=== PATIENT | male | born 1940 | race Caucasian/White ===

== ENCOUNTER 2018-05-22 10:39 | Inpatient (IN) | payer BC ==
[2018-05-22 12:12] LABS: Urine Blood NEGATIVE (NEG); Urine Glucose NEGATIVE (NEG); Urine Protein NEGATIVE (NEG); Urine pH 5.5 (5.0-7.0)
[2018-05-22] MEDS ORDERED: NA CHLORIDE 0.9% 1,000 ML ONE ×2 (12:12→13:50)
[2018-05-22] MEDS ORDERED: PANTOPRAZOLE 40 MG INJ ONE (12:12)
[2018-05-22] MEDS ORDERED: ONDANSETRON 4 MG/2 ML VIAL ONE (12:12)
[2018-05-22 13:00] LABS: Absolute Monocytes 0.7 K/uL (0.1-1.3); Absolute Neutrophil 11.2 K/uL (1.8-8.0); Basophils % 0.6 % (0-1.3); Lymphocytes % 14.4 % (15.3-44.8); MPV 8.9 fL (7.6-11.3); Monocytes % 5.2 % (3.3-12.3)
[2018-05-22 13:16] LABS: Albumin 3.3 g/dL (3.4-5.0); Bilirubin Direct 0.3 mg/dL (0-0.2); Bilirubin Total 0.9 mg/dL (0.2-1.0); Potassium 4.7 mmol/L (3.5-5.1); Protein, Total 6.8 g/dL (6.4-8.2)
--- NOTE | 2018-05-22 14:26 | ER ---
Nurse's Notes [facility] Name: Asim Ochoa Age: 77 yrs Sex: Male : 1940 Arrival Date: 05/22/2018 Time: 10:42 Bed 17 Private MD: Alexandra Freeman H Diagnosis: Gastrointestinal hemorrhage, unspecified-upper GI bleed;Orthostatic hypotension;Dehydration Presentation: 05/22 11:08 Presenting complaint: Patient states: Nausea and vomiting on , resolved aj currently, with frequent urination today. Denies burning. Patient reports generalized weakness and intermittent dizziness with urination. Transition of care: patient was not received from another setting of care. Onset of symptoms was May 20, 2018. Risk Assessment: Do you want to hurt yourself or someone else? Patient reports no desire to harm self or others. Initial Sepsis Screen: Does the patient meet any 2 criteria? No. Patient's initial sepsis screen is negative. Does the patient have a suspected source of infection? No. Patient's initial sepsis screen is negative. Care prior to arrival: None. 11:08 Method Of Arrival: Ambulatory 11:08 Acuity: JEFF 3 aj Triage Assessment: 11:10 General: Appears in no apparent distress. comfortable, Behavior is calm, cooperative, aj appropriate for age. Pain: Denies pain. Neuro: Level of Consciousness is awake, alert, obeys commands, Oriented to person, place, time, situation, Appropriate for age. Respiratory: Airway is patent Respiratory effort is even, unlabored, Respiratory pattern is regular, symmetrical. GI: Reports nausea, vomiting. : Reports urinary frequency. Derm: Skin is intact, is healthy with good turgor, Skin is pink, warm \\T\\ dry. normal. Historical: - Allergies: 11:10 No Known Allergies; aj - PMHx: 11:10 Hypertension; Ulcers; aj - PSHx: 11:10 Ulcer; aj - Immunization history:: Adult Immunizations up to date. - Social history:: Smoking status: Patient/guardian denies using tobacco, Patient uses alcohol, admits to "couple of beers" a day. - Ebola Screening: : Patient negative for fever greater than or equal to 101.5 degrees Fahrenheit, and additional compatible Ebola Virus Disease symptoms Patient denies exposure to infectious person Patient denies travel to an Ebola-affected area in the 21 days before illness onset No symptoms or risks identified at this time. Screenin:19 Abuse screen: Denies threats or abuse. Nutritional screening: No deficits noted. em Tuberculosis screening: No symptoms or risk factors identified. Fall Risk None identified. Assessment: 12:00 General: Appears in no apparent distress. comfortable, Behavior is calm, cooperative. em Pain: Denies pain. Neuro: Reports dizziness, weakness. Cardiovascular: Denies chest pain, Patient's skin is warm and dry. Respiratory: Airway is patent Respiratory effort is even, unlabored, Respiratory pattern is regular, symmetrical, Breath sounds are clear bilaterally. GI: Abdomen is flat, Bowel sounds present X 4 quads. Reports bloody stool, nausea, vomiting. : Urine is clear. EENT: No signs and/or symptoms were reported regarding the EENT system. Derm: Skin is intact, is healthy with good turgor, Skin is pink, warm \\T\\ dry. Musculoskeletal: Range of motion: intact in all extremities. 12:30 Reassessment: I agree with the above assessment by Vitaliy Brooke LVN. iw 13:17 Reassessment: Patient appears in no apparent distress at this time. Patient and/or em family updated on plan of care and expected duration. Pain level reassessed. Patient is alert, oriented x 3, equal unlabored respirations, skin warm/dry/pink. Patient denies pain at this time. Patient states feeling better. 14:00 Reassessment: Patient appears in no apparent distress at this time. Patient and/or em family updated on plan of care and expected duration. Pain level reassessed. Patient is alert, oriented x 3, equal unlabored respirations, skin warm/dry/pink. Patient states symptoms have improved. 15:00 Reassessment: Patient appears in no apparent distress at this time. Patient and/or em family updated on plan of care and expected duration. Pain level reassessed. Patient is alert, oriented x 3, equal unlabored respirations, skin warm/dry/pink. 15:15 Reassessment: Patient appears in no apparent distress at this time. Dr. Chirinos at em bedside discussing POC. 16:10 Reassessment: Patient appears in no apparent distress at this time. Patient and/or em family updated on plan of care and expected duration. Pain level reassessed. Patient is alert, oriented x 3, equal unlabored respirations, skin warm/dry/pink. Patient denies pain at this time. Patient states feeling better. 17:16 Reassessment: Patient appears in no apparent distress at this time. Patient and/or em family updated on plan of care and expected duration. Pain level reassessed. Patient is alert, oriented x 3, equal unlabored respirations, skin warm/dry/pink. Patient denies pain at this time. Patient states feeling better. Patient states symptoms have improved. Vital Signs: 11:10 BP 128 / 76; Pulse 96; Resp 16; Temp 97.7; Pulse Ox 100% on R/A; Weight 85.73 kg; aj Height 5 ft. 10 in. (177.80 cm); 12:15 BP 125 / 63; Pulse 83; Resp 18; Pulse Ox 99% on R/A; Pain 0/10; em 13:00 BP 142 / 79 Supine; Pulse 85; em 13:00 BP 110 / 70 Standing; Pulse 111; em 13:58 BP 120 / 69; Pulse 90; Resp 18; Pulse Ox 100% on R/A; Pain 0/10; em 15:00 BP 114 / 64; Pulse 85; Resp 16; Pulse Ox 99% on R/A; Pain 0/10; em 16:00 BP 141 / 78; Pulse 73; Resp 17; Pulse Ox 100% on R/A; em 17:25 BP 122 / 74; Pulse 96; Resp 16; Temp 98.6(O); Pulse Ox 100% on R/A; Pain 0/10; em 11:10 Body Mass Index 27.12 (85.73 kg, 177.80 cm) ED Course: 10:42 Patient arrived in ED. rg4 10:44 Alexandra Freeman DO is Private Physician. rg4 11:09 Triage completed. aj 11:10 Arm band placed on left wrist. Patient placed in an exam room. aj 11:14 Ankush Schroeder PA is PHCP. jr8 11:14 Michael Bautista MD is Attending Physician. jr8 11:16 Vitaliy Brooke LVN is Primary Nurse. em 11:19 Patient has correct armband on for positive identification. Bed in low position. Call em light in reach. 13:00 No provider procedures requiring assistance completed. Initial lab(s) drawn, by me, em sent to lab. X-ray(s) taken. Inserted saline lock: 20 gauge in right antecubital area, using aseptic technique. Blood collected. 14:12 CT completed. Patient moved to CT via stretcher. Patient moved back from CT. kw1 14:15 CT Abd/Pelvis - W/Contrast In Process Unspecified. EDMS 14:25 Leah Terrell MD is Hospitalizing Provider. jr8 16:00 Repeat lab(s) drawn. Inserted saline lock: 20 gauge in left forearm, using aseptic em technique. Blood collected. 17:51 Patient admitted, IV remains in place. em Administered Medications: 12:30 Drug: NS 0.9% 1000 ml Route: IV; Rate: 1000 ml; Site: right antecubital; em 13:57 Follow up: IV Status: Completed infusion; IV Intake: 1000ml em 12:32 Drug: Zofran 4 mg Route: IVP; Site: right antecubital; iw 13:58 Follow up: Response: No adverse reaction; Nausea is decreased em 12:32 Drug: ProTONIX 40 mg Route: IVP; Site: right antecubital; iw 13:30 Follow up: Response: No adverse reaction em 13:57 Drug: NS 0.9% 1000 ml Route: IV; Rate: 1 bolus; Site: right antecubital; em 15:08 Follow up: IV Status: Completed infusion; IV Intake: 1000ml em 15:55 Drug: ProTONIX 8 mg/hr Route: IV; Rate: 25 ml/hr; Site: right antecubital; em 17:59 Follow up: Response: No adverse reaction; IV Status: Infusion continued upon admission em 16:00 Drug: Octreotide Infusion (50 mcg/hr) - (Octreotide 500 mcg, NS 0.9% 500 ml) Route: IV; em Rate: 50 ml/hr; Site: left forearm; 17:59 Follow up: IV Status: Infusion continued upon admission em 18:00 Follow up: Response: No adverse reaction em Intake: 13:57 IV: 1000ml; Total: 1000ml. em 15:08 IV: 1000ml; Total: 2000ml. em Outcome: 14:25 Decision to Hospitalize by Provider. jr8 17:51 Admitted to Med/surg accompanied by tech, via wheelchair, room 404, with chart, Report em called to ALISON Damon 17:51 Condition: good 17:51 Instructed on the need for admit, Demonstrated understanding of instructions. 18:01 Patient left the ED. em Signatures: Dispatcher [employer] Kassi Nathan, Vitaliy Hussein RN, LUMBER HANDLER LUMBER HANDLER Raegan Sanchez RN RN iw Roszak, Josh, PA PA 8 Ludmila Andre 4 Anna Guy kw
--- NOTE | 2018-05-22 14:27 | EDPHYS ---
Physician Documentation [facility] Name: Asim Ochoa Age: 77 yrs Sex: Male : 1940 Arrival Date: 05/22/2018 Time: 10:42 Bed 17 Private MD: Alexandra Freeman H ED Physician Michael Bautista HPI: 05/22 12:08 This 77 yrs old Male presents to ER via Ambulatory with complaints of Nausea, jr8 Weakness. 12:08 The patient presents to the emergency department with nausea, vomiting. Onset: The jr8 symptoms/episode began/occurred acutely, 2 day(s) ago. Possible causes: unknown. The symptoms are aggravated by nothing. The symptoms are alleviated by nothing. Associated signs and symptoms: Pertinent positives: GI bleeding. Severity of symptoms: At their worst the symptoms were moderate in the emergency department the symptoms are unchanged. The patient has experienced a previous episode. The patient has not recently seen a physician. Patient stated that he had multiple episodes of vomiting on which some of it appeared coffee ground like. Since then has been having frequent urination and feels as if he may pass out. Has had this once before and ended up having gastric ulcer . Historical: - Allergies: 11:10 No Known Allergies; aj - PMHx: 11:10 Hypertension; Ulcers; aj - PSHx: 11:10 Ulcer; aj - Immunization history:: Adult Immunizations up to date. - Social history:: Smoking status: Patient/guardian denies using tobacco, Patient uses alcohol, admits to "couple of beers" a day. - Ebola Screening: : Patient negative for fever greater than or equal to 101.5 degrees Fahrenheit, and additional compatible Ebola Virus Disease symptoms Patient denies exposure to infectious person Patient denies travel to an Ebola-affected area in the 21 days before illness onset No symptoms or risks identified at this time. ROS: 12:34 Eyes: Negative for injury, pain, redness, and discharge, ENT: Negative for injury, jr8 pain, and discharge, Neck: Negative for injury, pain, and swelling, Cardiovascular: Negative for chest pain, palpitations, and edema, Respiratory: Negative for shortness of breath, cough, wheezing, and pleuritic chest pain, Back: Negative for injury and pain, MS/Extremity: Negative for injury and deformity, Skin: Negative for injury, rash, and discoloration, Neuro: Negative for headache, weakness, numbness, tingling, and seizure. 12:34 Abdomen/GI: Positive for nausea, vomiting, hematemesis. Exam: 12:34 Eyes: Pupils equal round and reactive to light, extra-ocular motions intact. Lids and jr8 lashes normal. Conjunctiva and sclera are non-icteric and not injected. Cornea within normal limits. Periorbital areas with no swelling, redness, or edema. ENT: Nares patent. No nasal discharge, no septal abnormalities noted. Tympanic membranes are normal and external auditory canals are clear. Oropharynx with no redness, swelling, or masses, exudates, or evidence of obstruction, uvula midline. Mucous membranes moist. Neck: Trachea midline, no thyromegaly or masses palpated, and no cervical lymphadenopathy. Supple, full range of motion without nuchal rigidity, or vertebral point tenderness. No Meningismus. Cardiovascular: Regular rate and rhythm with a normal S1 and S2. No gallops, murmurs, or rubs. Normal PMI, no JVD. No pulse deficits. Respiratory: Lungs have equal breath sounds bilaterally, clear to auscultation and percussion. No rales, rhonchi or wheezes noted. No increased work of breathing, no retractions or nasal flaring. Abdomen/GI: Soft, non-tender, with normal bowel sounds. No distension or tympany. No guarding or rebound. No evidence of tenderness throughout. Back: No spinal tenderness. No costovertebral tenderness. Full range of motion. Skin: Warm, dry with normal turgor. Normal color with no rashes, no lesions, and no evidence of cellulitis. MS/ Extremity: Pulses equal, no cyanosis. Neurovascular intact. Full, normal range of motion. Neuro: Awake and alert, GCS 15, oriented to person, place, time, and situation. Cranial nerves II-XII grossly intact. Motor strength 5/5 in all extremities. Sensory grossly intact. Cerebellar exam normal. Normal gait. 14:05 Abdomen/GI: Rectal exam: Prostate: normal, rectal tone normal, Stool: guaiac positive, jr8 black, hemorrhoid(s), external, without bleeding, without inflammation, without thrombosis, without pain. Vital Signs: 11:10 BP 128 / 76; Pulse 96; Resp 16; Temp 97.7; Pulse Ox 100% on R/A; Weight 85.73 kg; aj Height 5 ft. 10 in. (177.80 cm); 12:15 BP 125 / 63; Pulse 83; Resp 18; Pulse Ox 99% on R/A; Pain 0/10; em 13:00 BP 142 / 79 Supine; Pulse 85; em 13:00 BP 110 / 70 Standing; Pulse 111; em 13:58 BP 120 / 69; Pulse 90; Resp 18; Pulse Ox 100% on R/A; Pain 0/10; em 15:00 BP 114 / 64; Pulse 85; Resp 16; Pulse Ox 99% on R/A; Pain 0/10; em 16:00 BP 141 / 78; Pulse 73; Resp 17; Pulse Ox 100% on R/A; em 17:25 BP 122 / 74; Pulse 96; Resp 16; Temp 98.6(O); Pulse Ox 100% on R/A; Pain 0/10; em 11:10 Body Mass Index 27.12 (85.73 kg, 177.80 cm) aj MDM: 11:14 Patient medically screened. jr8 14:16 Data reviewed: vital signs, nurses notes, lab test result(s), radiologic studies, CT jr8 scan, and as a result, I will admit patient. Data interpreted: Pulse oximetry: on room air is 100 %. Interpretation: normal. Counseling: I had a detailed discussion with the patient and/or guardian regarding: the historical points, exam findings, and any diagnostic results supporting the discharge/admit diagnosis, lab results, radiology results, the need for further work-up and treatment in the hospital. ED course: Dr. Chirinos will consult and see patient for upper GI bleeding . 05/22 11:14 Order name: Basic Metabolic Panel; Complete Time: 13:05/22 11:14 Order name: CBC with Diff; Complete Time: 13:05/22 11:14 Order name: Creatinine for Radiology; Complete Time: 13:05/22 11:14 Order name: Hepatic Function; Complete Time: 13:19 05/22 11:14 Order name: Lipase; Complete Time: 13:05/22 11:40 Order name: TS; Complete Time: 14:10 05/22 11:59 Order name: Urine Dipstick--Ancillary (enter results) ag 05/22 13:41 Order name: CT Abd/Pelvis - W/Contrast; Complete Time: 14:58 05/22 14:09 Order name: Lactate; Complete Time: 15:41 05/22 14:09 Order name: Protime (+inr); Complete Time: 15:41 05/22 14:09 Order name: Ptt, Activated; Complete Time: 15:41 05/22 15:46 Order name: US Rp Exam Complete lorelei 05/22 16:10 Order name: Hemoglobin em 05/22 16:39 Order name: Hemoglobin; Complete Time: 16:40 EDMS 05/22 11:14 Order name: IV Saline Lock; Complete Time: 12:54 05/22 11:14 Order name: Labs collected and sent; Complete Time: 12:54 05/22 11:14 Order name: Urine Dipstick-Ancillary (obtain specimen); Complete Time: 12:54 05/22 11:40 Order name: Orthostatics; Complete Time: 13:14 Administered Medications: 12:30 Drug: NS 0.9% 1000 ml Route: IV; Rate: 1000 ml; Site: right antecubital; em 13:57 Follow up: IV Status: Completed infusion; IV Intake: 1000ml em 12:32 Drug: Zofran 4 mg Route: IVP; Site: right antecubital; iw 13:58 Follow up: Response: No adverse reaction; Nausea is decreased em 12:32 Drug: ProTONIX 40 mg Route: IVP; Site: right antecubital; iw 13:30 Follow up: Response: No adverse reaction em 13:57 Drug: NS 0.9% 1000 ml Route: IV; Rate: 1 bolus; Site: right antecubital; em 15:08 Follow up: IV Status: Completed infusion; IV Intake: 1000ml em 15:55 Drug: ProTONIX 8 mg/hr Route: IV; Rate: 25 ml/hr; Site: right antecubital; em 17:59 Follow up: Response: No adverse reaction; IV Status: Infusion continued upon admission em 16:00 Drug: Octreotide Infusion (50 mcg/hr) - (Octreotide 500 mcg, NS 0.9% 500 ml) Route: IV; em Rate: 50 ml/hr; Site: left forearm; 17:59 Follow up: IV Status: Infusion continued upon admission em 18:00 Follow up: Response: No adverse reaction em Disposition: 05/22/18 14:25 Hospitalization ordered by Leah Terrell for Inpatient Admission. Preliminary diagnosis are Gastrointestinal hemorrhage, unspecified - upper GI bleed, Orthostatic hypotension, Dehydration. - Bed requested for Telemetry/MedSurg (Inpatient). - Status is Inpatient Admission. em - Condition is Stable. - Problem is new. - Symptoms have improved. UTI on Admission? No Addendum: 05/26/2018 08:02 Co-signature as Attending Physician, Michael Bautista MD I agree with the assessment and c brantley plan of care. Signatures: Dispatcher [employer] Kassi Nathan RN RN aj Anderson, Corey, MD MD cha Munoz, Edgar, WELD TECHNICIAN WELD TECHNICIAN em Raegan Egan RN RN iw Ankush Schroeder, PA PA jr8 Karla Arechiga ag Corrections: (The following items were deleted from the chart) 05/22 14:05 12:34 Eyes: Pupils equal round and reactive to light, extra-ocular motions intact. Lids jr8 and lashes normal. Conjunctiva and sclera are non-icteric and not injected. Cornea within normal limits. Periorbital areas with no swelling, redness, or edema. ENT: Nares patent. No nasal discharge, no septal abnormalities noted. Tympanic membranes are normal and external auditory canals are clear. Oropharynx with no redness, swelling, or masses, exudates, or evidence of obstruction, uvula midline. Mucous membranes moist. Neck: Trachea midline, no thyromegaly or masses palpated, and no cervical lymphadenopathy. Supple, full range of motion without nuchal rigidity, or vertebral point tenderness. No Meningismus. Cardiovascular: Regular rate and rhythm with a normal S1 and S2. No gallops, murmurs, or rubs. Normal PMI, no JVD. No pulse deficits. Respiratory: Lungs have equal breath sounds bilaterally, clear to auscultation and percussion. No rales, rhonchi or wheezes noted. No increased work of breathing, no retractions or nasal flaring. Abdomen/GI: Soft, non-tender, with normal bowel sounds. No distension or tympany. No guarding or rebound. No evidence of tenderness throughout. Back: No spinal tenderness. No costovertebral tenderness. Full range of motion. Skin: Warm, dry with normal turgor. Normal color with no rashes, no lesions, and no evidence of cellulitis. MS/ Extremity: Pulses equal, no cyanosis. Neurovascular intact. Full, normal range of motion. Neuro: Awake and alert, GCS 15, oriented to person, place, time, and situation. Cranial nerves II-XII grossly intact. Motor strength 5/5 in all extremities. Sensory grossly intact. Cerebellar exam normal. Normal gait. jr8 14:25 14:25 Hospitalization Ordered by Leah Terrell MD for Inpatient Admission. Preliminary jr8 diagnosis is Gastrointestinal hemorrhage, unspecified; Orthostatic hypotension; Dehydration. Bed requested for Telemetry/MedSurg (Inpatient). Status is Inpatient Admission. Condition is Stable. Problem is new. Symptoms have improved. UTI on Admission? No. jr8 16:57 14:25 05/22/2018 14:25 Hospitalization Ordered by Leah Terrell MD for Inpatient ag Admission. Preliminary diagnosis is Gastrointestinal hemorrhage, unspecified - upper GI bleed; Orthostatic hypotension; Dehydration. Bed requested for Telemetry/MedSurg (Inpatient). Status is Inpatient Admission. Condition is Stable. Problem is new. Symptoms have improved. UTI on Admission? No. jr8 18:01 16:57 05/22/2018 14:25 Hospitalization Ordered by Leah Terrell MD for Inpatient em Admission. Preliminary diagnosis is Gastrointestinal hemorrhage, unspecified - upper GI bleed; Orthostatic hypotension; Dehydration. Bed requested for Telemetry/MedSurg (Inpatient). Status is Inpatient Admission. Condition is Stable. Problem is new. Symptoms have improved. UTI on Admission? No. ag
--- NOTE | 2018-05-22 14:49 | RAD REPORT ---
EXAM DESCRIPTION: CT - Abdomen Pelvis W Contrast - 05/22/2018 2:15 pm CLINICAL HISTORY: Abdominal pain with vomiting/dysuria COMPARISON: none. TECHNIQUE: Computed axial tomography of the abdomen pelvis was obtained. 100 cc Isovue-300 was admin istered intravenously. Oral contrast was not requested which limits evaluation of bowel. All CT scans are performed using dose optimization technique as appropriate and may include automated exposure control or mA/KV adjustment according to patient size. FINDINGS: Several small gallstones are present. Gallbladder wall is not thickened. The liver, pancreas, adrenal and right kidney appear unremarkable. Splenic granulomata. A 10 millimet er intermediate density mass is present within the left kidney. There is no evidence of diverticulitis. Spondylolysis involves L5. Mild anterior subluxation of L5 on S1 The appendix is normal Wall of the distal stomach appears thickened IMPRESSION: Cholelithiasis without evidence of cholecystitis 10 millimeter left renal mass does not represent a simple cyst. It may represent a benign complex cys t or neoplasm. It is recommended that the patient have Add nonemergent renal ultrasound for further e valuation Wall of the distal stomach appears thickened. This can be secondary to incomplete distention or patho logy such as inflammation or mass
[2018-05-22] MEDS ORDERED: PANTOPRAZOLE INJ 80 MG in NA CHLORIDE 0.9% 250 ML IV SCH (15:00)
[2018-05-22 15:05] LABS: Protime INR 1.13
[2018-05-22] MEDS ORDERED: OCTREOTIDE 500 MCG in NA CHLORIDE 0.9% 500 ML IV SCH (16:00)
--- NOTE | 2018-05-22 18:24 | P.HP ---
Certification for Inpatient Patient admitted to: Inpatient With expected LOS: >2 Midnights Patient will require the following post-hospital care: None Practitioner: I am a practitioner with admitting privileges, knowledge of patient current condition, hospital course, and medical plan of care. Services: Services provided to patient in accordance with Admission requirements found in Title 42 Section 412.3 of the Code of Federal Regulations Patient History Date of Service: 05/22/18 Primary Care Provider: Dr ADAME Reason for admission: GI bleed History of Present Illness: This is a 77-year-old male with significant past medical history of high blood pressure and gastric ulcer who has had gastric ulcer for over 26 years presented to the ED complaining of having some coffee-ground emesis since past 2 days. Patient stated that he had 1 episode of her meds this about 3 days ago and has got progressively worse. Patient has also noticed that he has had black tarry stools for past couple of days as well. Patient initially was doing well however recently started having some weakness and dizziness associated with the emesis and black tarry stool and thus decided to come to the ER to get further checked out. Patient states that about 26 years ago he has had gastric ulcers were he had an EGD done with the bleeding. Denies having any nausea constipation diarrhea shortness of breath or chest pain at this time. No other complaints to offer at this time Allergies No Known Allergies Allergy (Verified 05/22/18 18:35) Home medications list reviewed: Yes - Past Medical/Surgical History Has patient received pneumonia vaccine in the past: No Diabetic: No -: Hypertension -: Gastric ulcer Past Surgical History: Reviewed- Non-Contributory - Family History Family History: Reviewed- Non-Contributory - Social History Smoking Status: Never smoker Counseled patient to stop smoking for: less than 10 minutes Smoking therapy provided: No Patient receptive to therapy: No Alcohol use: No CD- Drugs: No Caffeine use: No Place of Residence: Home Review of Systems 10-point ROS is otherwise unremarkable Physical Examination - Vital Signs Temperature: 98.6 F Blood Pressure: 122/74 Pulse: 96 Respirations: 16 - Physical Exam General: Alert, In no apparent distress HEENT: Atraumatic, PERRLA, Mucous membr. moist/pink, EOMI, Sclerae nonicteric Neck: Supple, 2+ carotid pulse no bruit, No LAD, Without JVD or thyroid abnormality Respiratory: Clear to auscultation bilaterally, Normal air movement Cardiovascular: Regular rate/rhythm, Normal S1 S2 Gastrointestinal: Normal bowel sounds, No tenderness Musculoskeletal: No tenderness Integumentary: No rashes Neurological: Normal gait, Normal speech, Normal strength at 5/5 x4 extr, Normal tone, Normal affect Lymphatics: No axilla or inguinal lymphadenopathy - Studies Laboratory Data (last 24 hrs) 05/22/18 14:35: PT 13.3 H, INR 1.13, APTT 24.0 L 05/22/18 12:30: Creatinine 1.10 05/22/18 12:30: WBC 14.2 H, Hgb 12.8 L, Hct 38.0 L, Plt Count 250 05/22/18 12:30: Sodium 146 H, Potassium 4.7, BUN 41 H, Creatinine 1.07, Glucose 148 H, Total Bilirubin 0.9, AST 15, ALT 16, Alkaline Phosphatase 78, Lipase 150 Assessment and Plan - Problems (Diagnosis) (1) Upper GI bleed Current Visit: Yes Status: Acute Plan: Patient with acute upper GI bleed with coffee-ground emesis and black tarry stool -H&H is stable at this time. Will repeat q.4 hr -placed on IV Protonix and octreotide at this time -general surgery consulted. Recommendations appreciated at this time -GI unavailable at this time -general surgery planned to do EGD in about 24-48 hr (2) Hypertension Current Visit: Yes Status: Chronic Plan: Stable at this time Qualifiers: Hypertension type: essential hypertension Qualified Code(s): I10 - Essential (primary) hypertension (3) History of gastric ulcer Current Visit: Yes Status: Chronic Plan: For over 26 years has been taking Protonix. Currently on Protonix - Plan Patient will be admitted to medical-surgical floor for further treatment of his upper GI bleed. Discharge Plan: Home Plan to discharge in: 48 Hours - Advance Directives Does patient have a Living Will: No Does patient have a Durable POA for Healthcare: No - Code Status/Comfort Care Code Status Assessed: Yes Critical Care: No
[2018-05-22 18:34] VITALS: BMI 24.0
[2018-05-22] MEDS ORDERED: ONDANSETRON 4 MG/2 ML VIAL IV PRN (18:36)
[2018-05-22 20:11] LABS: Hematocrit 31.2 % (39.6-49.0)
--- NOTE | 2018-05-22 20:37 | CON ---
Date of Consultation: 05/22/2018 Brief History Of Present Illness: Patient is a 77-year-old male, who presents to the [facility] after an episode of vomiting bloody material on . He states that he was in his normal st ate of health prior to this and was doing well, but had not had increased appetite as of the last few days. He had been having normal bowel movements, which were nonbloody. He normally checks his stoo l for blood as he has had a history of bleeding gastric ulcer approximately 26 years ago, treated wit h endoscopy and ablation at that time by his report. He states that since then he has had no recurre nt episodes. He has not never had a colonoscopy and has not had any repeat endoscopy, but has no lesia dence of GI bleeding until this most recent episode. He had 1 episode of black coffee-grounds emesis . There was no bright red component and then several days later, he developed black tarry stool and some dizziness and fatigue, as such he came to the emergency room with the above-stated complaints. Past Medical History: Significant for hypertension and gastric ulcers. Past Surgical History: He has had an EGD and ablation/cautery of bleeding gastric ulcer. Allergies: NO KNOWN DRUG ALLERGIES. Medications: He only takes an antihypertensive, which he cannot recall the name of right now, but de nies taking any blood thinners including aspirin. Social History: Denies smoking. He drinks a 12-pack of beer per week minimum. He denies any recrea tional drug use. 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 Review of Systems: A 10-point review of systems other than HPI denies. Physical Examination: Vital Signs: At the time of my examination, his vital signs were stable. His vital signs showed a b lood pressure 128/76, pulse of 96, respiratory rate 16, temperature 97.7. He is saturating 100% on r oom air. He is approximately 5 foot 10 inch, 85 kg. General: He is awake, alert, oriented. Psychiatric: He is appropriate and conversive. HEENT: Normocephalic. Sclerae are anicteric. His mucous membranes are moist. His oropharynx is cl ear. Neck: Supple. No JVD Chest: Normal expansion and excursion. Cardiovascular: Regular rate and rhythm. Pulmonary: Clear to auscultation bilaterally. Abdomen: Soft, nontender, nondistended. No rebound. No guarding. No focal peritonitis. Extremities: No clubbing, cyanosis, or edema. Skin: Warm and dry. Laboratory Data: Reveals a white blood count 14.2, hemoglobin is 12.8, hematocrit of 38.0, platelet count is 250, neutrophils 78%. His PT 13.3, INR 1.13, PTT is 24.0. His sodium was 136, potassium 4. 7, chloride 112, carbon dioxide 27, BUN 41, creatinine 1.1, glucose is 148, lactic acid is 2.3, total bilirubin 0.9, direct component 0.3, AST 15, ALT 16, alkaline phosphatase is 78, lipase is 150. UA was essentially negative. He had imaging performed, which included an abdomen and pelvis CT, which w as officially read as cholelithiasis without evidence of cholecystitis. A 10 mm left renal mass does not represent a simple cyst. It may represent a benign complex cyst or neoplasm. It is recommended the patient have a nonemergent renal ultrasound for further evaluation. The distal stomach appears thickened. It could be secondary to incomplete distention or pathology such as inflammation or mass. Assessment And Plan: This is a 77-year-old male, who comes in with gastrointestinal bleeding, likely acute upper gastrointestinal bleeding. 1.IV fluid hydration. 2.Recheck labs and check hemoglobin counts to see if patient requires transfusion or any increased r esuscitation. 3.I have explained the risks, benefits, and alternatives of endoscopy, EGD, and control of bleeding pathology including, but not limited to bleeding, infection, damage to surrounding tissues, perforati on, need for further operations and procedures. I have also explained that should we not be able to obtain control and there is a bleeding ulcer, which is symptomatic, we will likely need to proceed wi th emergency surgery and the risks, benefits, and alternatives of that particular plan. Patient agre es to proceed as indicated. Continue medical management. I will follow along with you. DEVIKA/RODNEY Voice ID: [id number] Report ID: [id number]
[2018-05-22] MEDS: NA CHLORIDE 0.9% 1,000 ML IV SCH (20:38)
--- NOTE | 2018-05-22 21:00 | RAD REPORT ---
EXAM DESCRIPTION: US - Renal Ultrasound-Complete - 05/22/2018 5:22 pm CLINICAL HISTORY: . Renal mass COMPARISON: May 22, 2018 cat scan FINDINGS: The right kidney measures 10 cm with a normal echotexture. The left kidney measures 10 cm with a normal echotexture. Hydronephrosis is not seen. No gross abnormality of the bladder noted IMPRESSION: The 10 millimeter mass within the left kidney seen on the CT scan on the same date is no t visualized on this examination. It is recommended that the patient have an unenhanced CT scan of th e kidneys. This can be compared with the CT scan performed today to determine if there is abnormal en hancement
[2018-05-23 01:02] LABS: Hematocrit 32.5 % (39.6-49.0)
[2018-05-23] MEDS: PANTOPRAZOLE INJ 80 MG in NA CHLORIDE 0.9% 250 ML IV SCH ×4 (02:00→22:00)
[2018-05-23] MEDS: OCTREOTIDE 500 MCG in NA CHLORIDE 0.9% 500 ML IV SCH ×2 (04:11→16:02)
[2018-05-23] MEDS: NA CHLORIDE 0.9% 1,000 ML IV SCH ×2 (04:17→14:36)
[2018-05-23 05:31] LABS: Absolute Lymphocytes (CBC) 2.7 K/uL (0.7-4.9); Absolute Monocytes 0.7 K/uL (0.1-1.3); Absolute Neutrophil 3.9 K/uL (1.8-8.0); Eosinophils % 4.6 % (0-4.4); Hematocrit 30.5 % (39.6-49.0); Lymphocytes % 34.4 % (15.3-44.8); MPV 8.5 fL (7.6-11.3); Monocytes % 9.4 % (3.3-12.3); RBC Red Blood Cell Count 3.22 M/uL (4.33-5.43)
[2018-05-23 05:45] LABS: Albumin 2.9 g/dL (3.4-5.0); Bilirubin Total 0.8 mg/dL (0.2-1.0); Magnesium 2.3 mg/dL (1.8-2.4); Phosphorus 2.9 mg/dL (2.5-4.9); Potassium 4.3 mmol/L (3.5-5.1); Protein, Total 5.6 g/dL (6.4-8.2)
[2018-05-23] MEDS ORDERED: INFLUENZA VACCINE (for 3y+) 0.5 ML DOSE IMVAC ONE (08:00)
[2018-05-23 08:32] LABS: Hematocrit 31.4 % (39.6-49.0)
--- NOTE | 2018-05-23 09:53 | P.PN ---
Subjective Date of Service: 05/23/18 Primary Care Provider: Dr ADAME Chief Complaint: GI bleed Subjective: Improving (Patient has no pain, has increased appetite, not dizzy, or light headed any longer) Physical Examination - Vital Signs Temperature: 97.9 F Blood Pressure: 133/65 Pulse: 82 Respirations: 16 Pulse Ox (%): 100 - Physical Exam General: Alert, In no apparent distress, Cooperative Gastrointestinal: Soft and benign, Non-distended, No ascites, No tenderness, No masses, No rebound, No guarding - Studies Laboratory Data (last 24 hrs) 05/22/18 14:35: PT 13.3 H, INR 1.13, APTT 24.0 L 05/22/18 12:30: Creatinine 1.10 05/22/18 12:30: WBC 14.2 H, Hgb 12.8 L, Hct 38.0 L, Plt Count 250 05/22/18 12:30: Sodium 146 H, Potassium 4.7, BUN 41 H, Creatinine 1.07, Glucose 148 H, Total Bilirubin 0.9, AST 15, ALT 16, Alkaline Phosphatase 78, Lipase 150 Assessment And Plan - Current Problems (Diagnosis) (1) Upper GI bleed Current Visit: Yes Status: Acute Plan: - continue medical management - clear liquid diet today - NPO after midnight - EGD (upper endoscopy) in AM - I have explained the risks, benefits, and alternatives to EGD including but not limited to bleeding, infection, perforation, damage to surrounding organs, need for more surgery, he agrees to proceed
--- NOTE | 2018-05-23 12:25 | P.PN ---
Subjective Date of Service: 05/23/18 Primary Care Provider: Dr ADAME Chief Complaint: GI bleed Subjective: Tolerating diet, Ambulating, Improving, Doing well Review of Systems 10-point ROS is otherwise unremarkable Physical Examination - Vital Signs Temperature: 97.9 F Blood Pressure: 133/65 Pulse: 82 Respirations: 16 Pulse Ox (%): 100 - Physical Exam General: Alert, In no apparent distress HEENT: Atraumatic, PERRLA, EOMI Neck: Supple, JVD not distended Respiratory: Clear to auscultation bilaterally, Normal air movement Cardiovascular: Regular rate/rhythm, Normal S1 S2 Gastrointestinal: Normal bowel sounds, No tenderness Musculoskeletal: No tenderness Integumentary: No rashes Neurological: Normal speech, Normal tone, Normal affect Lymphatics: No axilla or inguinal lymphadenopathy - Studies Laboratory Data (last 24 hrs) 05/22/18 14:35: PT 13.3 H, INR 1.13, APTT 24.0 L 05/22/18 12:30: Creatinine 1.10 05/22/18 12:30: WBC 14.2 H, Hgb 12.8 L, Hct 38.0 L, Plt Count 250 05/22/18 12:30: Sodium 146 H, Potassium 4.7, BUN 41 H, Creatinine 1.07, Glucose 148 H, Total Bilirubin 0.9, AST 15, ALT 16, Alkaline Phosphatase 78, Lipase 150 Medications List Reviewed: Yes Assessment And Plan - Current Problems (Diagnosis) (1) Upper GI bleed Current Visit: Yes Status: Acute Plan: Patient with acute upper GI bleed with coffee-ground emesis and black tarry stool -H&H is stable at this time. Will repeat q.4 hr -placed on IV Protonix and octreotide at this time -general surgery consulted. Recommendations appreciated at this time -GI unavailable at this time -general surgery planned to do EGD aniya AM (2) Hypertension Current Visit: Yes Status: Chronic Plan: Stable at this time Qualifiers: Hypertension type: essential hypertension Qualified Code(s): I10 - Essential (primary) hypertension (3) History of gastric ulcer Current Visit: Yes Status: Chronic Plan: For over 26 years has been taking Protonix. Currently on Protonix - Plan Pending Clinical Improvement. Planned for EGD tomorrow Discharge Plan: Home Plan to discharge in: 48 Hours - Code Status/Comfort Care Code Status Assessed: Yes Critical Care: No
[2018-05-23 12:35] LABS: Hematocrit 31.1 % (39.6-49.0)
--- NOTE | 2018-05-23 13:32 | EKG ---
Test Date: 2018-05-23 Test Time: 01:43:57 Telecommunication Systems Designer: HAIR ASSISTANT MEASUREMENT RESULTS: Intervals: Rate: 65 PA: QRSD: 148 QT: 438 QTc: 455 [place]: P: PA: QRS: -59 T: 42 INTERPRETIVE STATEMENTS: Atrial fibrillation Left axis deviation Right bundle branch block Abnormal ECG No previous ECG available for comparison Electronically Signed On 05-23-18 13:21:40 GRADUATE FELLOW by Sarabjit Saucedo
--- NOTE | 2018-05-23 22:58 | CON ---
Date of Consultation: 05/23/[address] Terrell's service on 05/22/2018. I saw the patient on 05/23/2018. Reason For Consultation: Atrial fibrillation. History Of Present Illness: Mr. Ochoa is a 77-year-old white man, very healthy for his age, had a history of peptic ulcer disease approximately 20 years ago. Has a history of hypertension. Dr. Freeman takes care of him and gives him Lotrel for that and has been fairly well controlled. He came in with an upper GI bleed, was found to have hemoglobin of approximately 10.2. Rest of his blood work was u nremarkable. He was found to be in atrial fibrillation at a rate of 82, unknown duration. The patie nt has not had atrial fibrillation in the past as far as he knows, but has no symptoms with it, so th e onset of that is certainly unknown. He denied any cardiac symptoms with that. Past Medical History: Otherwise as stated earlier. Allergies: NONE. Review of Systems: Negative. Social History: Negative for tobacco, alcohol, or drug use. Family History: Unremarkable. Medications: At home include Lotrel. Physical Examination: Vital Signs: Stable. He was in atrial fibrillation at a rate of 80. Afebrile. HEENT: Negative. Neck: Supple with no bruit. Chest: Clear. Cardiac: Revealed atrial fibrillation. No murmurs, gallops, or rubs. Abdomen: Benign. Extremities: Revealed no clubbing, cyanosis, or edema. Diagnostic Data: As stated earlier. Impression And Plan: Atrial fibrillation of unknown duration, asymptomatic. The patient has an echo cardiogram pending. I think he needs to be cared for from a gastrointestinal bleed standpoint first and needs to have an upper endoscopy, and he is cleared for that. After the endoscopy, we will make a decision regarding anticoagulation. Certainly, the echocardiogram will help us in that direction. Despite his age and his hypertension, he still had a low CHADS score. If his echocardiogram is norm al, we may suffice with aspirin. I will make sure he gets an outpatient Lexiscan, and an appointment with me in the near future. AMANDA/RODNEY Voice ID: [id number] Report ID: [id number]
[2018-05-24] MEDS: NA CHLORIDE 0.9% 1,000 ML IV SCH ×5 (00:36→20:36)
[2018-05-24] MEDS: OCTREOTIDE 500 MCG in NA CHLORIDE 0.9% 500 ML IV SCH (01:40)
[2018-05-24] MEDS ORDERED: PANTOPRAZOLE 40 MG INJ ONE (04:32)
[2018-05-24] MEDS ORDERED: NA CHLORIDE 0.9% 250 ML ONE (04:32)
[2018-05-24] MEDS: PANTOPRAZOLE INJ 80 MG in NA CHLORIDE 0.9% 250 ML IV SCH ×2 (05:15→08:00)
[2018-05-24 06:39] LABS: Absolute Monocytes 0.6 K/uL (0.1-1.3); Absolute Neutrophil 3.4 K/uL (1.8-8.0); Eosinophils % 5.1 % (0-4.4); Hematocrit 29.3 % (39.6-49.0); Lymphocytes % 31.2 % (15.3-44.8); MPV 8.8 fL (7.6-11.3); Monocytes % 9.2 % (3.3-12.3); RBC Red Blood Cell Count 3.07 M/uL (4.33-5.43)
[2018-05-24 07:15] LABS: ALT/SGPT 14 U/L (12-78); AST/SGOT 15 U/L (15-37); Albumin 2.9 g/dL (3.4-5.0); Alkaline Phosphatase 62 U/L (45-117); BUN Blood Urea Nitrogen 14 mg/dL (7-18); Bicarbonate 23 mmol/L (21-32); Bilirubin Total 0.7 mg/dL (0.2-1.0); Folic Acid, (Folate) 14.2 ng/mL (3.1-17.5); Glucose Level 87 mg/dL (74-106); Magnesium 2.2 mg/dL (1.8-2.4); Phosphorus 2.6 mg/dL (2.5-4.9); Protein, Total 5.6 g/dL (6.4-8.2); Sodium Level 144 mmol/L (136-145); Thyroid Stimulating Hormone 0.212 uIU/mL (0.360-3.740)
[2018-05-24] MEDS ORDERED: BENAZEPRIL PO SCH (09:00)
[2018-05-24] MEDS: AMLODIPINE 10 MG TAB PO SCH (09:00)
[2018-05-24] MEDS ORDERED: [UNRECOGNIZED DRUG - OTHER] PO SCH (09:00)
[2018-05-24] MEDS: BENAZEPRIL 20 MG TAB PO SCH (09:00)
[2018-05-24] MEDS ORDERED: AMLODIPINE BESYLATE PO SCH (09:00)
[2018-05-24] MEDS ORDERED: LIDOCAINE 1% MPF 2 ML AMPULE ONE (09:28)
[2018-05-24] MEDS ORDERED: PROPOFOL 200 MG/20 ML VIAL IV ONE (09:28)
[2018-05-24] MEDS ORDERED: Ringers Lactate 1,000 ML IV ONE (09:34)
--- NOTE | 2018-05-24 09:49 | ENDO RPT ---
[address], [address] EGD PROCEDURE REPORT EXAM DATE: 05/24/2018 PATIENT NAME: Asim Ochoa MR#: [id number] BIRTHDATE: 1940 ATTENDING: Michael Chirinos DR STATUS: inpatient - 7 DIRECTOR OF HOTEL: Yen Elizabeth RN and Polo Peterson [facility] INDICATIONS: The patient is a 77 yr old Male here for an EGD due to upper G.I. bleeding PROCEDURE PERFORMED: EGD with biopsy for H. pylori MEDICATIONS: Per Anesthesia. TOPICAL ANESTHETIC: none CONSENT: The patient understands the risks and benefits of the procedure and understands that these risks include, but are not limited to: sedation, allergic reaction, infection, perforation and/or bleeding. Alternative means of evaluation and treatment include, among others: physical exam, x-rays, and/or surgical intervention. The patient elects to proceed with this endoscopic procedure. DESCRIPTION OF PROCEDURE: During intra-op preparation period all mechanical medical equipment was checked for proper function. Hand hygiene and appropriate measures for infection prevention was taken. Procedure, possible complications, and alternatives including but not limited to the possibility of bleeding, perforation, tear, infection, sepsis, need for surgery, need for blood transfusion, and anesthesia related complications were explained to the patient. After the risks, benefits and alternatives of the procedure were thoroughly explained, Informed consent was verified, confirmed and timeout was successfully executed by the treatment team. The patient was placed in the left lateral position. The patient was anesthetized with topical anesthesia. Through the anesthetized oropharyngeal area, the scope was passed without any difficulty. The Pentax EG-[id number] ([id number]) endoscope was introduced through the mouth and advanced to the first portion of the duodenum. Retroflexed views revealed no abnormalities. The gastroscope was then slowly withdrawn and removed. LA Class A esophagitis was found in the gastroesophageal junction, there was a small erosion at this region, which had evidence of recent bleeding, and I suspect may have been the source of the upper GI bleeding. A Biopsy Performed A biopsy for H. pylori was taken. Duodenitis was found in the bulb of the duodenum. A biopsy for H. pylori was taken. Mild gastritis was found in the total stomach. A biopsy for H. pylori was taken. ADVERSE EVENTS: There were no complications. IMPRESSIONS: 1. LA Class A esophagitis was found in the gastroesophageal junction 2. Duodenitis was found in the bulb of the duodenum 3. Mild gastritis was found in the total stomach RECOMMENDATIONS: 1. anti-reflux regimen 2. acid suppression therapy 3. await biopsy results 4. avoid NSAIDS 5. Protonix 40mg 6. follow-up of helicobacter pylori status, treat if indicated 7. hemmoccult stools 8. begin feeding tomorrow REPEAT EXAM: Return in 2 week(s) for Colonoscopy. Never had Colonoscopy Michael Chirinos DR eSigned: Michael Chirinos DR 05/24/2018 9:48 AM cc: CPT CODES: ICD9 CODES: PATIENT NAME: Asim Ochoa MR#: [id number]
--- NOTE | 2018-05-24 09:58 | P.PN ---
Subjective Date of Service: 05/24/18 Patient had a rhythm change. Patient had AFib but was now AFib with slow ventricular response. Heart rate was dropping to the 30s. Patient was on octreotide-this is day 2. This will be discontinued. Will get an echocardiogram. Will notify Cardiology. Check thyroid studies as well. Will see how patient's heart rate response off of octreotide. Review of Systems 10-point ROS is otherwise unremarkable Physical Examination - Vital Signs Temperature: 97 F Blood Pressure: 150/86 Pulse: 50 Respirations: 18 Pulse Ox (%): 98 - Physical Exam General: Alert, In no apparent distress HEENT: Atraumatic, PERRLA, EOMI Neck: Supple, JVD not distended Respiratory: Clear to auscultation bilaterally, Normal air movement Cardiovascular: Irregular heart rate/rhythm (Slow ventricular response) Gastrointestinal: Normal bowel sounds, Soft and benign, No tenderness Musculoskeletal: No tenderness Integumentary: No rashes Neurological: Normal speech, Normal tone, Normal affect Lymphatics: No axilla or inguinal lymphadenopathy - Studies Medications List Reviewed: Yes Assessment & Plan - Problems (Diagnosis) (1) Encounter for monitoring octreotide therapy Current Visit: Yes Status: Acute (2) Atrial fibrillation with slow ventricular response Current Visit: Yes Status: Acute (3) Upper GI bleed Onset Date: 05/24/18 Current Visit: Yes Status: Acute (4) History of gastric ulcer Current Visit: Yes Status: Chronic (5) Hypertension Onset Date: 05/24/18 Current Visit: Yes Status: Chronic Qualifiers: Hypertension type: essential hypertension Qualified Code(s): I10 - Essential (primary) hypertension - Plan Plan: 1. Thyroid studies 2. Stop octreotide-this is dose dependent and patient is been on octreotide for around 48 hr. 3. Notify Cardiology 4. Echocardiogram 5. Notify surgery 6. Monitor telemetry 7. GI and DVT prophylaxis Discharge Plan: Home Plan to discharge in: Greater than 2 days - Advance Directives Does patient have a Living Will: Yes Does patient have a Durable POA for Healthcare: Yes - Code Status/Comfort Care Code Status Assessed: No Code Status: Full Code Critical Care: No Time Spent Managing PTS Care (In Minutes): 45
[2018-05-24] MEDS ORDERED: SODIUM CHLORIDE 0.9% 10ML INJ IV PRN (10:56)
--- NOTE | 2018-05-24 11:15 | PN ---
Subjective: Mr. Ochoa is in sinus bradycardia today, 58 on the monitor while sitting, resting. He is asymptomatic. Overnight, he received octreotide and this caused bradycardia, some pauses while h e was in atrial fibrillation. Now, he is in sinus rhythm. Octreotide has been stopped. Bleeding brantley s apparently resolved, so I think we can safely attribute the profound bradycardia to the octreotide. I consider him a low-risk patient for undergoing endoscopy today under the care of Dr. Chirinos. MARGARITA/RODNEY Voice ID: [id number] Report ID: [id number]
[2018-05-24] MEDS: TRAMADOL HCL 50 MG TAB PO PRN ×2 (11:26→18:17)
--- NOTE | 2018-05-24 12:53 | EKG ---
Test Date: 2018-05-24 Test Time: 07:36:40 [employer] Agent [employer] Insurance: [employer] MEASUREMENT RESULTS: Intervals: Rate: 65 [place]: QRSD: 150 QT: 464 QTc: 482 [place]: P: LA: QRS: -55 T: 37 INTERPRETIVE STATEMENTS: Atrial fibrillation Left axis deviation Right bundle branch block Anterior infarct, age undetermined Abnormal ECG Compared to ECG 05/23/2018 01:43:57 Myocardial infarct finding now present Electronically Signed On 05-24-18 12:52:49 GENERAL OPERATIONS MANAGER by Aristides Unger
--- NOTE | 2018-05-24 14:45 | P.PN ---
Subjective Date of Service: 05/24/18 Primary Care Provider: Dr ADAME Chief Complaint: GI bleed Patient seen and examined at bedside with RN. Chart reviewed. Case discussed with general surgery along with Cardiology. Overnight patient had heart rate dropped down to 20 after being started on Betapace. Betapace has been on hold at this time. No other complaints to offer. Normal symptoms noted as well. Patient remained asymptomatic overnight as well Review of Systems 10-point ROS is otherwise unremarkable Physical Examination - Vital Signs Temperature: 98.6 F Blood Pressure: 123/62 Pulse: 54 Respirations: 16 Pulse Ox (%): 100 - Physical Exam General: Alert, In no apparent distress HEENT: Atraumatic, PERRLA, EOMI Neck: Supple, JVD not distended Respiratory: Clear to auscultation bilaterally, Normal air movement Cardiovascular: Regular rate/rhythm, Normal S1 S2 Gastrointestinal: Normal bowel sounds, No tenderness Musculoskeletal: No tenderness Integumentary: No rashes Neurological: Normal speech, Normal tone, Normal affect Lymphatics: No axilla or inguinal lymphadenopathy - Studies Medications List Reviewed: Yes Assessment And Plan - Current Problems (Diagnosis) (1) Upper GI bleed Onset Date: 05/24/18 Current Visit: Yes Status: Acute Plan: Patient with acute upper GI bleed with coffee-ground emesis and black tarry stool -H&H is stable at this time. -placed on IV Protonix for now -general surgery consulted. Recommendations appreciated at this time -GI unavailable at this time -general surgery planned to do EGD today. -Awaiting cardiac clearance (2) Hypertension Onset Date: 05/24/18 Current Visit: Yes Status: Chronic Plan: Stable at this time Qualifiers: Hypertension type: essential hypertension Qualified Code(s): I10 - Essential (primary) hypertension (3) Atrial fibrillation with slow ventricular response Current Visit: Yes Status: Acute Plan: Patient had atrial fibrillation with RVR while here in the hospital. -cardiology was consulted who started patient on Betapace. However Betapace has been on hold now due to bradycardia. -no anti coagulation for now due to recent history of GI bleeding. -Will follow up with cardiology regarding anti coagulation. (4) History of gastric ulcer Current Visit: Yes Status: Chronic Plan: For over 26 years has been taking Protonix. Currently on Protonix - Plan Pending Clinical Improvement. Planned for EGD today Discharge Plan: Home Plan to discharge in: 48 Hours - Code Status/Comfort Care Code Status Assessed: Yes Critical Care: No
[2018-05-24] MEDS: PANTOPRAZOLE 40 MG INJ IVP SCH (21:38)
[2018-05-25] MEDS: NA CHLORIDE 0.9% 1,000 ML IV SCH ×3 (02:36→16:36)
[2018-05-25 04:16] LABS: Absolute Lymphocytes (CBC) 1.9 K/uL (0.7-4.9); Absolute Monocytes 0.8 K/uL (0.1-1.3); Absolute Neutrophil 3.8 K/uL (1.8-8.0); Basophils % 0.6 % (0-1.3); Eosinophils % 5.2 % (0-4.4); Lymphocytes % 27.4 % (15.3-44.8); MPV 8.7 fL (7.6-11.3); RBC Red Blood Cell Count 2.99 M/uL (4.33-5.43)
[2018-05-25 04:32] LABS: ALT/SGPT 14 U/L (12-78); AST/SGOT 14 U/L (15-37); Albumin 2.8 g/dL (3.4-5.0); Alkaline Phosphatase 61 U/L (45-117); BUN Blood Urea Nitrogen 10 mg/dL (7-18); Bicarbonate 23 mmol/L (21-32); Bilirubin Total 0.6 mg/dL (0.2-1.0); Glucose Level 88 mg/dL (74-106); Phosphorus 2.6 mg/dL (2.5-4.9); Potassium 3.7 mmol/L (3.5-5.1); Protein, Total 5.4 g/dL (6.4-8.2); Sodium Level 142 mmol/L (136-145)
[2018-05-25] MEDS ORDERED: POTASSIUM CL SA 10 MEQ TAB PO ONE ×2 (05:39→09:00)
[2018-05-25] MEDS: TRAMADOL HCL 50 MG TAB PO PRN ×3 (08:08→21:26)
[2018-05-25] MEDS ORDERED: REGADENOSON 0.4 MG/5 ML SYR IV ONE (08:45)
[2018-05-25] MEDS: PANTOPRAZOLE 40 MG INJ IVP SCH ×2 (09:00→21:27)
[2018-05-25 10:03] VITALS: O2SAT 100
--- NOTE | 2018-05-25 11:25 | RAD REPORT ---
EXAM DESCRIPTION: NM - Rest Stress Cardiac Imaging - 05/25/2018 10:58 am CLINICAL HISTORY: Chest pain. COMPARISON: None. TECHNIQUE: The patient was administered approximately 10mCi of Tc 99m Sestamibi prior to resting SPE CT imaging of the heart. The patient was then administered approximately 30 mCi of Tc 99m Sestamibi f ollowing exercise or pharmacologic stress. Multiplanar SPECT images were reviewed. FINDINGS: Moderate area of diminished radiotracer uptake involves the inferior apical left ventricu lar myocardium on rest and stress sequences. The left ventricular ejection fraction equals 63% IMPRESSION: Moderate apparent fixed perfusion defect involving the inferior apical left ventricular myocardium may represent attenuation from the diaphragm. An infarct is another consideration There is no evidence of stress-induced ischemia
--- NOTE | 2018-05-25 12:22 | ECHO ---
HEIGHT: 5 ft 10 in WEIGHT: 168 lb 0 oz DATE OF STUDY: 05/25/[address]: Jocy Brown MD 2-DIMENSIONAL: YES M.MODE: YES DOPPLER: YES COLOR FLOW: YES TDS: NO PORTABLE: NO DEFINITY: NO BUBBLE STUDY: NO DIAGNOSIS: ATRIAL FIBRILLATION CARDIAC HISTORY: CATHERIZATION: NO SURGERY: NO PROSTHETIC VALVE: NO PACEMAKER: NO MEASUREMENTS (cm) DIASTOLIC (NORMALS) SYSTOLIC (NORMALS) IVSd 1.1 (0.6-1.2) LA Diam 4.2 (1.9-4.0) LVEF 59% LVIDd 4.8 (3.5-5.7) LVIDs 3.3 (2.0-3.5) %FS 31% LVPWd 1.2 (0.6-1.2) Ao Diam 3.2 (2.0-3.7) 2 DIMENSIONAL ASSESSMENT: RIGHT ATRIUM: NORMAL LEFT ATRIUM: DILATED RIGHT VENTRICLE: NORMAL LEFT VENTRICLE: NORMAL TRICUSPID VALVE: NORMAL MITRAL VALVE: NORMAL PULMONIC VALVE: NORMAL AORTIC VALVE: NORMAL PERICARDIAL EFFUSION: NONE AORTIC ROOT: NORMAL LEFT VENTRICULAR WALL MOTION: NORMAL DOPPLER/COLOR FLOW: MILD TRICUSPID REGURGITATION. COMMENTS: MILD TRICUSPID REGURGITATION.. NORMAL LEFT VENTRICULAR SIZE AND FUNCTION. NO WALL MOTION ABNORMALITY. MILD LEFT ATRIAL ENLARGEMENT. TECHNOLOGIST: Ilana TYLER
--- NOTE | 2018-05-25 12:28 | TREADPHA ---
DX: CHEST PAIN, ATRIAL FIBRILLATION Date of Study: 05/25/2018 Ht: 5 10 Wt: 168 lb 0 oz Consulting Physician: SHELTON MEDICATIONS: NORVASC, PROTONIX, LOTENSIN, ULTRAM, KLOR-CON HISTORY: 77 YEAR OLD MALE WITH ATRIAL FIBRILLATION. MEDICAL HISTORY OF GI HEMORRHAGE, ORTHOSTATIC HYPOTENSION, DEHYDRATION, HYPERTENSION AND ULCERS. NON SMOKER, OCCASIONAL DRINKER. PHYSICIAL EXAMINATION: RESTING B.P.: 152/90 RESTING H.R.: 54 RESTING EKG: ATRIAL FIBRILLATION, RIGHT BUNDLE BRANCH BLOCK. PROTOCOL: LEXISCAN EXERCISE TIME: 3:30 B.P. AT PEAK STRESS: 122/61 IMPRESSION: LEXISCAN INJECTED. CARDIOLITE INJECTED PER PROTOCOL. SEE NUCLEAR MEDICINE REPORT. PATIENT WAS IN ATRIAL FIBRILLATION PRIOR TO STRESS TEST. PATIENT CONTINUES TO BE IN ATRIAL FIBRILLATION THROUGHOUT PROCEDURE. NO SUPRA VENTRICULAR TACHYCARDIA. NO VENTRICULAR TACHYCARDIA. OCCASIONAL PREMATURE VENTRICULAR COMPLEXES NOTED THROUGHOUT PROCEDURE. PATIENT REPORTED NO CHEST PAIN OR TIGHTNESS DURING PROCEDURE.
--- NOTE | 2018-05-25 14:12 | P.PN ---
Subjective Date of Service: 05/25/18 Primary Care Provider: Dr ADAME Chief Complaint: GI bleed Patient seen and examined at bedside with RN. Chart reviewed. Case discussed with general surgery along with Cardiology. Overnight patient had heart rate dropped down to 28 again. Did not receive any Betapace overnight. atient remained asymptomatic overnight as well Review of Systems 10-point ROS is otherwise unremarkable Physical Examination - Vital Signs Temperature: 98.2 F Blood Pressure: 156/83 Pulse: 52 Respirations: 16 Pulse Ox (%): 100 - Physical Exam General: Alert, In no apparent distress HEENT: Atraumatic, PERRLA, EOMI Neck: Supple, JVD not distended Respiratory: Clear to auscultation bilaterally, Normal air movement Cardiovascular: Regular rate/rhythm, Normal S1 S2 Gastrointestinal: Normal bowel sounds, No tenderness Musculoskeletal: No tenderness Integumentary: No rashes Neurological: Normal speech, Normal tone, Normal affect Lymphatics: No axilla or inguinal lymphadenopathy - Studies Medications List Reviewed: Yes Assessment And Plan - Current Problems (Diagnosis) (1) Upper GI bleed Onset Date: 05/24/18 Current Visit: Yes Status: Acute Plan: Patient with acute upper GI bleed with coffee-ground emesis and black tarry stool -H&H is steady the declining. No active bleeding noted. -on Protonix b.i.d. at this time. -general surgery consulted. Recommendations appreciated at this time -GI unavailable at this time -status post EGD POD 1. -EGD consistent with gastritis and duodenitis. -Pathology and H. pylori culture pending (2) Atrial fibrillation with slow ventricular response Current Visit: Yes Status: Acute Plan: Patient had atrial fibrillation with RVR while here in the hospital. Now resolved. -cardiology was consulted who started patient on Betapace. -However Betapace discontinued 48 hr ago due to bradycardia. -another episode of bradycardia last night. -pending echocardiogram and stress test today. -no anti coagulation for now due to recent history of GI bleeding. -Will follow up with cardiology regarding bradycardia, echocardiogram and stress test (3) Hypertension Onset Date: 05/24/18 Current Visit: Yes Status: Chronic Plan: Stable at this time Qualifiers: Hypertension type: essential hypertension Qualified Code(s): I10 - Essential (primary) hypertension (4) History of gastric ulcer Current Visit: Yes Status: Chronic Plan: For over 26 years has been taking Protonix. Currently on Protonix - Plan Pending Clinical Improvement. Awaiting stress test and echocardiogram results at this time Discharge Plan: Home Plan to discharge in: 48 Hours - Code Status/Comfort Care Code Status Assessed: Yes Critical Care: No
[2018-05-25] MEDS: BENAZEPRIL 20 MG TAB PO SCH (15:18)
[2018-05-25] MEDS: AMLODIPINE 10 MG TAB PO SCH (15:18)
[2018-05-26] MEDS: NA CHLORIDE 0.9% 1,000 ML IV SCH (01:07)
[2018-05-26 04:40] LABS: BUN Blood Urea Nitrogen 7 mg/dL (7-18); Bicarbonate 25 mmol/L (21-32); Glucose Level 99 mg/dL (74-106); Potassium 3.8 mmol/L (3.5-5.1); Sodium Level 142 mmol/L (136-145)
[2018-05-26] MEDS ORDERED: POTASSIUM CL SA 10 MEQ TAB PO ONE (05:12)
[2018-05-26 08:48] VITALS: TEMP 97.4
[2018-05-26] MEDS: BENAZEPRIL 20 MG TAB PO SCH (09:12)
[2018-05-26] MEDS: AMLODIPINE 10 MG TAB PO SCH (09:13)
[2018-05-26] MEDS: PANTOPRAZOLE 40 MG INJ IVP SCH (09:14)
--- NOTE | 2018-05-26 10:54 | P.DS ---
Admission Date: 05/22/18 Discharge Date: 05/26/18 Primary Care Provider: Dr. Freeman Disposition: ROUTINE DISCHARGE Discharge Condition: GOOD Reason for Admission: GI bleed Consultations: Surgery-Dr. Chirinos Cardiology-Dr. Unger/Dr. Saucedo Procedures: CT scan: COMPARISON: none. TECHNIQUE: Computed axial tomography of the abdomen pelvis was obtained. 100 cc Isovue-300 was administered intravenously. Oral contrast was not requested which limits evaluation of bowel. All CT scans are performed using dose optimization technique as appropriate and may include automated exposure control or mA/KV adjustment according to patient size. FINDINGS: Several small gallstones are present. Gallbladder wall is not thickened. The liver, pancreas, adrenal and right kidney appear unremarkable. Splenic granulomata. A 10 millimeter intermediate density mass is present within the left kidney. There is no evidence of diverticulitis. Spondylolysis involves L5. Mild anterior subluxation of L5 on S1 The appendix is normal Wall of the distal stomach appears thickened IMPRESSION: Cholelithiasis without evidence of cholecystitis 10 millimeter left renal mass does not represent a simple cyst. It may represent a benign complex cyst or neoplasm. It is recommended that the patient have Add nonemergent renal ultrasound for further evaluation. Wall of the distal stomach appears thickened. This can be secondary to incomplete distention or pathology such as inflammation or mass Renal US: COMPARISON: May 22, 2018 cat scan FINDINGS: The right kidney measures 10 cm with a normal echotexture. The left kidney measures 10 cm with a normal echotexture. Hydronephrosis is not seen. No gross abnormality of the bladder noted IMPRESSION: The 10 millimeter mass within the left kidney seen on the CT scan on the same date is not visualized on this examination. It is recommended that the patient have an unenhanced CT scan of the kidneys. This can be compared with the CT scan performed today to determine if there is abnormal enhancement ECHO: EF-59% LEFT VENTRICULAR WALL MOTION: NORMAL DOPPLER/COLOR FLOW: MILD TRICUSPID REGURGITATION. COMMENTS: MILD TRICUSPID REGURGITATION.. NORMAL LEFT VENTRICULAR SIZE AND FUNCTION. NO WALL MOTION ABNORMALITY. MILD LEFT ATRIAL ENLARGEMENT. Cardiac Stress Test: COMPARISON: None. TECHNIQUE: The patient was administered approximately 10mCi of Tc 99m Sestamibi prior to resting SPECT imaging of the heart. The patient was then administered approximately 30 mCi of Tc 99m Sestamibi following exercise or pharmacologic stress. Multiplanar SPECT images were reviewed. FINDINGS: Moderate area of diminished radiotracer uptake involves the inferior apical left ventricular myocardium on rest and stress sequences. The left ventricular ejection fraction equals 63% IMPRESSION: Moderate apparent fixed perfusion defect involving the inferior apical left ventricular myocardium may represent attenuation from the diaphragm. An infarct is another consideration There is no evidence of stress-induced ischemia Endoscopy: No complications. LA class a esophagitis was found in gastroesophageal junction. Duodenitis was found in the bulb of the duodenum. Mild gastritis was found in the total stomach Medical Problem List: Upper GI bleed with Anemia Atrial fibrillation with bradycardia likely related to octreotide HTN History of gastric ulcer Brief History of Present Illness: 77-year-old male presented to the emergency room with coffee-ground emesis and epigastric pain. Patient was admitted for upper GI bleed. Patient with history of gastric ulcer. Hospital Course: Patient presented with coffee-ground emesis and epigastric pain. Patient was admitted for further evaluation for upper GI bleed. Patient anemic. Patient did not require any transfusion of blood. Patient was evaluated by surgery. Endoscopy was recommended. Patient was seen by Cardiology prior to endoscopy for cardiac clearance. Patient has atrial fibrillation. Patient also with bradycardia likely related to octreotide. This was discontinued. Patient ultimately had EGD. Class LA esophagitis noted at the gastroesophageal junction. Duodenitis was also found in the bulb of the duodenum and mild gastritis found in the total stomach. Recommendation was to continue with Protonix but increase to 40 mg twice daily. Recommend no further use of nonsteroidal anti-inflammatories. Recommendation is for the patient to follow up with surgery in 1-2 weeks to follow up this hospitalization. Patient will require colonoscopy in 6-8 weeks to further evaluate his anemia. Recommend to recheck lab-CBC in 1 week to monitor his progress. Pathology shows no H pylori gastritis. No malignancy noted. Patient with atrial fibrillation. Patient seen and evaluated by Cardiology. No chronic anti coagulation therapy is recommended at this time due to upper GI bleed. Patient stable with current medications for hypertension. Patient will continue with Norvasc/benazepril 10/20 mg once daily. Recommendation is for the patient follow up with cardiology in 1-2 weeks to follow up this hospitalization and to further address his condition. Vital Signs/Physical Exam: Temp Pulse Resp BP Pulse Ox 97.4 F 52 18 132/61 100 05/26/18 08:00 05/26/18 09:13 05/26/18 08:00 05/26/18 09:13 05/26/18 08:00 General: Alert, In no apparent distress, Oriented x3, Cooperative HEENT: Atraumatic, Mucous membr. moist/pink Neck: Supple Respiratory: Clear to auscultation bilaterally, Normal air movement Cardiovascular: Normal pulses, Regular rate/rhythm Gastrointestinal: Normal bowel sounds, Soft and benign, Non-distended, No tenderness, No masses, No rebound, No guarding Musculoskeletal: No erythema, No tenderness, No warmth Integumentary: No tenderness/swelling, No erythema, No warmth, No cyanosis Neurological: Normal speech, Normal strength at 5/5 x4 extr, Normal tone, Normal affect Laboratory Data at Discharge: WBC 6.8 K/uL (4.3-10.9) 05/25/18 03:56 Hgb 9.6 g/dL (13.6-17.9) L 05/25/18 03:56 Hct 28.0 % (39.6-49.0) L 05/25/18 03:56 Plt Count 179 K/uL (152-406) 05/25/18 03:56 PT 13.3 SECONDS (9.5-12.5) H 05/22/18 14:35 INR 1.13 05/22/18 14:35 APTT 24.0 SECONDS (24.3-36.9) L 05/22/18 14:35 Sodium 142 mmol/L (136-145) 05/26/18 03:54 Potassium 3.8 mmol/L (3.5-5.1) 05/26/18 03:54 BUN 7 mg/dL (7-18) 05/26/18 03:54 Creatinine 0.69 mg/dL (0.55-1.3) 05/26/18 03:54 Glucose 99 mg/dL (74-106) 05/26/18 03:54 Phosphorus 2.6 mg/dL (2.5-4.9) 05/25/18 03:56 Magnesium 2.0 mg/dL (1.8-2.4) 05/25/18 03:56 Total Bilirubin 0.6 mg/dL (0.2-1.0) 05/25/18 03:56 AST 14 U/L (15-37) L 05/25/18 03:56 ALT 14 U/L (12-78) 05/25/18 03:56 Alkaline Phosphatase 61 U/L (45-117) 05/25/18 03:56 Lipase 150 U/L (73-393) 05/22/18 12:30 Home Medications: Amlodipine Besylate/Benazepril [Amlodipine-Benazepril 10-20 mg] 10 mg PO DAILY 05/23/18 Pantoprazole [Protonix Tab] 40 mg PO BID #60 tab 05/26/18 New Medications: Pantoprazole [Protonix Tab] 40 mg PO BID #60 tab Patient Discharge Instructions: 1. Patient will need a follow up with his PCP in 1 week to follow this hospitalization. 2. Patient presented with coffee- ground emesis and epigastric pain. Patient was admitted for further evaluation for upper GI bleed. Patient anemic. Patient did not require any transfusion of blood. Patient was evaluated by surgery. Endoscopy was recommended. Patient was seen by Cardiology prior to endoscopy for cardiac clearance. Patient has atrial fibrillation. Patient also with bradycardia likely related to octreotide. This was discontinued. Patient ultimately had EGD. Class LA esophagitis noted at the gastroesophageal junction. Duodenitis was also found in the bulb of the duodenum and mild gastritis found in the total stomach. Recommendation was to continue with Protonix but increase to 40 mg twice daily. Recommend no further use of nonsteroidal anti-inflammatories. Recommendation is for the patient to follow up with surgery in 1-2 weeks to follow up this hospitalization. Patient will require colonoscopy in 6-8 weeks to further evaluate his anemia. Recommend to recheck lab-CBC in 1 week to monitor his progress. Pathology shows no H pylori gastritis. No malignancy noted. 3. Patient with atrial fibrillation. Patient seen and evaluated by Cardiology. No chronic anti coagulation therapy is recommended at this time due to upper GI bleed. Patient stable with current medications for hypertension. Patient will continue with Norvasc/benazepril 10/20 mg once daily. Recommendation is for the patient follow up with cardiology in 1-2 weeks to follow up this hospitalization and to further address his condition. Diet: AHA Activity: Ad alyson Time spent managing pt's care (in minutes): 55
[2018-05-26 12:10] VITALS: BP 129/71
--- NOTE | 2018-05-26 14:44 | PN ---
Mr. Ochoa seems to be doing well. He has AFib, has adequate rate control without any beta-blockers or digoxin. He is not anticoagulated, so I would recommend we do not initiate any anticoagulation u ntil he has been on high-dose Protonix for at least several weeks, then we should try to initiate it, hopefully would not bleed. He seems to have some peptic ulcer disease with gastritis. He has not h ad a colonoscopy yet, so hopefully we can do a colonoscopy sometime soon and see if he is a candidate for anticoagulation. KATRIN Voice ID: [id number] Report ID: [id number]
== END 2018-05-26 12:20 | disposition home or self-care (01) | DRG 382 ==
LOC: ER 10:39 → ERHOLD 15:06 → 4TH 17:45
PROVIDERS: ADMIT Family Medicine; ATTEND Family Medicine
PROC: 0DB78ZX Excision of Stomach, Pylorus, Via Natural or Artificial Opening Endoscopic, Diagnostic (ICD-10-PCS; 2018-05-24)
PROC: 0DB68ZX Excision of Stomach, Via Natural or Artificial Opening Endoscopic, Diagnostic (ICD-10-PCS; 2018-05-24)
PROC: 0DB48ZX Excision of Esophagogastric Junction, Via Natural or Artificial Opening Endoscopic, Diagnostic (ICD-10-PCS; 2018-05-24)
PROC: 0DB98ZX Excision of Duodenum, Via Natural or Artificial Opening Endoscopic, Diagnostic (ICD-10-PCS; principal; 2018-05-24 09:30)
DX: K22.11 Ulcer of esophagus with bleeding (principal); R00.1 Bradycardia, unspecified; T38.995A Adverse effect of other hormone antagonists, initial encounter; Y92.230 Patient room in hospital as the place of occurrence of the external cause; K29.80 Duodenitis without bleeding; I10 Essential (primary) hypertension; I48.91 Unspecified atrial fibrillation; D51.9 Vitamin B12 deficiency anemia, unspecified; K29.00 Acute gastritis without bleeding; K25.7 Chronic gastric ulcer without hemorrhage or perforation
CPT/HCPCS: 36415; 74177; 76770; 78452; 80048; 80053; 80076; 81003; 82533; 82607; 82746; 83605; 83690; 83735; 84100; 84439; 84443; 85014; 85018; 85025; 85610; 85730; 86850; 86900; 86901; 88305; 88312; 93005; 93017; 93306; 99285; A9500; C9113; J2001; J2354; J2405; J2704; J2785; J7030; Q9967

== ENCOUNTER → 2018-06-25 | Day surgery (SDC) | payer BC ==
[~2018-06-25] MED LIST: LIDOCAINE 1% MPF 2 ML AMPULE ONE; NA CHLORIDE 0.9% 0 ML ONE; PROPOFOL 200 MG/20 ML VIAL IV ONE; Ringers Lactate 1,000 ML IV ONE
--- NOTE | 2018-06-25 09:07 | ENDO RPT ---
[address], [address] COLONOSCOPY PROCEDURE REPORT EXAM DATE: 06/25/2018 PATIENT NAME: Asim Ochoa MR #: [id number] BIRTHDATE: 1940 ATTENDING: Michael Chirinos DR STATUS: outpatient PIPELINE SYSTEMS OPERATOR: Lisa Donaldson RN, Debby [facility], and Polo Peterson [place] [facility] INDICATIONS: The patient is a 78 yr old Male here for a colonoscopy due to colon cancer screening and anemia PROCEDURE PERFORMED: Screening Colonoscopy and Colonoscopy with biopsy - cold polypectomy MEDICATIONS: Per Anesthesia. ESTIMATED BLOOD LOSS: None CONSENT: The patient understands the risks and benefits of the procedure and understands that these risks include, but are not limited to: sedation, allergic reaction, infection, perforation and/or bleeding. Alternative means of evaluation and treatment include, among others: physical exam, x-rays, and/or surgical intervention. The patient elects to proceed with this endoscopic procedure. DESCRIPTION OF PROCEDURE: During intra-op preparation period all mechanical medical equipment was checked for proper function. Hand hygiene and appropriate measures for infection prevention was taken. Procedure, possible complications, alternatives including, but not limited to possibility of bleeding, perforation, tear, infection, sepsis, need for surgery, need for blood transfusion, were explained to the patient. After the risks, benefits and alternatives of the procedure were thoroughly explained, Informed consent was verified, confirmed and timeout was successfully executed by the treatment team. The patient was placed in the left lateral position. A digital rectal exam was performed and revealed external hemorrhoids and A digital rectal exam was performed and revealed internal hemorrhoids. After appropriate level of anesthesia, the scope was passed. The EC-[id number] ([id number]) endoscope was introduced through the anus and advanced to the cecum, which was identified by both the appendix and ileocecal valve. The quality of the prep was fair. The instrument was then slowly withdrawn as the colon was fully examined. Scope withdrawal time was 8 minutes. COLON FINDINGS: Two small smooth and polypoid shaped semi-pedunculated polyps with friable surfaces were found at the cecum and in the anal canal. A polypectomy was performed with a cold snare. The resection was complete, the polyp tissue was completely retrieved and sent to histology. Retroflexed views revealed no abnormalities. The scope was then completely withdrawn from the patient and the procedure terminated. ADVERSE EVENTS: There were no complications. IMPRESSIONS: Two small semi-pedunculated polyps were found at the cecum; polypectomy was performed with a cold snare RECOMMENDATIONS: 1. avoid NSAIDS for 2 weeks 2. await biopsy results 3. fiber rich diet 4. follow-up: office 2 week(s) 5. yearly hemoccult starting in 4 years 6. hemorrhoidal hygiene 7. increase dietary water RECALL: Return in 5 year(s) for Colonoscopy, pending biopsy results. Pending Biopsy Results Michael Chirinos DR eSigned: Michael Chirinos DR 06/25/2018 9:00 AM cc: CPT CODES: ICD9 CODES: PATIENT NAME: Asim Ochoa MR#: [id number]
[2018-06-25 09:11] VITALS: O2SAT 100
[2018-06-25 09:27] VITALS: BP 122/58; TEMP 97.9
== END ==
LOC: OR 07:21
PROVIDERS: ATTEND Surgery
PROC: 0DBQ8ZX Excision of Anus, Via Natural or Artificial Opening Endoscopic, Diagnostic (ICD-10-PCS; 2018-06-25)
PROC: 0DBH8ZX Excision of Cecum, Via Natural or Artificial Opening Endoscopic, Diagnostic (ICD-10-PCS; principal; 2018-06-25 08:30)
DX: Z12.11 Encounter for screening for malignant neoplasm of colon (principal); D12.0 Benign neoplasm of cecum; D12.9 Benign neoplasm of anus and anal canal; K64.8 Other hemorrhoids; K64.4 Residual hemorrhoidal skin tags; D64.9 Anemia, unspecified; I10 Essential (primary) hypertension; Z79.899 Other long term (current) drug therapy
CPT/HCPCS: 88305; J2001; J2704; J7030

== ENCOUNTER 2022-06-09 01:19 | Emergency (ER) | payer BC ==
[2022-06-09] MEDS ORDERED: LIDOCAINE 1% MPF 30 ML VIAL ONE (01:32)
[2022-06-09] MEDS ORDERED: TDAP (DIPHTH,PERTUSS(ACELL),TET VAC) 0.5 ML VIAL IMVAC ONE (02:13)
--- NOTE | 2022-06-09 03:27 | ER ---
Nurse's Notes [facility] Name: Asim Ochoa Age: 82 yrs Sex: Male : 1940 Arrival Date: 06/09/2022 Time: 01:24 Bed 12 Private MD: Diagnosis: Pain in right hip;Laceration to face Presentation: 06/09 01:26 Chief complaint: EMS states: Fell at home and hit head on corner of night stand. ke1 01:26 Method Of Arrival: EMS ke1 01:30 Care prior to arrival: Bleeding of injury controlled. Injury dressed. Mechanism of ke1 Injury: Fall from standing position. Trauma event details: Injury occurred in the [facility], Injury occurred: at home. Injury occurred: June 09, 2022 Injury occurred at: 00:30. 01:33 Risk Assessment: Do you want to hurt yourself or someone else? Patient reports no ke1 desire to harm self or others. Onset of symptoms was June 09, 2022 at 00:30. 01:33 Acuity: JEFF 3 ke1 01:45 Initial Sepsis Screen: Does the patient meet any 2 criteria? No. Patient's initial ke1 sepsis screen is negative. Does the patient have a suspected source of infection? No. Patient's initial sepsis screen is negative. 02:05 Coronavirus screen: Vaccine status: Patient reports receiving the 2nd dose of the covid ke1 vaccine. Ebola Screen: No symptoms or risks identified at this time. Triage Assessment: 06/08 01:30 General: Appears in no apparent distress. Behavior is appropriate for age. Pain: ke1 Complains of pain in R temporal Pain currently is 4 out of 10 on a pain scale. level that patient reports is acceptable is 5 out of 10 on a pain scale. Neuro: Light Agitation-Sedation Scale (RASS): 0 - Alert and Calm Level of Consciousness is awake, alert, Oriented to person, place, time, situation, have been forgetful lately per family. Trauma Activation: Physician: ED Physician; Name: Megha; Notified At: 01:30; Arrived At: Physician: General Surgeon; Name: ; Notified At: 01:30; Arrived At: Physician: Radiology; Name: ; Notified At: 01:30; Arrived At: Physician: Respiratory; Name: ; Notified At: 01:30; Arrived At: Physician: Lab; Name: ; Notified At: 01:30; Arrived At: Historical: - Allergies: 06/09 01:33 No Known Allergies; ke1 - PMHx: 01:33 Hypertension; Ulcers; ke1 - Immunization history:: Adult Immunizations Client reports receiving the 2nd dose of the Covid vaccine. - Social history:: Smoking status: Patient denies any tobacco usage or history of. - Immunization history: Last tetanus immunization: > 10 years ago. - Family history:: not pertinent. Screenin:59 Abuse screen: Denies threats or abuse. Tuberculosis screening: No symptoms or risk ke1 factors identified. 02:05 [facility] ED Fall Risk Assessment (Adult) History of falling in the last 3 months, ke1 including since admission Yes- physiologic fall (2 pts) Confusion or Disorientation No (0 pts) Intoxicated or Sedated No (0 pts) Impaired Gait Yes (1 pt) Mobility Assist Device Used Yes (1 pt) Altered Elimination No (0 pt) Score/Fall Risk Level 3 or more points = High Risk Oriented to surroundings, Maintained a safe environment, Educated pt \T\ family on fall prevention, incl call for assistance when getting out of bed, Assessed \T\ reinforced patient's understanding of fall precautions, Provided non-skid footwear, Hourly rounding (assess needs \T\ fall precautionary measures) done, Used ambulatory aids as needed (educated on \T\ assisted with). Nutritional screening: No deficits noted. Primary Survey: 01:30 NO uncontrolled hemorrhage observed. A: The client is alert. Airway: patent, Oral ke1 cavity: clear, gag reflex present. Breathing/Chest: Respiratory effort: spontaneous, Breath sounds: clear, Respiratory pattern: regular, Chest inspection: symmetrical rise and fall of the chest. Circulation: Hemorrhage: No external hemorrhage noted. Pulses: palpable right radial artery and left radial artery. Skin color: pink, Skin temperature: warm, Cardiac rhythm: sinus rhythm Heart tones present. Disability Pupils are equal, round, reactive to light and accommodation. Exposure/Environment: All clothing and personal items were removed. Forensic evidence collection is not deemed to be indicated at this time. Items placed in patient belonging bag. There is no evidence of uncontrolled external bleeding. Obvious injury(ies) are noted at this time: R temporal laceration + skin tear R arm. 02:04 Reassessment Alertness and Airway: Airway Patent Breathing: Respiratory effort ke1 Spontaneous Breath sounds Clear Respiratory pattern Regular Chest inspection Symmetrical Circulation: Heart rhythm Sinus rhythm Heart tones Present Pulses Palpable Color [place] Temperature Warm Disability: Pupils Pupils are equal, round, reactive to light and accomodation. Secondary Survey: 01:58 HEENT: Head Other R temporal laceration Face No injury/deformity Eyes: No injury or ke1 deformity noted. Ears: clear bilaterally. Nose: clear to bilateral nares. Throat: No injury or deformity noted. with gag reflex present. Gastrointestinal: Abdomen is flat, Bowel sounds present in all quadrants. : No deficits noted. Musculoskeletal: Capillary refill < 3 seconds, Range of motion: intact in all extremities, Swelling R temporal. Assessment: 01:32 Reassessment: patient in CT scan. ke1 02:17 Reassessment: Patient and/or family updated on plan of care and expected duration. Pain ke1 level reassessed. Patient is alert, oriented x 3, equal unlabored respirations, skin warm/dry/pink. Patient denies pain at this time. Patient states feeling better. Patient states symptoms have improved. 03:43 Reassessment: Patient denies pain at this time. Patient states feeling better. ke1 Vital Signs: 01:33 Weight 65.77 kg; Height 5 ft. 8 in. (172.72 cm); ke1 01:45 BP 192 / 116; Pulse 73; Resp 17; Temp 97.8; Pulse Ox 100% on R/A; ke1 03:43 BP 175 / 82; Pulse 70; Resp 18; Temp 97.8; Pulse Ox 100% ; Pain 0/10; ke1 01:33 Body Mass Index 22.05 (65.77 kg, 172.72 cm) ke1 Oliva Coma Score: 01:30 Eye Response: spontaneous(4). Verbal Response: oriented(5). Motor Response: obeys ke1 commands(6). Total: 15. Trauma Score (Adult): 01:30 Eye Response: spontaneous(1); Verbal Response: oriented(1); Motor Response: obeys ke1 commands(2); Systolic BP: > 89 mm Hg(4); Respiratory Rate: 10 to 29 per min(4); Biscoe Score: 15; Trauma Score: 12 ED Course: 01:24 Patient arrived in ED. ke1 01:24 Ruel Cleveland MD is Attending Physician. rt 01:26 Sonal Lee RN is Primary Nurse. ke1 01:33 Triage completed. ke1 01:36 CT Head C Spine In Process Unspecified. EDMS 01:59 Bed in low position. Call light in reach. Side rails up X 1. Side rails up X2. ke1 01:59 Assist provider with laceration repair on R temporal using sutures. Set up tray. ke1 Performed by Ruel Cleveland MD Patient tolerated well. Patient maintains SpO2 saturation greater than 95% on room air. Thermoregulation: warm blanket given to patient. 02:04 Arm band placed on left wrist. ke1 03:10 Pelvis XRAY In Process Unspecified. EDMS 03:10 Hip Right 2 View XRAY In Process Unspecified. EDMS 03:44 Patient did not have IV access during this emergency room visit. ke1 Administered Medications: 01:50 Drug: Lidocaine (2 %) 5 mg {Note: by provider.} Route: Infiltration; ke1 02:14 Drug: Tetanus-Diphtheria Toxoid Adult 0.5 ml {Server Programmer: [employer] Exp: ke1 11/29/2022. Lot #: [id number]. } Route: IM; Site: left deltoid; 03:44 Follow up: Response: No adverse reaction ke1 Medication: 02:17 Vaccine Information Statement (VIS) provided today. Questions and/or concerns ke1 addressed. VIS edition date: June 09, 2022. Outcome: 03:27 Discharge ordered by . rt 03:44 Discharged to home with family. ke1 03:44 Condition: good 03:44 Discharge instructions given to patient, family. 03:44 Patient left the ED. ke1 Signatures: Dispatcher [employer] Sonal Michelle RN RN ke1 Ruel Cleveland MD MD rt Corrections: (The following items were deleted from the chart) 01:56 01:30 BP 192 / 116; Pulse 73bpm; Resp 17bpm; Pulse Ox 100% RA; Temp 97.8F; ke1 ke1
--- NOTE | 2022-06-09 03:27 | EDPHYS ---
Physician Documentation [facility] Name: Asim Ochoa Age: 82 yrs Sex: Male : 1940 Arrival Date: 06/09/2022 Time: 01:24 Bed 12 Private MD: ED Physician Ruel Cleveland HPI: 06/09 03:04 This 82 yrs old Male presents to ER via EMS with complaints of Head injury. rt 03:04 The patient or guardian reports a laceration, 2 cm(s), clean, Presents to the ED with rt mechanical fall. Patient reportedly was getting out of bed, when he lost his balance and hit the side of his right sabianist onto the corner of a bedside table. There is no reported loss of consciousness. Patient reports a mild pain, nonradiating, aching nature. Denies other acute complaints at this time. Symptoms are mild in severity, no other aggravating alleviating factors. . Historical: - Allergies: 01:33 No Known Allergies; ke1 - PMHx: 01:33 Hypertension; Ulcers; ke1 - Immunization history:: Adult Immunizations Client reports receiving the 2nd dose of the Covid vaccine. - Social history:: Smoking status: Patient denies any tobacco usage or history of. - Immunization history: Last tetanus immunization: > 10 years ago. - Family history:: not pertinent. ROS: 03:04 Constitutional: Negative for fever, chills, and weight loss, Eyes: Negative for injury, rt pain, redness, and discharge, Cardiovascular: Negative for chest pain, palpitations, and edema, Respiratory: Negative for shortness of breath, cough, wheezing, and pleuritic chest pain, Abdomen/GI: Negative for abdominal pain, nausea, vomiting, diarrhea, and constipation, Skin: Negative for injury, rash, and discoloration, Neuro: Negative for headache, weakness, numbness, tingling, and seizure, Psych: Negative for depression, anxiety, suicide ideation, homicidal ideation, and hallucinations. Exam: 03:04 Constitutional: This is a well developed, well nourished patient who is awake, alert, rt and in no acute distress. Eyes: Pupils equal round and reactive to light, extra-ocular motions intact. Lids and lashes normal. Conjunctiva and sclera are non-icteric and not injected. Cornea within normal limits. Periorbital areas with no swelling, redness, or edema. ENT: Nares patent. No nasal discharge, no septal abnormalities noted. Tympanic membranes are normal and external auditory canals are clear. Oropharynx with no redness, swelling, or masses, exudates, or evidence of obstruction, uvula midline. Mucous membranes moist. Chest/axilla: Normal chest wall appearance and motion. Nontender with no deformity. No lesions are appreciated. Cardiovascular: Regular rate and rhythm with a normal S1 and S2. No gallops, murmurs, or rubs. Normal PMI, no JVD. No pulse deficits. Respiratory: Lungs have equal breath sounds bilaterally, clear to auscultation and percussion. No rales, rhonchi or wheezes noted. No increased work of breathing, no retractions or nasal flaring. Abdomen/GI: Soft, non-tender, with normal bowel sounds. No distension or tympany. No guarding or rebound. No evidence of tenderness throughout. Neuro: Awake and alert, GCS 15, oriented to person, place, time, and situation. Cranial nerves II-XII grossly intact. Motor strength 5/5 in all extremities. Sensory grossly intact. Cerebellar exam normal. Normal gait. 03:04 Head/face: Centimeter laceration with mild amount of arterial bleeding from the right sabianist. Mild swelling at that region, no deformities noted.. 03:04 Neck: No posterior cervical midline tenderness. 03:04 Musculoskeletal/extremity: Skin tear to the right elbow. Vital Signs: 01:33 Weight 65.77 kg; Height 5 ft. 8 in. (172.72 cm); ke1 01:45 BP 192 / 116; Pulse 73; Resp 17; Temp 97.8; Pulse Ox 100% on R/A; ke1 03:43 BP 175 / 82; Pulse 70; Resp 18; Temp 97.8; Pulse Ox 100% ; Pain 0/10; ke1 01:33 Body Mass Index 22.05 (65.77 kg, 172.72 cm) ke1 Oliva Coma Score: 01:30 Eye Response: spontaneous(4). Verbal Response: oriented(5). Motor Response: obeys ke1 commands(6). Total: 15. Trauma Score (Adult): 01:30 Eye Response: spontaneous(1); Verbal Response: oriented(1); Motor Response: obeys ke1 commands(2); Systolic BP: > 89 mm Hg(4); Respiratory Rate: 10 to 29 per min(4); Oliva Score: 15; Trauma Score: 12 Laceration: 03:04 Wound Repair of 2cm ( 0.8in ) subcutaneous laceration to right sabianist. Linear shaped.. rt Arterial bleeding noted.. Distal neuro/vascular/tendon intact. Anesthesia: Wound infiltrated with 2 mls of 1% lidocaine. Wound prep: Copious irrigation. Skin closed with 3 3-0 Prolene using interrupted sutures and sterile technique. Dressed with 4x4's. Patient tolerated well. MDM: 01:27 Patient medically screened. rt 03:28 Differential diagnosis: Contusion of Hematoma on Laceration of Intracranial bleed- rt Concussion cerebral contusion. Data reviewed: vital signs, nurses notes, radiologic studies. Independent interpretation of the following test(s) in the Emergency Department CT Scan: My interpretation is No head bleed identified. Test considered but Not performed: EKG: Patient reports clear mechanical fall, no syncopal event. Labs: Patient denies any syncopal events, is clearly mechanical fall. Historians other than the Patient: Daughter/Son: provided history of watchman procedure, states the patient is off of blood thinners.. Counseling: I had a detailed discussion with the patient and/or guardian regarding: the need for outpatient follow up, to return to the emergency department if symptoms worsen or persist or if there are any questions or concerns that arise at home. 06/09 01:25 Order name: CT Head C Spine rt 06/09 02:26 Order name: Pelvis XRAY rt 06/09 02:26 Order name: Hip Right 2 View XRAY rt Administered Medications: 01:50 Drug: Lidocaine (2 %) 5 mg {Note: by provider.} Route: Infiltration; ke1 02:14 Drug: Tetanus-Diphtheria Toxoid Adult 0.5 ml {Lead Technical Architect: [employer] ([employer]). Exp: ke11/29/2022. Lot #: [id number]. } Route: IM; Site: left deltoid; 03:44 Follow up: Response: No adverse reaction ke1 Disposition Summary: 06/09/22 03:27 Discharge Ordered Location: Home rt Problem: new rt Symptoms: have improved rt Condition: Stable rt Diagnosis - Pain in right hip rt - Laceration to face rt Followup: rt - With: Private Physician - When: 10 - 14 days - Reason: Staple/Suture removal Discharge Instructions: - Discharge Summary Sheet rt - Facial Laceration rt Forms: - Medication Reconciliation Form rt - Thank You Letter rt - Antibiotic Education rt - Prescription Opioid Use rt Signatures: Dispatcher [employer] Sonal Michelle RN RN ke1 Ruel Cleveland MD MD rt Corrections: (The following items were deleted from the chart) 03:27 03:27 Facial Laceration/ Laceration without foreign body of cheek and temporomandibular rt area rt
[2022-06-09 03:49] VITALS: TEMP 97.8; O2SAT 100
[2022-06-09 03:50] VITALS: BP 175/82
--- NOTE | 2022-06-09 17:18 | RAD REPORT ---
EXAM DESCRIPTION: EXAM DESCRIPTION: Head C Spine Mpr Wo Con 06/09/2022 1:44 AM SPANISH INTERPRETER/TRANSLATOR CLINICAL HISTORY: 82 years, Male, trauma COMPARISON: None. FINDINGS: Multiple transaxial tomograms of the brain were obtained from the base of the skull to the vertex without contrast. 2-D multiplanar reformats and the coronal and sagittal plane were performed and reviewed. Multiple axial CT images through the cervical spine were obtained at 2 mm slice thickness at 2 mm int erval reconstruction. In addition 2-D multiplanar reformats and the sagittal coronal plane were perfo rmed and reviewed. This exam was performed according to our departmental dose-optimization protocol, which includes auto mated exposure control, adjustment of the mA and/or kV according to patient size and/or use of iterat pan reconstruction technique. CT head: Brain parenchyma demonstrate mild prominence of the sulci and gyri are corresponding to mild cerebral and cerebellar atrophy. There is minimal periventricular white matter changes of microvascu lar ischemia. There is no midline shift and/or mass effect. There is no evidence for acute intracrani al hemorrhage. Lateral ventricles and cisterns displace normal appearance. No intra or extra axia l fluid collections were seen. The calvarium is intact with no evidence for fracture. The visualized portions of the paranasal sinuses and orbits demonstrate to be clear. There is minimal soft tissue th ickening subcutaneous tissue/skin right temporal area perhaps corresponding to site of injury/contusi on. CT C-spine: The alignment, vertebral body heights, and disc spaces are normal. There is no evidence of fracture or subluxation. There is degenerative disc disease with decreased intervertebral disc he ight, minimal anterior spondylosis and minimal posterior osteophyte complex at C3-C6. The spinal daily l demonstrate no evidence for significant stenosis. Neural foramina demonstrate to be unremarkable. T he uncovertebral joints demonstrate to be normal. There is no prevertebral soft tissue swelling. Ther e are carotid artery calcifications. Visualized lung apices demonstrate small bilateral pleural effus ions, slightly greater right than left Sagittal coronal reformatted images demonstrate no subluxation or bony abnormalities. IMPRESSION: No evidence for acute intracranial hemorrhage. Mild brain atrophy with minimal periventricular white matter changes of microvascular ischemia. Minimal soft tissue thickening subcutaneous tissue/skin right temporal area perhaps corresponding to site of injury/contusion. No evidence for acute fracture or subluxation of the cervical spine. Degenerative disc disease at C3-C6. Small bilateral pleural effusions, slightly greater right than left. Electronically signed by: Fili Johnson MD 06/09/2022 1:49 AM SPANISH INTERPRETER/TRANSLATOR Due to temporary technical issues with the PACS/Fluency reporting system, reports are being signed by the in house radiologists without review as a courtesy to insure prompt reporting. The interpreting radiologist is fully responsible for the content of the report
--- NOTE | 2022-06-09 18:35 | RAD REPORT ---
EXAM DESCRIPTION: Pelvis (accession [id number]), Hip Right 2 View (accession [id number]) 2022 3:14 AM TRANSFORMER ASSEMBLY SUPERVISOR CLINICAL HISTORY: 82 years, Male, PAIN COMPARISON: None FINDINGS: 3 views of the hip (frontal view of the pelvis, frontal view of the left hip and frogleg v iew of the left hip) were obtained. The pelvic brim is intact. No areas of acute bony injuries were d emonstrated. No gross soft tissue abnormality is identified. There are no gross intraosseous lesi ons. No periosteal reaction were seen. There are severe degenerative changes/osteoarthritis withi n the right hip joint with bone to bone apposition, deformity of the right femoral head, subchondral cysts, increased sclerosis and spur formations. Less pronounced findings are identified within the le ft hip joint. IMPRESSION: No acute bony injuries were demonstrated. 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 Electronically signed by: Fili Johnson MD 06/09/2022 3:16 AM TRANSFORMER ASSEMBLY SUPERVISOR Due to temporary technical issues with the PACS/Fluency reporting system, reports are being signed by the in house radiologists without review as a courtesy to insure prompt reporting. The interpreting radiologist is fully responsible for the content of the report
--- NOTE | 2022-06-09 18:37 | RAD REPORT ---
EXAM DESCRIPTION: Pelvis (accession [id number]), Hip Right 2 View (accession [id number]) 2022 3:14 AM MILKING MACHINE OPERATOR CLINICAL HISTORY: 82 years, Male, PAIN COMPARISON: None FINDINGS: 3 views of the hip (frontal view of the pelvis, frontal view of the left hip and frogleg v iew of the left hip) were obtained. The pelvic brim is intact. No areas of acute bony injuries were d emonstrated. No gross soft tissue abnormality is identified. There are no gross intraosseous lesi ons. No periosteal reaction were seen. There are severe degenerative changes/osteoarthritis withi n the right hip joint with bone to bone apposition, deformity of the right femoral head, subchondral cysts, increased sclerosis and spur formations. Less pronounced findings are identified within the le ft hip joint. IMPRESSION: No acute bony injuries were demonstrated. 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 Electronically signed by: Fili Johnson MD 06/09/2022 3:16 AM MILKING MACHINE OPERATOR Due to temporary technical issues with the PACS/Fluency reporting system, reports are being signed by the in house radiologists without review as a courtesy to insure prompt reporting. The interpreting radiologist is fully responsible for the content of the report
== END 2022-06-09 03:44 | disposition home or self-care (01) ==
LOC: ER 01:19
PROC: 0HQ1XZZ Repair Face Skin, External Approach (ICD-10-PCS; principal; 2022-06-09)
DX: S01.81XA Laceration without foreign body of other part of head, initial encounter (principal); M25.551 Pain in right hip; I10 Essential (primary) hypertension
CPT/HCPCS: 70450; 72125; 72170; 73502; 12013; J2001; 90471; 99284

== ENCOUNTER 2022-07-24 08:44 | Day surgery (SDC) | payer BC ==
[2022-07-24 09:07] LABS: Hematocrit 29.1 % (39.6-49.0); Lymphocytes % 24.8 % (15.3-44.8); MCV 94.7 fL (80-100); MPV 7.3 fL (7.6-11.3); Protime INR 0.95; RBC Red Blood Cell Count 3.07 M/uL (4.33-5.43)
[2022-07-24 09:18] LABS: Potassium 4.9 mmol/L (3.5-5.1)
[2022-07-24] MEDS ORDERED: Ringers Lactate 1,000 ML IV ONE (09:29)
[2022-07-24] MEDS ORDERED: CEFAZOLIN SODIUM 1 GM/VIAL ONE (09:29)
[2022-07-24] MEDS ORDERED: propofoL 200 MG/20 ML VIAL IV ONE (12:01)
[2022-07-24] MEDS ORDERED: LIDOCAINE 2% MPF 5 ML VIAL ONE (12:01)
[2022-07-24] MEDS ORDERED: FENTANYL CITR 100 MCG/2 ML ONE (12:01)
[2022-07-24] MEDS ORDERED: BUPIVACAINE 0.25% PF 10 ML VIAL ONE (12:07)
[2022-07-24] MEDS ORDERED: LIDOCAINE 1% W/EPI 1:100,000 10 ML VIAL ONE (12:32)
--- NOTE | 2022-07-24 12:50 | P.OP ---
Preoperative diagnosis: RIGHT temporal hematoma Postoperative diagnosis: RIGHT temporal hematoma Primary procedure: Drainage of RIGHT temporal hematoma Secondary procedure: Ligation of RIGHT temporal artery Anesthesia: GETA + Local Estimated blood loss: <10cc Specimen: Debridement Tissue, hematoma Findings: Traumatic avulsion of Temporal artery Complications: None Transferred to: Recovery Room Condition: Good
[2022-07-24 14:47] VITALS: TEMP 97.4; O2SAT 100
[2022-07-24 14:49] VITALS: BP 150/65
--- NOTE | 2022-07-24 15:50 | OP ---
Date of Procedure: 07/24/2022 Surgeon: Michael Chirinos MD, Brief History Of Present Illness: The patient is an 82-year-old man, who sustained a fall with a tra umatic hematoma of his right alevism in end of May of this year. He continued to notice that the hematoma continued to get larger and larger and larger. He has had skin breakdown over the alevism ar ea. He came to my office yesterday with the obvious traumatic scalp injury with concern for arterial bleed with skin necrosis over the top and extravasation of hematoma. Preoperative Diagnosis: Right temporal hematoma. Postoperative Diagnosis: Right temporal hematoma. Procedures Performed: 1.Drainage of right alevism hematoma. 2.Ligation of avulsed right temporal artery. Anesthesia: General endotracheal plus local. Estimated Blood Loss: Less than 10 cc. Specimen: Debridement tissue and hematoma. Findings: There was a traumatic avulsion injury to the temporal artery and significant inflammatory change with hematoma in the area. There was an obvious arterial spurting sidewall injury of the temp oral artery. Complications: None. Disposition: The patient was transferred to the recovery room in good condition. Procedure In Detail: After informed consent was obtained, the patient was brought to the operating r oom, prepped and draped in the usual sterile fashion after adequate anesthesia was achieved. I made a curvilinear incision overlying this large approximately 2.5 to 3 cm hematoma of the right temporal area down to subcutaneous tissues. I then removed an evacuated the hematoma off the anterior surface of the temporal artery and the temporal artery had active bleeding with any manipulation of this hem atoma prior to his movement. Spurting sidewall injury to the temporal artery was appreciated. I obt ained both proximal and distal control. I used a 3-0 Vicryl suture to suture ligate the proximal and distal aspect of the temporal artery. I irrigated the area copiously and achieved hemostasis at the skin level with electrocautery. At this point, the area was injected with 1% lidocaine with epineph rine. The area was copiously irrigated once again and closed with interrupted 3-0 nylon sutures and a sterile dressing placed over top. The patient tolerated the procedure well without evidence of com plication and transferred to PACU in good condition. All counts were correct at the end of the case. DEVIKA/RODNEY Voice ID: [id number] Report ID: [id number]
--- NOTE | 2022-07-24 16:20 | EKG ---
Test Date: 2022-07-24 Test Time: 08:32:56 Radio Division Officer: JONATHAN MEASUREMENT RESULTS: Intervals: Rate: 75 MO: QRSD: 152 QT: 432 QTc: 482 Salters: P: MO: QRS: -52 T: 68 INTERPRETIVE STATEMENTS: Atrial fibrillation Right bundle branch block Left anterior fascicular block Bifascicular block Septal infarct, age undetermined Abnormal ECG Compared to ECG 05/24/2018 07:36:40 Left anterior fascicular block now present Bifascicular block now present Left-axis deviation no longer present Myocardial infarct finding still present Electronically Signed On 07-24-22 16:19:11 RUBBER TUBING BACKER by Richard Serna
== END 2022-07-24 14:34 | disposition home or self-care (01) ==
LOC: OR 08:44
PROVIDERS: ATTEND Surgery
PROC: 03LS0ZZ Occlusion of Right Temporal Artery, Open Approach (ICD-10-PCS; 2022-07-24)
PROC: 0J900ZX Drainage of Scalp Subcutaneous Tissue and Fascia, Open Approach, Diagnostic (ICD-10-PCS; principal; 2022-07-24 13:45)
DX: S00.03XD Contusion of scalp, subsequent encounter (principal)
CPT/HCPCS: 93005; 85025; 80048; 36415; 85610; 88304; 85730; 10140; 37609; J2704; J2001; J3010; J7120; J0690

== ENCOUNTER 2022-09-08 23:00 | Inpatient (IN) | payer BC ==
[2022-09-09] MEDS ORDERED: FUROSEMIDE 40 MG/4 ML VIAL ONE (00:22)
--- NOTE | 2022-09-09 00:25 | ER ---
Nurse's Notes [facility] Name: Asim Ochoa Age: 82 yrs Sex: Male : 1940 Arrival Date: 09/08/2022 Time: 23:00 Bed 6 Private MD: Diagnosis: Peripheral edema -bilaterally;Cellulitis of left lower limb;Cellulitis of right lower limb Presentation: 09/08 23:25 Chief complaint: Patient states: "He's been swelling in his legs and feet, now it looks vc1 like it is up to his waist.". Coronavirus screen: Vaccine status: Patient reports receiving the 2nd dose of the covid vaccine. [employer] At this time, the client does not indicate any symptoms associated with coronavirus-19. Ebola Screen: Patient negative for fever greater than or equal to 101.5 degrees Fahrenheit, and additional compatible Ebola Virus Disease symptoms Patient denies exposure to infectious person. Patient denies travel to an Ebola-affected area in the 21 days before illness onset. No symptoms or risks identified at this time. Initial Sepsis Screen: Does the patient meet any 2 criteria? No. Patient's initial sepsis screen is negative. Does the patient have a suspected source of infection? No. Patient's initial sepsis screen is negative. Risk Assessment: Do you want to hurt yourself or someone else? Patient reports no desire to harm self or others. Onset of symptoms is unknown. 23:25 Method Of Arrival: Wheelchair vc1 23:25 Acuity: JEFF 3 vc1 Triage Assessment: 23:30 General: Appears in no apparent distress. uncomfortable, Behavior is calm, cooperative, vc1 appropriate for age. Pain: Denies pain. EENT: No deficits noted. No signs and/or symptoms were reported regarding the EENT system. Neuro: Level of Consciousness is awake, alert, obeys commands, Oriented to person, place, time, situation, Appropriate for age. Cardiovascular: Patient's skin is warm and dry. Edema is 4+ to left ankle, left foot, right ankle and right foot pitting to left ankle, left foot, right ankle and right foot. Historical: - Allergies: 23:28 No Known Allergies; vc1 - PMHx: 23:28 Hypertension; Ulcers; Atrial fibrillation; vc1 - PSHx: 23:28 Watchman; vc1 - Immunization history:: Client reports receiving the 2nd dose of the Covid vaccine. - Social history:: Smoking status: Patient denies any tobacco usage or history of. Screenin:29 Abuse screen: Denies threats or abuse. Nutritional screening: No deficits noted. vc1 Tuberculosis screening: No symptoms or risk factors identified. 09/09 00:04 [facility] ED Fall Risk Assessment (Adult) History of falling in the last 3 months, kl including since admission No falls in past 3 months (0 pts) Confusion or Disorientation No (0 pts) Intoxicated or Sedated No (0 pts) Impaired Gait Yes (1 pt) Mobility Assist Device Used Yes (1 pt) Altered Elimination No (0 pt) Score/Fall Risk Level 0 - 2 = Low Risk Oriented to surroundings, Maintained a safe environment, Used ambulatory aids as needed (educated on \\T\\ assisted with). Assessment: 00:02 General: Appears in no apparent distress. comfortable, well groomed, well developed, kl Behavior is calm, cooperative. Pain: Denies pain. Neuro: No deficits noted. Cardiovascular: Denies chest pain, Heart tones S1 S2 Capillary refill < 3 seconds Rhythm is sinus rhythm. Respiratory: No deficits noted. Airway is patent Trachea midline Respiratory effort is even, unlabored, Respiratory pattern is regular, symmetrical. GI: No deficits noted. No signs and/or symptoms were reported involving the gastrointestinal system. : No deficits noted. No signs and/or symptoms were reported regarding the genitourinary system. EENT: No deficits noted. No signs and/or symptoms were reported regarding the EENT system. Derm: Skin temperature is warm edema noted to bilateral lower extremities thighs to ankles Wound noted right foot and right ankle and left foot and left ankle. Vital Signs: 09/08 23:25 BP 183 / 87; Pulse 61; Resp 14; Temp 98; Pulse Ox 100% ; Weight 68.04 kg; Height 5 ft. vc1 8 in. ; 09/09 01:27 BP 186 / 86; Pulse 63; Resp 17; Pulse Ox 100% on R/A; ll3 02:42 BP 196 / 98; Pulse 71; Resp 16; Pulse Ox 100% on R/A; ll3 03:02 BP 175 / 103; Pulse 66; Resp 20; Pulse Ox 99% on R/A; ll3 09/08 23:25 Body Mass Index 22.81 (68.04 kg, 172.72 cm) vc1 ED Course: 09/08 23:05 Patient arrived in ED. ag3 23:28 Triage completed. vc1 23:29 Arm band placed on right wrist. vc1 23:48 XRAY Chest (1 view) In Process Unspecified. EDMS 23:51 Akhil Xie MD is Attending Physician. kdr 09/09 00:02 No provider procedures requiring assistance completed. Inserted saline lock: 20 gauge kl in right antecubital area, using aseptic technique. Blood collected. 00:15 Basic Metabolic Panel Sent. kl 00:15 CBC with Diff Sent. kl 00:15 Magnesium Sent. kl 00:15 NT PRO-BNP Sent. kl 00:15 PT-INR Sent. kl 00:15 Troponin HS Sent. kl 00:24 Cachorro Santos MD is Hospitalizing Provider. kdr 01:01 US Extremity Venous W Compression Ashish In Process Unspecified. EDMS 01:17 Procalcitonin Sent. kl 01:29 Patient has correct armband on for positive identification. Bed in low position. Call ll3 light in reach. Side rails up X 1. Adult w/ patient. 03:03 Patient admitted, IV remains in place. ll3 Administered Medications: 00:19 Drug: Furosemide IVP 40 mg Route: IVP; Site: right antecubital; kl 02:38 Follow up: Response: No adverse reaction ll3 01:02 Drug: ceFAZolin IVPB 1 grams Route: IVPB; Site: right antecubital; ll3 01:30 Follow up: IV Status: Completed infusion; IV Intake: 100ml kl 02:37 Drug: carvedilol PO 6.25 mg Route: PO; ll3 03:02 Follow up: BP 175 / 103; Pulse 66 bpm; Resp 20 bpm; Pulse Ox 99% RA; Response: No ll3 adverse reaction; Blood pressure is lowered 02:37 Drug: Furosemide IVP 20 mg Route: IVP; Site: right antecubital; ll3 03:03 Follow up: Response: No adverse reaction ll3 Medication: 02:42 VIS not applicable for this client. ll3 Intake: 01:30 IV: 100ml; Total: 100ml. kl Outcome: 00:25 Decision to Hospitalize by Provider. kdr 03:03 Admitted to Med/surg accompanied by tech, via wheelchair, room 217, with chart, Report ll3 called to ALISON Michael 03:03 Condition: stable 03:03 Instructed on the need for admit, Demonstrated understanding of instructions. 03:29 Patient left the ED. ll3 Signatures: Dispatcher [employer] Anna Moreno, RN Akhil Andrade MD MD kdr Gomez, Alice ag3 Suzanne Alexander RN RN ll3 Bridget Gan RN RN vc1
[2022-09-09 00:26] LABS: Absolute Lymphocytes (CBC) 2.2 K/uL (0.7-4.9); Hematocrit 30.6 % (39.6-49.0); Lymphocytes % 26.6 % (15.3-44.8); MCV 95.3 fL (80-100); MPV 7.3 fL (7.6-11.3); RBC Red Blood Cell Count 3.21 M/uL (4.33-5.43)
--- NOTE | 2022-09-09 00:26 | EDPHYS ---
Physician Documentation [facility] Name: Asim Ochoa Age: 82 yrs Sex: Male : 1940 Arrival Date: 09/08/2022 Time: 23:00 Bed 6 Private MD: ED Physician Akhil Xie HPI: 09/09 03:40 This 82 yrs old Male presents to ER via Wheelchair with complaints of Leg Swelling. kdr 03:40 Patient's family noted that for the last week he has had increased swelling to both kdr lower legs. They state that he has not been on a water pill but they gave him some earlier today without significant improvement. He also began to have some redness and erythema to the distal lower extremities more on the right than the left. Patient denies chest pain or shortness of breath. He does not appear in any acute distress and does not require emergent intervention at initial presentation. He remained stable in the ED. Onset: The symptoms/episode began/occurred gradually, 1 week(s) ago. Severity of symptoms: At their worst the symptoms were moderate in the emergency department the symptoms are unchanged. The patient has not experienced similar symptoms in the past. The patient has not recently seen a physician. Historical: - Allergies: 09/08 23:28 No Known Allergies; vc1 - PMHx: 23:28 Hypertension; Ulcers; Atrial fibrillation; vc1 - PSHx: 23:28 Watchman; vc1 - Immunization history:: Client reports receiving the 2nd dose of the Covid vaccine. - Social history:: Smoking status: Patient denies any tobacco usage or history of. ROS: 09/09 03:40 Constitutional: Negative for fever, chills, and weight loss, Eyes: Negative for injury, kdr pain, redness, and discharge, Neck: Negative for injury, pain, and swelling, Cardiovascular: Negative for chest pain, palpitations, and edema, Respiratory: Negative for shortness of breath, cough, wheezing, and pleuritic chest pain, Abdomen/GI: Negative for abdominal pain, nausea, vomiting, diarrhea, and constipation, Back: Negative for injury and pain, : Negative for injury, bleeding, discharge, and swelling, MS/Extremity: Negative for injury and deformity, Neuro: Negative for headache, weakness, numbness, tingling, and seizure activity. Psych: Negative for depression, anxiety, suicide ideation, homicidal ideation, and hallucinations, Allergy/Immunology: Negative for hives, rash, and allergies, Endocrine: Negative for neck swelling, polydipsia, polyuria, polyphagia, and marked weight changes, Hematologic/Lymphatic: Negative for swollen nodes, abnormal bleeding, and unusual bruising. Cardiovascular: Positive for edema, Negative for chest pain, orthopnea, palpitations, paroxysmal nocturnal dyspnea. MS/extremity: Positive for decreased range of motion, erythema, swelling, tenderness, of the right leg and left leg. Exam: 03:40 Constitutional: This is a well developed, well nourished patient who is awake, alert, kdr and in no acute distress. Head/Face: Normocephalic, atraumatic. Eyes: Pupils equal round and reactive to light, extra-ocular motions intact. Lids and lashes normal. Conjunctiva and sclera are non-icteric and not injected. Cornea within normal limits. Periorbital areas with no swelling, redness, or edema. Neck: Trachea midline, no thyromegaly or masses palpated, and no cervical lymphadenopathy. Supple, full range of motion without nuchal rigidity, or vertebral point tenderness. No Meningismus. Chest/axilla: Normal chest wall appearance and motion. Nontender with no deformity. No lesions are appreciated. Cardiovascular: Regular rate and rhythm with a normal S1 and S2. No gallops, murmurs, or rubs. Normal PMI, no JVD. No pulse deficits. Respiratory: Lungs have equal breath sounds bilaterally, clear to auscultation and percussion. No rales, rhonchi or wheezes noted. No increased work of breathing, no retractions or nasal flaring. Abdomen/GI: Soft, non-tender, with normal bowel sounds. No distension or tympany. No guarding or rebound. No evidence of tenderness throughout. Back: No spinal tenderness. No costovertebral tenderness. Full range of motion. Neuro: Awake and alert, GCS 15, oriented to person, place, time, and situation. Cranial nerves II-XII grossly intact. Motor strength 5/5 in all extremities. Sensory grossly intact. Cerebellar exam normal. Normal gait. Psych: Awake, alert, with orientation to person, place and time. Behavior, mood, and affect are within normal limits. 03:40 Skin: cellulitis, that is moderate, irregular, induration, that is mild is noted, that is moderate is noted, Turgor: is poor. Vital Signs: 09/08 23:25 BP 183 / 87; Pulse 61; Resp 14; Temp 98; Pulse Ox 100% ; Weight 68.04 kg; Height 5 ft. vc1 8 in. ; 09/09 01:27 BP 186 / 86; Pulse 63; Resp 17; Pulse Ox 100% on R/A; ll3 02:42 BP 196 / 98; Pulse 71; Resp 16; Pulse Ox 100% on R/A; ll3 03:02 BP 175 / 103; Pulse 66; Resp 20; Pulse Ox 99% on R/A; ll3 09/08 23:25 Body Mass Index 22.81 (68.04 kg, 172.72 cm) vc1 MDM: 09/08 23:55 Patient medically screened. snw 09/09 03:40 Data reviewed: vital signs, nurses notes, lab test result(s), radiologic studies. kdr Consideration of Admission/Observation Escalation of care including admission/observation considered. Management of patient was discussed with the following: Hospitalist: Saurabh Weiss. 09/08 23:35 Order name: Basic Metabolic Panel; Complete Time: 01:30 09/08 23:35 Order name: CBC with Diff; Complete Time: 00:51 09/08 23:35 Order name: LFT's; Complete Time: 01:30 09/08 23:35 Order name: Magnesium; Complete Time: 01:30 09/08 23:36 Order name: NT PRO-BNP; Complete Time: 01:30 09/08 23:36 Order name: PT-INR; Complete Time: 00:51 09/08 23:36 Order name: Troponin HS; Complete Time: 01:30 09/09 00:51 Order name: Procalcitonin la1 09/08 23:36 Order name: XRAY Chest (1 view) 09/09 00:12 Order name: US Extremity Venous W Compression Ashish kdr 09/08 23:36 Order name: EKG; Complete Time: 23:37 09/08 23:36 Order name: Cardiac monitoring; Complete Time: 23:54 09/08 23:36 Order name: EKG - Nurse/Tech; Complete Time: 23:54 09/08 23:36 Order name: IV Saline Lock; Complete Time: 00:06 09/08 23:36 Order name: Labs collected and sent; Complete Time: 00:06 09/08 23:36 Order name: O2 Per Protocol; Complete Time: 23:54 09/08 23:36 Order name: O2 Sat Monitoring; Complete Time: 23:54 Administered Medications: 00:19 Drug: Furosemide IVP 40 mg Route: IVP; Site: right antecubital; kl 02:38 Follow up: Response: No adverse reaction ll3 01:02 Drug: ceFAZolin IVPB 1 grams Route: IVPB; Site: right antecubital; ll3 01:30 Follow up: IV Status: Completed infusion; IV Intake: 100ml kl 02:37 Drug: carvedilol PO 6.25 mg Route: PO; ll3 03:02 Follow up: BP 175 / 103; Pulse 66 bpm; Resp 20 bpm; Pulse Ox 99% RA; Response: No ll3 adverse reaction; Blood pressure is lowered 02:37 Drug: Furosemide IVP 20 mg Route: IVP; Site: right antecubital; ll3 03:03 Follow up: Response: No adverse reaction ll3 Disposition Summary: 09/09/22 00:25 Hospitalization Ordered Hospitalization Status: Inpatient Admission kdr Provider: Cachorro Santos Location: Telemetry/MedSurg (Inpatient) kdr Condition: Fair kdr Problem: new kdr Symptoms: are unchanged kdr Bed/Room Type: Standard kdr Room Assignment: [facility](09/09/22 02:09) eb1 Diagnosis - Peripheral edema -bilaterally kdr - Cellulitis of left lower limb kdr - Cellulitis of right lower limb kdr Forms: - Medication Reconciliation Form kdr - SBAR form kdr Signatures: Dispatcher [employer] Anna Moreno RN RN kl Rittger, Kevin, MD MD kdr Waters, Shelly, FNP-C ANDREWS-Jacquew Saurabh Weiss FNP-Hanna SPARROW-Cristina Pina RN RN eb1 Chandana Isaac RN RN as6 Suzanne Alexander RN RN ll3 Bridget Gan RN RN vc1 Corrections: (The following items were deleted from the chart) 02:09 00:25 kdr eb1
[2022-09-09 00:52] LABS: ALT/SGPT 19 U/L (16-61); AST/SGOT 20 U/L (15-37); Albumin 2.8 g/dL (3.4-5.0); Alkaline Phosphatase 77 U/L (45-117); BUN Blood Urea Nitrogen 43 mg/dL (7-18); Bicarbonate 27 mEq/L (21-32); Bilirubin Total 0.2 mg/dL (0.2-1.0); Glomerular Filtration Rate 32 ml/min (=/>90); Glucose Level 121 mg/dL (74-106); Magnesium 2.3 mg/dL (1.6-2.4); NT PRO-BNP 8264 pg/mL (<450); Potassium 4.5 mEq/L (3.5-5.1); Protein, Total 7.3 g/dL (6.4-8.2); Sodium Level 139 mEq/L (136-145); Troponin High Sensitivity 29.9 pg/mL (<58.9)
[2022-09-09] MEDS ORDERED: CEFAZOLIN SODIUM 1 GM/VIAL ONE (01:00)
[2022-09-09] MEDS ORDERED: NA CHLORIDE 0.9% 100 ML ONE (01:00)
[2022-09-09 01:27] LABS: Bilirubin Direct < 0.1 mg/dL (0-0.2)
--- NOTE | 2022-09-09 02:12 | P.HP ---
Certification for Inpatient Patient admitted to: Inpatient With expected LOS: >2 Midnights Patient will require the following post-hospital care: None Practitioner: I am a practitioner with admitting privileges, knowledge of patient current condition, hospital course, and medical plan of care. Services: Services provided to patient in accordance with Admission requirements found in Title 42 Section 412.3 of the Code of Federal Regulations <Saurabh Weiss - Last Filed: 09/09/22 02:08> Patient History Date of Service: 09/09/22 Reason for admission: Acute CHF History of Present Illness: 82-year-old male with history of hypertension, atrial fibrillation status post Watchman procedure presents to the emergency department for lower extremity edema, orthopnea, dyspnea on exertion. His symptoms started approximately 6 weeks ago with progressively worsening swelling. He currently has pitting edema to level of proximal thigh. He has no known history of congestive heart failure his labs were significant for creatinine of 2.03, labs from 2019 showed a creatinine of 0.69, he did have a recent lab on July 24, 2022 which showed a creatinine of 2.1, he was unaware of this recent increase in his creatinine. BNP 8264 high-sensitivity troponin 29.9 chest x-ray showed CHF pattern. He was given IV Lasix in the ED, will need to admit for new onset CHF, anasarca, acute kidney injury. - Past Medical/Surgical History Diabetic: No -: Hypertension -: Gastric ulcer -: Atrial fibrillation status post Watchman procedure -: cataract sx -: Watchman procedure Psychosocial/ Personal History: Patient lives at home with family - Family History Family History: Reviewed- Non-Contributory - Social History Smoking Status: Never smoker Alcohol use: Yes CD- Drugs: No Caffeine use: Yes Place of Residence: Home <Saruabh Weiss - Last Filed: 09/09/22 02:08> Date of Service: 09/09/22 <Cachorro Santos - Last Filed: 09/09/22 17:08> Allergies No Known Allergies Allergy (Verified 09/09/22 03:44) Home Medications: Amlodipine Besylate/Benazepril [Amlodipine-Benazepril 10-20 mg] 10 mg PO DAILY 05/23/18 Review of Systems 10-point ROS is otherwise unremarkable Respiratory: Shortness of Breath, SOB with Excertion Cardiovascular: Orthopnea, Edema <Saurabh Weiss - Last Filed: 09/09/22 02:08> Physical Examination - Physical Exam General: Alert, In no apparent distress, Oriented x3 HEENT: Atraumatic, PERRLA, Mucous membr. moist/pink, EOMI, Sclerae nonicteric Neck: Supple, 2+ carotid pulse no bruit, No LAD, Without JVD or thyroid abnormality Respiratory: Clear to auscultation bilaterally, Normal air movement Cardiovascular: Normal S1 S2, Edema (Anasarca, pitting edema to the level of the proximal thigh), Irregular heart rate/rhythm (A-fib, rate controlled) Capillary refill: <2 Seconds Gastrointestinal: Normal bowel sounds, No tenderness Musculoskeletal: No tenderness Integumentary: No rashes Neurological: Normal speech, Normal strength at 5/5 x4 extr, Normal tone, Normal affect - Studies Laboratory Data (last 24 hrs) 09/09/22 00:01: Sodium 139, Potassium 4.5, BUN 43 H, Creatinine 2.03 H, Glucose 121 H, Magnesium 2.3, Total Bilirubin 0.2, AST 20, ALT 19, Alkaline Phosphatase 77 09/08/22 23:50: PT 11.0, INR 1.00 09/08/22 23:50: WBC 8.20, Hgb 10.0 L, Hct 30.6 L, Plt Count 347 <Saurabh Weiss - Last Filed: 09/09/22 02:08> - Studies Laboratory Data (last 24 hrs) 09/09/22 00:01: Sodium 139, Potassium 4.5, BUN 43 H, Creatinine 2.03 H, Glucose 121 H, Magnesium 2.3, Total Bilirubin 0.2, AST 20, ALT 19, Alkaline Phosphatase 77 09/08/22 23:50: PT 11.0, INR 1.00 09/08/22 23:50: WBC 8.20, Hgb 10.0 L, Hct 30.6 L, Plt Count 347 <Cachorro Santos - Last Filed: 09/09/22 17:08> Assessment and Plan - Plan Assessment: Acute decompensated CHFunknown EF Acute kidney injury Hypertension History of atrial fibrillation s/p Watchman procedure Plan: Acute decompensated CHFunknown EF Continue with IV diuresis, cardiology consult in place and echocardiogram ordered. No known history of congestive heart failure, will hold off on JAYSHREE inhibitor given acute kidney injury, beta-yunior ordered, strict intake/output and daily weights ordered. Patient denies any recent chest pain, has never had cardiac catheterization performed that he is aware of. Appreciate further input from cardiology. Acute kidney injury Nephrology consult, renal ultrasound ordered suspect this is at least partly related to CRS. Hypertension Patient unsure of his home medications, is hypertensive at this time. Carvedilol added. Hold any JAYSHREE/ARB for now. History of atrial fibrillation s/p Watchman procedure Noted, stable. DVT PPX: Heparin subcu Code status: Full Discharge Plan: Home Plan to discharge in: 72 Hours - Advance Directives Does patient have a Living Will: Yes Does patient have a Durable POA for Healthcare: Yes - Code Status/Comfort Care Code Status Assessed: Yes (Full code) Critical Care: No Time Spent Managing Pts Care (In Minutes): 70 <Saurabh Weiss - Last Filed: 09/09/22 02:08> Physician Review: Patient Assessed, Agree with Above Assessment and Plan <Cachorro Santos - Last Filed: 09/09/22 17:08>
[2022-09-09] MEDS ORDERED: carvediloL 6.25 MG TAB ONE (02:36)
[2022-09-09] MEDS ORDERED: FUROSEMIDE 20 MG/ 2ML VIAL ONE (02:36)
[2022-09-09] MEDS ORDERED: ONDANSETRON 4 MG/2 ML VIAL IV PRN (03:05)
[2022-09-09 04:23] VITALS: BMI 24.0
[2022-09-09 04:53] LABS: Thyroid Stimulating Hormone 1.59 uIU/mL (0.358-3.740); Troponin High Sensitivity 27.6 pg/mL (<58.9); Uric Acid 5.7 mg/dL (3.5-7.2)
[2022-09-09 05:38] LABS: Specific Gravity 1.009 (1.005-1.030); Urine Bacteria None Seen /HPF (<20); Urine Bilirubin NEGATIVE (Negative); Urine Blood 2+ (Negative); Urine Clarity Clear (Clear); Urine Color Colorless (Yellow); Urine Crystals Unidentified Few /HPF (None Seen); Urine Glucose NEGATIVE (Negative); Urine Mucus Slight /HPF (None Seen); Urine Protein 1+ (Negative); Urine Urobilinogen Normal (Normal); Urine pH 5.5 (5.0-7.0)
--- NOTE | 2022-09-09 08:21 | RAD REPORT ---
EXAM DESCRIPTION: US - Renal Ultrasound-Complete - 09/09/2022 5:11 am CLINICAL HISTORY: julio césar COMPARISON: Renal Ultrasound-Complete dated 05/22/2018 TECHNIQUE: Sonographic grayscale and color flow images of the kidneys and bladder were obtained. FINDINGS: Both kidneys are normal in size, and shape. Bilateral increased cortical echogenicity, sug gesting medical renal disease. The right kidney measures 10.9 centimeter in length. No hydronephrosis, focal mass or perinephric flu id. The left kidney measures 10.4 centimeter in length. No hydronephrosis, focal mass or perinephric flui d. Incidentally noted upper to midpole 1.4 centimeter anechoic thin-walled cortical cyst. No echogenic calculi seen bilaterally. The urinary bladder is incompletely distended without gross wall abnormality seen. Floating echogenic ity suggesting debris. IMPRESSION: No hydroureteronephrosis or evidence of echogenic calculi. Bilateral increased cortical echogenicity, suggesting medical renal disease. Incidentally noted 1.4 centimeter left renal cyst.
[2022-09-09] MEDS ORDERED: FUROSEMIDE 40 MG/4 ML VIAL IV SCH (09:00)
[2022-09-09] MEDS ORDERED: carvediloL 6.25 MG TAB PO SCH (09:00)
[2022-09-09] MEDS: HEPARIN 5000 UNIT/ML 1 ML VIAL SQ SCH ×2 (09:15→20:51)
[2022-09-09] MEDS ORDERED: PNEUMOCOCCAL VACCINE 0.5 ML IMVAC ONE (10:00)
--- NOTE | 2022-09-09 14:43 | CON ---
Date of Consultation: 09/09/2022 Reason For Consultation: Elevated BUN and creatinine, fluid management. History Of Present Illness: This is an 82-year-old gentleman with significant past medical history of hypertension, gastric ulcer, AFib, had Watchman procedure, the patient was in his regular state of health. The patient was brought to the hospital because of increased swelling and orthopnea for the last few weeks gradually. The patient on arrival found to be over volume. Primary workup showed elevation in BUN and creatinine. Creatinine is 2 with GFR of 32. Reviewing the record for the patient back in July after fall, creatinine was 2.1, GFR of 31. Back in 2018; creatinine 0.6, GFR above 100. The patient not aware about worsening kidney function back in July. The patient denied taking any excessive of nonsteroidal. He just takes it occasionally. The patient denied any contrast. The patient admits that he has polyuria and has nocturia and has leg swelling. Past Medical History: Includes; 1. Hypertension. 2. Gastric ulcer. 3. AFib. Had Watchman procedure. Past Surgical History: Includes cataract, Watchman procedure. Family History: Positive for hypertension. Social History: Denied smoking. Occasional alcohol. Denied drugs abuse. Review of Systems: Head and Neck: No red eye. No ear pain. GI: No nausea. No vomiting. : No polyuria. No dysuria. No hematuria. Graduate Teaching Associate: Not applicable. Respiratory: Has shortness of breath. Cardiovascular: Has leg swelling. Has orthopnea. Endocrine: No polydipsia. Skin: No rash. Neuro: Has weakness. Musculoskeletal: Generalized fatigue. Physical Examination: General: When I saw the patient; the patient lying in bed. Vital Signs: Blood pressure 188/93, pulse of 68, afebrile. Chest: Crackles bilateral. Heart: S1, S2. Systolic murmur. Irregular. Abdomen: Soft, nontender. Extremities: +3 edema. Neurologic: Alert. No focality. Laboratory Data: In May 2018; creatinine 0.6, GFR above 90. July 2022; creatinine 2.1, GFR of 31. Today's lab data; sodium 139, potassium 4.5, bicarb 27, BUN 43, creatinine 2, GFR of 32, calcium 8.7. AST and LFT within normal limit. Albumin 2.8. BNP 8264, TSH 1.5. Chest x-ray, cardiomegaly with congestion bilateral. Urinalysis; specific gravity of 1.009, +1 protein. WBC 8.2, H and H 10/30.6, platelet 347. Renal ultrasound; 10.9/10.4, renal cyst left-sided 1.4 cm. Home Medications: Amlodipine and benazepril. Assessment And Plan: 1. Acute kidney injury, possible secondary to cardiorenal syndrome, over volume. Obstructive uropathy has been ruled out and rhabdomyolysis has been ruled out. I am going to go ahead and send for full workup. I agree with holding benazepril and we will start the patient on Lasix and we will monitor with the presence of the anemia. I am going to send for serum protein electrophoresis and we will follow up the patient. I will send for PTH to evaluate the chronicity of the disease. 2. Hypertension, poorly controlled. Increase Lasix and increase carvedilol to 12.5. We will utilize blood pressure for more diuresis. We will follow up echocardiogram, start the patient on nitroglycerin. 3. Edema, possible secondary to renal failure/cardiorenal syndrome. I am going to go ahead and send for TSH and PC ratio and we will follow up. 4. Atrial fibrillation by primary. 5. Renal cyst, simple. Needs follow up as outpatient. We reassured the patient. 6. New onset congestive heart failure as by primary. We will follow up with Cardiology. Time spent examining the patient [id number], reviewing data, lab and radiology, placing order, discussing the case with the patient, discussing the case with the hat steamer including nurse more than 65 minutes JANET Voice ID: [id number] Report ID: [id number] MTDD
[2022-09-09] MEDS: NITROGLYCERIN 0.2 MG/HR (5 MG) PATCH TD SCH (15:14)
[2022-09-09] MEDS: FUROSEMIDE 40 MG/4 ML VIAL IV SCH ×2 (15:14→20:50)
--- NOTE | 2022-09-09 19:21 | RAD REPORT ---
EXAM DESCRIPTION: US - Extrem Venous W Compress Ashish - 09/09/2022 12:58 am CLINICAL HISTORY: 82 years, Male, SWELLING COMPARISON: None. FINDINGS: Grayscale imaging as well as spectral and color Doppler interrogation of the deep venous s ystem of bilateral lower extremity was performed with visualization from the common femoral veins to the popliteal veins and posterior tibial vein. There is normal compressibility, augmentation and flow with no visualized thrombus. No focal fluid collection is identified. Bilateral lower extremity edema IMPRESSION: No DVT. Bilateral lower extremity edema Electronically signed by: Vincent Cowart DO 09/09/2022 1:18 AM CDT Due to temporary technical issues with the PACS/Fluency reporting system, reports are being signed by the in house radiologists without review as a courtesy to insure prompt reporting. The interpreting radiologist is fully responsible for the content of the report.
--- NOTE | 2022-09-09 19:22 | RAD REPORT ---
EXAM DESCRIPTION: RAD - Chest Single View - 09/08/2022 11:46 pm CLINICAL HISTORY: 82 years Male, CHEST PAIN TECHNIQUE: 1 view (Single frontal view of the chest) COMPARISON: None. FINDINGS: Shallow inspiratory effort limiting evaluation of lung bases. LINES AND TUBES: None. CARDIOVASCULAR STRUCTURES: Cardiomegaly. Mild pulmonary venous congestion. LUNGS: Bilateral lower lobe atelectasis. PLEURA: Small bilateral pleural effusions. No pneumothorax. BONES: No acute osseous abnormality of the thorax. IMPRESSION: 1. Cardiomegaly, mild pulmonary venous congestion, small bilateral pleural effusions. 2. Bilateral lower lobe atelectasis. Electronically signed by: Radhames Mejia MD 09/09/2022 12:05 AM CDT Due to temporary technical issues with the PACS/Fluency reporting system, reports are being signed by the in house radiologists without review as a courtesy to insure prompt reporting. The interpreting radiologist is fully responsible for the content of the report.
[2022-09-09] MEDS ORDERED: carvediloL 12.5 MG TAB PO SCH (21:00)
[2022-09-09] MEDS: MELATONIN 5 MG TABLET PO PRN (21:01)
[2022-09-10] MEDS: ACETAMINOPHEN 500 MG TAB PO PRN ×2 (01:21→23:00)
[2022-09-10 04:07] LABS: Absolute Lymphocytes (CBC) 1.5 K/uL (0.7-4.9); Hematocrit 26.5 % (39.6-49.0); Lymphocytes % 27.4 % (15.3-44.8); MCV 95.1 fL (80-100); MPV 7.3 fL (7.6-11.3); RBC Red Blood Cell Count 2.78 M/uL (4.33-5.43)
[2022-09-10 04:53] LABS: Albumin 2.4 g/dL (3.4-5.0); Ferritin 561.9 ng/mL (26-388); Magnesium 2.4 mg/dL (1.6-2.4); Phosphorus 4.7 mg/dL (2.5-4.9); Potassium 4.8 mEq/L (3.5-5.1); Uric Acid 6.6 mg/dL (3.5-7.2)
--- NOTE | 2022-09-10 04:54 | EKG ---
Test Date: 2022-09-08 Test Time: 23:49:13 Rod Drawer: MARILYN MEASUREMENT RESULTS: Intervals: Rate: 74 AL: QRSD: 132 QT: 434 QTc: 481 [place]: P: AL: QRS: -59 T: 0 INTERPRETIVE STATEMENTS: Atrial fibrillation Left axis deviation Right bundle branch block Anterior infarct, age undetermined Abnormal ECG Compared to ECG 07/24/2022 08:32:56 Left-axis deviation now present Left anterior fascicular block no longer present Bifascicular block no longer present Myocardial infarct finding still present Electronically Signed On 09-10-22 04:52:12 CDT by Sarabjit Saucedo
--- NOTE | 2022-09-10 07:43 | ECHO ---
HEIGHT: 5 ft 8 in WEIGHT: 159 lb 1.6 oz DATE OF STUDY: 09/09/[address]: Saurabh Weiss NP 2-DIMENSIONAL: YES M.MODE: YES DOPPLER: YES COLOR FLOW: YES TDS: PORTABLE: YES DEFINITY: BUBBLE STUDY: DIAGNOSIS: CONGESTIVE HEART FAILURE CARDIAC HISTORY: CATHERIZATION: NO SURGERY: NO PROSTHETIC VALVE: NO PACEMAKER: NO MEASUREMENTS (cm) DIASTOLIC (NORMALS) SYSTOLIC (NORMALS) IVSd 1.4 (0.6-1.2) LA Diam 4.5 (1.9-4.0) LVEF 69% LVIDd 3.9 (3.5-5.7) LVIDs 2.4 (2.0-3.5) %FS 38% LVPWd 1.4 (0.6-1.2) Ao Diam 3.0 (2.0-3.7) 2 DIMENSIONAL ASSESSMENT: RIGHT ATRIUM: NORMAL LEFT ATRIUM: DILATED RIGHT VENTRICLE: NORMAL LEFT VENTRICLE: NORMAL TRICUSPID VALVE: NORMAL MITRAL VALVE: NORMAL PULMONIC VALVE: NORMAL AORTIC VALVE: NORMAL PERICARDIAL EFFUSION: NONE AORTIC ROOT: NORMAL LEFT VENTRICULAR WALL MOTION: NORMAL DOPPLER/COLOR FLOW: MODERATE PULMONARY HYPERTENSION COMMENTS: 1. MILD TRICUSPID REGURGITATION - MODERATE PULMONARY HYPERTENSION 2. RIGHT VENTRICULAR SYSTOLIC PRESSURE 52 mmHg 3. NORMAL LEFT VENTRICULAR EJECTION FRACTION AND SIZE TECHNOLOGIST: FREEMAN GILMAN
[2022-09-10 07:58] LABS: Rheumatoid Factor NEG (NEG)
[2022-09-10] MEDS: FUROSEMIDE 40 MG/4 ML VIAL IV SCH ×3 (08:41→20:44)
[2022-09-10] MEDS: HEPARIN 5000 UNIT/ML 1 ML VIAL SQ SCH ×2 (08:41→20:44)
[2022-09-10] MEDS: NITROGLYCERIN 0.2 MG/HR (5 MG) PATCH TD SCH (08:46)
[2022-09-10] MEDS: HYDRALAZINE HCL 20 MG/ML VIAL IV PRN (08:49)
[2022-09-10] MEDS ORDERED: EPOETIN ALFA-EPBX 10,000 UNIT/ML VIAL SQ ONE (12:00)
--- NOTE | 2022-09-10 12:43 | PN ---
Date of Progress Note: 09/10/2022 Subjective: The patient was admitted with acute kidney injury secondary to cardiorenal, anasarca. The patient was started on diuresis yesterday. The patient more awake. The swelling has been subsided. Kidney function plateaued. Physical Examination: Vital Signs: When I saw the patient; blood pressure 182/86, pulse of 67, afebrile. The patient had good urine output, voiding. Chest: Faint rales bilateral. Heart: S1, S2. Systolic murmur. Abdomen: Soft, nontender. Extremity: +1 edema. Neuro: Alert. No focality. Laboratory Data: WBC 5.5, H and H 8.8/26.5. Sodium 140, potassium 4.8, bicarb 28, BUN 48, creatinine 2.3, GFR 29, uric acid 6.6, calcium 8.9, phosphorus 4.7. Iron saturation 34, albumin 2.4, corrected calcium 10.1. Echocardiogram was done yesterday. Ejection fraction of 69%, right ventricular pressure 52, elevated. Current Medications: The patient on include; 1. Heparin. 2. Carvedilol 12.5 b.i.d. 3. Hydralazine p.r.n. 4. Nitroglycerin patch. 5. Lasix 40 t.i.d. 6. Melatonin. Assessment And Plan: 1. Acute kidney injury on chronic kidney disease secondary to cardiorenal. Looked to me plateaued, still on the over volume side. I am going to continue current dose of Lasix. Given the finding on the echocardiogram, I am going to add spironolactone and we will follow up the patient. 2. Hypertension, not controlled. Add spironolactone, add hydralazine. Continue beta-yunior. We will utilize blood pressure for more diuresis. 3. Edema secondary to cardiorenal/right heart failure. Add spironolactone. Continue Lasix, hypothyroidism, and was ruled out, still pending PC ratio. 4. Anemia of chronic kidney disease. We will give the patient Retacrit single dose and we will follow up. 5. Chronic kidney disease, normal-sized kidney, proteinuric, nonnephrotic secondary to cardiorenal with acute kidney injury. As above, the chronic kidney disease supported with elevation in PTH and the kidney size. We will try to optimize the fluid status by diuresis. We will follow up. 6. Left renal cyst, simple. We will continue to monitor. Time spent examining the patient [id number], reviewing data, lab and radiology, placing order, discussing the case with the patient, discussing the case with the steam clothes press operator including nurse more than 35 minutes JANET Voice ID: [id number] Report ID: [id number] [facility] [place]
[2022-09-10] MEDS: HYDRALAZINE HCL 25 MG TABLET PO SCH ×2 (13:58→20:44)
--- NOTE | 2022-09-10 16:34 | PN ---
Date of Progress Note: 09/10/2022 The patient came in with congestive heart failure, hypertension poorly controlled. Blood pressure to day is 181/108. Nephrology thinks the patient may have cardiorenal syndrome. The patient has a hist ory of hypertension, atrial fibrillation, status post Watchman procedure. He is not on any anticoagu lation. Echocardiogram basically showed pulmonary hypertension with right ventricular systolic press ure of 51 mmHg with normal ejection fraction, some diastolic dysfunction. Lotrel has been held. The patient is on Lasix. Parathyroid levels are pending. Serum protein electrophoresis is pending and ordered by Dr. Garcia. I do not suggest any change in medical therapy at this point. I would like to increase his Coreg to 25 mg b.i.d. for blood pressure control. We will continue to follow. AMANDA/RODNEY Voice ID: [id number] Report ID: [id number]
--- NOTE | 2022-09-10 19:31 | CON ---
Date of Consultation: 09/09/2022 Reason For Consultation: New onset congestive heart failure. History Of Present Illness: Mr. Ochoa is 82. Recently had a Watchman 5 years ago. Has peptic ulc er disease, atrial fibrillation, hypertension, came in with new onset congestive heart failure, PND, orthopnea, pedal edema. Denied any palpitation, syncope, fever or chills. Denied any chest pain, na usea, vomiting, or diaphoresis. Creatinine was 2.03. BNP was 8000. Allergies: NONE. Past Medical History: As stated earlier. Review of Systems: Negative. Social History: Negative. Family History: Negative. Medications: At home include Lotrel, Coreg, Lasix, hydralazine. Physical Examination: Vital Signs: Stable, afebrile. HEENT: Negative. Neck: Supple with no bruit. Chest: Clear on the right, some rales on the left. Cardiac: Revealed atrial fibrillation, rate controlled. Abdomen: Benign. Extremities: Revealed 1+ edema. Laboratory Data: Creatinine of 2.03. BNP is 8000. EKG is nonspecific. Chest x-ray showed mild CHF . Impression And Plan: 1.New onset congestive heart failure, probably systolic. Echocardiogram is pending. 2.Renal insufficiency, significant Renal consultation is pending. The patient will need close follo wup when he goes home, but for now we will hold the Lotrel, continue the Coreg and Lasix. He is on h eparin subcu. Continue hydralazine. We will keep an eye on his I's and O's and creatinine. We will continue to follow. AMANDA/RODNEY Voice ID: [id number] Report ID: [id number]
--- NOTE | 2022-09-10 19:43 | P.PN ---
Subjective Date of Service: 09/10/22 Chief Complaint: Acute CHF No acute events overnight. He was sitting upright eating breakfast this morning. He reports that his shortness of breath and lower extremity edema has improved significantly. He denies any chest pain or palpitations. Review of Systems 10-point ROS is otherwise unremarkable Respiratory: Shortness of Breath Cardiovascular: Orthopnea, Edema Physical Examination - Vital Signs Temperature: 97.2 F Blood Pressure: 144/86 Pulse: 56 Respirations: 16 Pulse Ox (%): 96 - Physical Exam General: Alert, In no apparent distress, Oriented x3 HEENT: Atraumatic, Mucous membr. moist/pink, EOMI, Sclerae nonicteric Neck: JVD not distended Respiratory: Diminished, Crackles/rales (bibasilar) Cardiovascular: Regular rate/rhythm, Normal S1 S2, No gallops, No rubs, No murmurs, Edema (1-2+ BLE) Gastrointestinal: Normal bowel sounds, Soft and benign, Non-distended, No tenderness, No rebound, No guarding Musculoskeletal: No clubbing Integumentary: No rashes Neurological: Normal speech, Normal affect Assessment And Plan - Plan # Acute Decompensated Diastolic Congestive Heart Failure with Preserved Ejection Fraction # Moderate Pulmonary Hypertension # Hypertension - Consult Cardiology and spoke with Dr. Saucedo - recommendations appreciated - Chest x-ray = "1. Cardiomegaly, mild pulmonary venous congestion, small bilate ral pleural effusions. 2. Bilateral lower lobe atelectasis." - Bilateral lower extremity Doppler = "No DVT. Bilateral lower extremity edema" - Transthoracic echocardiogram = "1. mild tricuspid regurgitation moderate pulmonary hypertension 2. right ventricular systolic pressure 52 mmHg 3. normal left ventricular ejection fraction and size." - Diuresis with IV furosemide - Continue carvedilol, hydralazine, spironolactone - Daily weights - Strict I/O - Cardiac diet, 1.5 L fluid restriction, 2 g Na restriction # Elevated Creatinine - Acute Kidney Injury vs Chronic Kidney Disease Stage III # Left Renal Cyst (1.4 cm) # Microscopic Hematuria - Nephrology consulted - recommendations appreciated - Creatinine = 2.03 -> 2.23 - Urinalysis = 11-20 RBCs, 1+ protein - Renal ultrasound = "no hydroureteronephrosis or evidence of echogenic calculi. Bilateral increased cortical echogenicity, suggesting medical renal disease. Incidentally noted 1.4 centimeter left renal cyst." - IV diuretics as mentioned above - Monitor creatinine and urine output - Renally dose medications # Chronic Atrial Fibrillation s/p Watchman Device # History of Gastric Ulcer - Continue carvedilol - Not on anticoagulation at home - he is s/p Watchman Cachorro Santos M.D.
[2022-09-11 03:37] LABS: Absolute Lymphocytes (CBC) 1.9 K/uL (0.7-4.9); Lymphocytes % 29.3 % (15.3-44.8); MCV 95.2 fL (80-100); MPV 7.5 fL (7.6-11.3); RBC Red Blood Cell Count 2.94 M/uL (4.33-5.43)
[2022-09-11 03:53] LABS: Albumin 2.5 g/dL (3.4-5.0); Magnesium 2.1 mg/dL (1.6-2.4); Phosphorus 4.6 mg/dL (2.5-4.9); Potassium 4.5 mEq/L (3.5-5.1)
[2022-09-11] MEDS: HYDRALAZINE HCL 25 MG TABLET PO SCH ×3 (06:18→20:45)
[2022-09-11] MEDS: FUROSEMIDE 40 MG/4 ML VIAL IV SCH (08:51)
[2022-09-11] MEDS: NITROGLYCERIN 0.2 MG/HR (5 MG) PATCH TD SCH (08:54)
[2022-09-11] MEDS: SPIRONOLACTONE 25 MG TABLET PO SCH (08:56)
[2022-09-11] MEDS: HEPARIN 5000 UNIT/ML 1 ML VIAL SQ SCH ×2 (08:57→20:45)
[2022-09-11] MEDS ORDERED: DIPHENHYDRAMINE 25 MG TAB/CAP PO PRN (10:32)
--- NOTE | 2022-09-11 11:04 | RAD REPORT ---
EXAM DESCRIPTION: RAD - Chest Single View - 09/11/2022 10:59 am CLINICAL HISTORY: COPD Chest pain. COMPARISON: Chest Single View dated 09/08/2022; Abdomen 1 View (KUB) dated 09/17/2020; Chest Pa And Lat (2 Views) dated 09/17/2020; Renal Ultrasound-Complete dated 09/09/2022 FINDINGS: Portable technique limits examination quality. There is elevation of the right hemidiaphragm, similar to 09/08/2022 prior study. Small bowel pleural effusions. The heart is moderately to significantly enlarged.
--- NOTE | 2022-09-11 12:51 | PN ---
Date of Progress Note: 09/11/2022 Subjective: The patient was admitted with new onset congestive heart failure with acute kidney injury secondary to cardiorenal. The patient complaining from shortness of breath and insomnia. His swelling has been subsided significantly. Physical Examination: Vital Signs: Blood pressure 182/83, pulse of 75, afebrile. The patient had good urine output of 1 L. As weight lopez, no significant weight loss. Chest: Clear to auscultation. Heart: S1, S2. Systolic murmur. Abdomen: Soft, nontender. Extremities: +1 edema, but much significant improvement with wrinkling on the skin, venous stasis change bilateral. Neurologic: Alert. No focality. Laboratory Data: Hemoglobin 9.4, WBC 6.3. Sodium 139, potassium 4.5, bicarb 28, BUN 58, creatinine 2.4, GFR 26, calcium 8.7, phosphorus 4.6, magnesium 2.1. Iron saturation 34. Albumin 2.5, corrected calcium is 9.9. PC ratio is still pending. Serology is still pending. Serum protein electrophoresis is still pending. PTH 137. Current Medications: The patient on include diphenhydramine, Epogen and received single dose yesterday, carvedilol 12.5, hydralazine 25 t.i.d., nitroglycerin patch, spironolactone 25 daily, Lasix 40 mg t.i.d., melatonin. Assessment And Plan: 1. Acute kidney injury, normal size kidney, proteinuric, nonnephrotic. Obstructive uropathy has been ruled out. Currently, the patient looked to me euvolemic. I am going to go ahead and change the Lasix to oral and we will continue to monitor the patient. The marginal fluctuation in the kidney function is acceptable to achieve better volume control. 2. Hypertension, not controlled. I am going to go ahead and increase carvedilol to 25 mg. We just started hydralazine yesterday. We will follow up. We will change the Lasix to oral. 3. Insomnia. Continue melatonin. 4. Congestive heart failure, new onset. We will follow up with Cardiology. Follow up echocardiogram. 5. Renal cyst, stable. We will follow up as outpatient. 6. Anemia of chronic kidney disease. Received Retacrit yesterday. We will monitor. 7. Secondary hyperparathyroidism. No need for vitamin D for the time being. Time spent examining the patient [id number], reviewing data, lab and radiology, placing order, discussing the case with the patient and shipping team leader including hospitalist and nurses more than 35 minutes. JANET Voice ID: [id number] Report ID: [id number] ALHAJI
--- NOTE | 2022-09-11 16:58 | P.PN ---
Subjective Date of Service: 09/11/22 Chief Complaint: Acute CHF No acute events overnight. He reports that his symptoms continue to improve. His creatinine continues to up-trend. He has been working well with PT. Would likely benefit from Home Health services. He denies any chest pain or palpitations. Review of Systems 10-point ROS is otherwise unremarkable Respiratory: Shortness of Breath (mild) Cardiovascular: Edema Physical Examination - Vital Signs Temperature: 97.9 F Blood Pressure: 168/74 Pulse: 80 Respirations: 16 Pulse Ox (%): 95 Assessment And Plan - Plan - Physical Exam General: Alert, In no apparent distress, Oriented x3 HEENT: Atraumatic, Sclerae nonicteric Neck: JVD not distended Respiratory: Diminished, Crackles/rales (faint bibasilar) Cardiovascular: Regular rate/rhythm, No murmurs, Edema (1+ BLE) Gastrointestinal: Normal bowel sounds, Soft, Non-distended, No tenderness Musculoskeletal: No clubbing Integumentary: No rashes Neurological: Normal speech, Normal affect # Acute Decompensated Diastolic Congestive Heart Failure with Preserved Ejection Fraction # Moderate Pulmonary Hypertension # Hypertension - Consult Cardiology and spoke with Dr. Saucedo - recommendations appreciated - Chest x-ray = "1. Cardiomegaly, mild pulmonary venous congestion, small bilateral pleural effusions. 2. Bilateral lower lobe atelectasis." - Bilateral lower extremity Doppler = "No DVT. Bilateral lower extremity edema" - Transthoracic echocardiogram = "1. mild tricuspid regurgitation moderate pulmonary hypertension 2. right ventricular systolic pressure 52 mmHg 3. normal left ventricular ejection fraction and size." - Switch furosemide from IV to PO - Continue carvedilol, hydralazine, spironolactone - Daily weights - Strict I/O - Cardiac diet, 1.5 L fluid restriction, 2 g Na restriction # Elevated Creatinine - Acute Kidney Injury vs Chronic Kidney Disease Stage III # Left Renal Cyst (1.4 cm) # Microscopic Hematuria - Nephrology consulted and spoke with Dr. Garcia - recommendations appreciated - Creatinine = 2.03 -> 2.23 -> 2.40 - Urinalysis = 11-20 RBCs, 1+ protein - Renal ultrasound = "no hydroureteronephrosis or evidence of echogenic calculi. Bilateral increased cortical echogenicity, suggesting medical renal disease. Incidentally noted 1.4 centimeter left renal cyst." - IV diuretics as mentioned above - Monitor creatinine and urine output - Renally dose medications # Chronic Atrial Fibrillation s/p Watchman Device # History of Gastric Ulcer - Continue carvedilol - Not on anticoagulation at home - he is s/p Watchchai Santos M.D.
[2022-09-11] MEDS ORDERED: carvediloL 25 MG TAB PO SCH (21:00)
--- NOTE | 2022-09-11 21:48 | PN ---
Date of Progress Note: 09/11/2022 Patient had came in with a blood pressure of 181/108, hypertension, atrial fibrillation, history of W atchman. Renal thought patient has cardiorenal, congestive heart failure. His ejection fraction is 69% with the pulmonary hypertension that is moderate at 52 mmHg. Serum protein electrophoresis is pe nding. PTH is pending. Lotrel has been held. The patient is on Lasix. Coreg was increased to 12.5 mg b.i.d. and I think we can still bump up that one to 25 b.i.d., avoid JAYSHREE inhibitors or ARBs at th is point, better blood pressure control, outpatient Lexiscan. We will continue to follow. AMANDA/RODNEY Voice ID: [id number] Report ID: [id number]
[2022-09-12] MEDS: HYDRALAZINE HCL 20 MG/ML VIAL IV PRN (01:08)
[2022-09-12 03:52] LABS: Albumin 2.7 g/dL (3.4-5.0); Phosphorus 4.1 mg/dL (2.5-4.9); Potassium 4.5 mEq/L (3.5-5.1)
--- NOTE | 2022-09-12 08:48 | RAD REPORT ---
EXAM DESCRIPTION: CT - Head Brain Wo Cont - 09/12/2022 8:16 am CLINICAL HISTORY: ams COMPARISON: No comparisons TECHNIQUE: Noncontrast head CT images ad were obtained without IV contrast. Multiplanar reformats we re generated and reviewed. All CT scans are performed using dose optimization technique as appropriate and may include automated exposure control or mA/KV adjustment according to patient size. FINDINGS: Streak and motion artifact somewhat limits evaluation. No intracranial hemorrhage, mass, or edema. Midline structures are unremarkable. Normal ventricular caliber for age with mild diffuse parenchymal volume loss. Patchy deep white matter hypodensities, nonspecific, but suggestive of chronic small vessel ischemic changes. Bernstein-white matter differentiation is preserved, without evidence of acute infarct. No abnormal extra- axial fluid collections. Mastoid air cells and visualized portions of the paranasal sinuses are clear. No acute bony findings. IMPRESSION: No evidence of an acute intracranial process. Chronic findings as above.
[2022-09-12] MEDS: FUROSEMIDE 40 MG TABLET PO SCH (08:56)
[2022-09-12] MEDS: HYDRALAZINE HCL 25 MG TABLET PO SCH ×4 (08:57→20:15)
[2022-09-12] MEDS: SPIRONOLACTONE 25 MG TABLET PO SCH (08:57)
[2022-09-12] MEDS: NITROGLYCERIN 0.2 MG/HR (5 MG) PATCH TD SCH (08:57)
[2022-09-12] MEDS: HEPARIN 5000 UNIT/ML 1 ML VIAL SQ SCH ×2 (09:01→20:15)
[2022-09-12] MEDS: ACETAMINOPHEN 500 MG TAB PO PRN (11:20)
--- NOTE | 2022-09-12 12:15 | RAD REPORT ---
EXAM DESCRIPTION: RAD - Hip Left 2 View - 09/12/2022 11:56 am CLINICAL HISTORY: left hip pain COMPARISON: No comparisons TECHNIQUE: Left hip, AP and frogleg views of the left hip. FINDINGS: There is no fracture or dislocation. 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 No erosions. No acute or destructive bony process seen. IMPRESSION: No acute findings of the left hip. 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
--- NOTE | 2022-09-12 12:37 | P.PN ---
Subjective Date of Service: 09/12/22 Chief Complaint: Acute CHF Subjective: Other (C/o L hip pain) Physical Examination - Vital Signs Temperature: 98.5 F Blood Pressure: 163/77 Pulse: 70 Respirations: 16 Pulse Ox (%): 95 - Physical Exam General: Other (appears as his stated age) HEENT: Atraumatic, Normocephalic Neck: Supple, JVD not distended Respiratory: Other (symmetric chest expansion) Cardiovascular: No rubs, No murmurs Gastrointestinal: Soft and benign, No guarding Musculoskeletal: No clubbing Integumentary: No warmth Neurological: Normal speech, Normal tone Urinary: Other (no bladder distention) External genitalia: Deferred Rectal: Deferred Assessment And Plan - Plan # ANA 2/2 prerenal state +/- ATN SCr plateaued at 2.4 Insert cardenas Poor po intake. D5W 75 cc/hr x 2 liters # New CHF, Mod pulmo Htn TTE on 09/09/2022 showed moderate pulmonary hypertension with RVSP 52 mmHg, LVEF normal at 69% Lasix Low Na diet [place] po fluid intake # L hip pain Recent mechanical fall Lidocaine patch to L hip PT consult # Hypertension BP above goal Increase hydralazine to 50 mg by mouth 3 times a day Pain control as above # Renal cyst Stable, we will follow up as outpatient # Anemia of chronic kidney disease Received Retacrit monitor CBC # Secondary hyperparathyroidism No need for vitamin D for the time being Recheck serum iPTH as outpt Physician Review: Patient Assessed, Agree with Above Assessment and Plan
[2022-09-12] MEDS ORDERED: MORPHINE 2 MG/ML SYR IV ONE (13:51)
[2022-09-12] MEDS ORDERED: MORPHINE 2 MG/ML SYR ONE (14:01)
[2022-09-12] MEDS ORDERED: ALPRAZOLAM 0.25 MG TABLET PO ONE (14:35)
[2022-09-12] MEDS: D5W 1,000 ML IV SCH (15:02)
--- NOTE | 2022-09-12 20:26 | P.PN ---
Subjective Date of Service: 09/12/22 Chief Complaint: Acute CHF Overnight, he developed acute alteration in his mental status. He was alert and oriented x 1 this morning, which is a new change. Per his son, it appears that these symptoms occurred about 2 hours after taking diphenhydramine. His CT head was without explanation for his symptoms. Given the timing, it would seem most- likely that diphenhydramine is the culprit. Will attempt to obtain an MRI brain and monitor his neurologic status closely. Review of Systems is unable to be obtained Neurological: Confusion Physical Examination - Vital Signs Temperature: 98.5 F Blood Pressure: 165/79 Pulse: 80 Respirations: 16 Pulse Ox (%): 95 Assessment And Plan - Plan - Physical Exam General: Alert, agitated, Oriented x1 HEENT: Atraumatic, Sclerae nonicteric Neck: JVD not distended Respiratory: Diminished, Crackles/rales (faint bibasilar) Cardiovascular: Regular rate/rhythm, No murmurs, Edema (1+ BLE) Gastrointestinal: Normal bowel sounds, Soft, Non-distended, No tenderness Musculoskeletal: No clubbing Integumentary: No rashes Neurological: Normal speech, Anxious affect # Acute Decompensated Diastolic Congestive Heart Failure with Preserved Ejection Fraction # Moderate Pulmonary Hypertension # Hypertension - Consult Cardiology and spoke with Dr. Saucedo - recommendations appreciated - Chest x-ray = "1. Cardiomegaly, mild pulmonary venous congestion, small bilateral pleural effusions. 2. Bilateral lower lobe atelectasis." - Bilateral lower extremity Doppler = "No DVT. Bilateral lower extremity edema" - Transthoracic echocardiogram = "1. mild tricuspid regurgitation moderate pulmonary hypertension 2. right ventricular systolic pressure 52 mmHg 3. normal left ventricular ejection fraction and size." - Continue furosemide - Continue carvedilol, hydralazine, spironolactone - Daily weights - Strict I/O - Cardiac diet, 1.5 L fluid restriction, 2 g Na restriction # Acute Metabolic Encephalopathy - likely due to Diphenhydramine - CT head = "no evidence of an acute intracranial process. Chronic findings as above." - Requested MRI brain - Monitor mental status closely - Diphenhydramine added to his allergy list # KDIGO Stage I Acute Kidney Injury with possible Chronic Kidney Disease Stage III # Left Renal Cyst (1.4 cm) # Microscopic Hematuria - Nephrology consulted - recommendations appreciated - Creatinine = 2.03 -> 2.23 -> 2.40 - Urinalysis = 11-20 RBCs, 1+ protein - Renal ultrasound = "no hydroureteronephrosis or evidence of echogenic calculi. Bilateral increased cortical echogenicity, suggesting medical renal disease. Incidentally noted 1.4 centimeter left renal cyst." - Diuretics as mentioned above - Monitor creatinine and urine output - Renally dose medications # Chronic Atrial Fibrillation s/p Watchman Device # History of Gastric Ulcer - Continue carvedilol - Not on anticoagulation at home - he is s/p Watchman Cachorro Santos M.D.
[2022-09-12] MEDS: MELATONIN 5 MG TABLET PO PRN (23:04)
[2022-09-13] MEDS: D5W 1,000 ML IV SCH (04:13)
[2022-09-13 07:03] LABS: Albumin 2.7 g/dL (3.4-5.0); Phosphorus 3.8 mg/dL (2.5-4.9); Potassium 4.1 mEq/L (3.5-5.1)
[2022-09-13] MEDS: HEPARIN 5000 UNIT/ML 1 ML VIAL SQ SCH ×3 (09:08→20:20)
[2022-09-13] MEDS: FUROSEMIDE 40 MG TABLET PO SCH (09:08)
[2022-09-13] MEDS: SPIRONOLACTONE 25 MG TABLET PO SCH (09:09)
[2022-09-13] MEDS: LIDOCAINE 4% PATCH TOP SCH (09:09)
[2022-09-13] MEDS: HYDRALAZINE HCL 25 MG TABLET PO SCH ×3 (09:09→20:20)
[2022-09-13] MEDS: NITROGLYCERIN 0.2 MG/HR (5 MG) PATCH TD SCH (09:09)
--- NOTE | 2022-09-13 13:54 | P.PN ---
Subjective Date of Service: 09/14/22 Chief Complaint: Acute CHF Pt with CKD cr 2.0 in July , admitted for SOB and lower extremity edema today Cr stable BP controlled oral intake improved, off IVF Physical exam General: Awake, NAD HEENT: Atraumatic, Normocephalic Neck: Supple, no elevated JVD Respiratory: CTAB Cardiovascular: No rubs, No murmurs Gastrointestinal: Soft and benign, Non-distended Musculoskeletal: edema Integumentary: No warmth # ANA 2/2 prerenal state +/- ATN SCr plateaued at 2.4 Insert cardenas Cont laisx renal dose meds AVoid NSAID and contrast # New CHF, Mod pulmo Htn TTE on 09/09/2022 showed moderate pulmonary hypertension with RVSP 52 mmHg, LVEF normal at 69% Lasix Low Na diet [place] po fluid intake # L hip pain Recent mechanical fall Lidocaine patch to L hip PT consult # Hypertension BP at target Pain control as above # Renal cyst Stable, we will follow up as outpatient # Anemia of chronic kidney disease iron sat 35% no candidate for IV iron Received Retacrit monitor CBC Physical Examination - Vital Signs Temperature: 97.3 F Blood Pressure: 132/75 Pulse: 58 Respirations: 14 Pulse Ox (%): 94 Assessment And Plan Physician Review: Patient Assessed, Agree with Above Assessment and Plan
--- NOTE | 2022-09-13 18:52 | PN ---
Date of Progress Note: 09/13/2022 Subjective: Seen by bedside. He is feeling significantly better. No significant shortness of breat h, but he has still lower extremity edema. Review of Systems: No chest pain. Has shortness of breath on exertion. No orthopnea. No nausea, vomiting, or diarrhea . No dysuria, polyuria, or urinary urgency. All other systems reviewed and they are negative except as mentioned in HPI. Physical Examination: Vital Signs: Reviewed. Head and Neck: Pupils are equal, reactive to light. Mildly elevated JVD. Neck: Supple. Thyroid is not enlarged. Lungs: No rhonchi bilaterally. No accessory muscle use or muscle retraction. Heart: Regular with no extra sounds. Abdomen: Soft, nontender. Bowel sounds positive. No organomegaly. No masses or hernia. No rigidi ty or rebound. Extremities: There is a 2 to 3+ pitting edema. No clubbing, cyanosis, intact pulses. Skin: No rash. Neurologic: Alert, awake, oriented x3. No acute focal deficits appreciated. Lymph Nodes: No cervical or axillary lymphadenopathy. Investigations: His BUN is 54, creatinine is 2.31. Assessment/recommendation: 1.Shortness of breath. This is likely due to fluid retention. The patient is still fluid overloade d, is doing well with Lasix. Continue current management. His ejection fraction is normal. I agree also with spironolactone to augment diuresis. The patient is probably approaching his baseline from this perspective. Cardiology will sign off and will follow up with this patient as an outpatient. 2.Hypertension. Blood pressure is better. Agree with current therapy. SR/MODL Voice ID: [id number] Report ID: [id number]
--- NOTE | 2022-09-13 20:02 | P.PN ---
Subjective Date of Service: 09/13/22 Chief Complaint: Acute CHF No acute events overnight. He is now alert and oriented x 4 to person, place, time and situation. This suggest that his symptoms were secondary to diphenhydramine. He reports that his shortness of breath is improved; however, he reports worsening lower extremity edema. Will adjust diuretic regimen per Nephrology recommendations. Review of Systems 10-point ROS is otherwise unremarkable Cardiovascular: Edema Physical Examination - Vital Signs Temperature: 97.6 F Blood Pressure: 140/73 Pulse: 68 Respirations: 14 Pulse Ox (%): 96 Assessment And Plan - Plan - Physical Exam General: Alert, agitated, Oriented x3 HEENT: Atraumatic, Sclerae nonicteric Neck: JVD not distended Respiratory: Diminished, Clear to auscultation bilaterally Cardiovascular: Regular rate/rhythm, No murmurs, Edema (1+ BLE) Gastrointestinal: Normal bowel sounds, Soft, Non-distended, No tenderness Musculoskeletal: No clubbing Integumentary: No rashes Neurological: Normal speech, Normal affect # Acute Decompensated Diastolic Congestive Heart Failure with Preserved Ejection Fraction # Moderate Pulmonary Hypertension # Hypertension - Consult Cardiology and spoke with Dr. Saucedo - recommendations appreciated - Chest x-ray = "1. Cardiomegaly, mild pulmonary venous congestion, small bilateral pleural effusions. 2. Bilateral lower lobe atelectasis." - Bilateral lower extremity Doppler = "No DVT. Bilateral lower extremity edema" - Transthoracic echocardiogram = "1. mild tricuspid regurgitation moderate pulmonary hypertension 2. right ventricular systolic pressure 52 mmHg 3. normal left ventricular ejection fraction and size." - Continue furosemide - Continue carvedilol, hydralazine, spironolactone - Daily weights - Strict I/O - Cardiac diet, 1.5 L fluid restriction, 2 g Na restriction # Acute Metabolic Encephalopathy - likely due to Diphenhydramine - resolved - CT head = "no evidence of an acute intracranial process. Chronic findings as above." - Requested MRI brain - unable to obtain due to agitation - Diphenhydramine added to his allergy list # KDIGO Stage I Acute Kidney Injury with possible Chronic Kidney Disease Stage III # Left Renal Cyst (1.4 cm) # Microscopic Hematuria - Nephrology consulted - recommendations appreciated - Creatinine = 2.03 -> 2.23 -> 2.40 -> 2.31 - Urinalysis = 11-20 RBCs, 1+ protein - Renal ultrasound = "no hydroureteronephrosis or evidence of echogenic calculi. Bilateral increased cortical echogenicity, suggesting medical renal disease. In cidentally noted 1.4 centimeter left renal cyst." - Diuretics as mentioned above - Monitor creatinine and urine output - Renally dose medications # Chronic Atrial Fibrillation s/p Watchman Device # History of Gastric Ulcer - Continue carvedilol - Not on anticoagulation at home - he is s/p Watchman Cachorro Santos M.D.
[2022-09-14 06:30] LABS: Albumin 2.6 g/dL (3.4-5.0); Phosphorus 3.8 mg/dL (2.5-4.9); Potassium 4.2 mEq/L (3.5-5.1)
[2022-09-14] MEDS: LIDOCAINE 4% PATCH TOP SCH (09:59)
[2022-09-14] MEDS: NITROGLYCERIN 0.2 MG/HR (5 MG) PATCH TD SCH (09:59)
[2022-09-14] MEDS: HYDRALAZINE HCL 25 MG TABLET PO SCH ×4 (10:00→21:13)
[2022-09-14] MEDS: FUROSEMIDE 40 MG TABLET PO SCH (10:00)
[2022-09-14] MEDS: HEPARIN 5000 UNIT/ML 1 ML VIAL SQ SCH (10:00)
[2022-09-14] MEDS: SPIRONOLACTONE 25 MG TABLET PO SCH (10:00)
--- NOTE | 2022-09-14 13:36 | RAD REPORT ---
EXAM DESCRIPTION: RAD - Abdomen 1 View (KUB) - 09/14/2022 1:25 pm CLINICAL HISTORY: to evaluate ileus vs SBO COMPARISON: Abdomen 1 View (KUB) dated 09/17/2020; Chest Single View dated 09/11/2022 FINDINGS: Nonobstructive bowel gas pattern. No acute osseous abnormality.Visualized lungs are unrema rkable.No abnormal calcifications. Moderate formed stool. Moderate to large right and small left pleu ral effusion. IMPRESSION: Nonobstructive bowel gas pattern. Moderate to large right and small left pleural effusion. The effusions appear enlarged compared with 09/11/2022 .
--- NOTE | 2022-09-14 14:24 | P.PN ---
Subjective Date of Service: 09/14/22 Chief Complaint: Acute CHF Pt with CKD cr 2.0 in July , admitted for SOB and lower extremity edema today Cr stable BP controlled Cr down to 2.[address] edema cont to improve will consider to switch to PO lasix in the next few days Physical exam General: Awake, NAD HEENT: Atraumatic, Normocephalic Neck: Supple, no elevated JVD Respiratory: CTAB Cardiovascular: No rubs, No murmurs Gastrointestinal: Soft and benign, Non-distended Musculoskeletal: edema Integumentary: No warmth # ANA 2/2 prerenal state +/- ATN SCr plateaued at 2.4 Insert cardenas Cont laisx renal dose meds AVoid NSAID and contrast # New CHF, Mod pulmo Htn TTE on 09/09/2022 showed moderate pulmonary hypertension with RVSP 52 mmHg, LVEF normal at 69% Lasix Low Na diet [place] po fluid intake # L hip pain Recent mechanical fall Lidocaine patch to L hip PT consult # Hypertension BP at target Pain control as above # Renal cyst Stable, we will follow up as outpatient # Anemia of chronic kidney disease iron sat 35% no candidate for IV iron Received Retacrit monitor CBC Physical Examination - Vital Signs Temperature: 97.3 F Blood Pressure: 132/75 Pulse: 58 Respirations: 14 Pulse Ox (%): 94 Assessment And Plan Physician Review: Patient Assessed, Agree with Above Assessment and Plan
--- NOTE | 2022-09-14 15:12 | RAD REPORT ---
EXAM DESCRIPTION: CT - Thorax Wo Con - 09/14/2022 2:32 pm CLINICAL HISTORY: pleural effusion COMPARISON: Abdomen Pelvis W Contrast dated 05/22/2018 FINDINGS: Chest Wall: No suspicious thyroid nodules or pathologic lymphadenopathy. Lungs: Likely atelectasis as result of the pleural fluid. No other definite acute process identified Pleura: Moderate large right and small moderate left pleural effusion. Mediastinum/jeanette: No pathologic lymphadenopathy. Pulmonary arteries/Aorta: Limited evaluation without contrast. Ascending thoracic aortic aneurysm mallika suring 4.4 cm. Heart: No significant pericardial effusion. Cardiomegaly. Multi-vessel coronary artery disease. Upper abdomen: Not included in the field of view. Bones: No acute abnormality. Anasarca. Motion artifact the sternum and manubrium. . All CT scans are performed using dose optimization technique as appropriate and may include automated exposure control or mA/KV adjustment according to patient size. IMPRESSION: Moderate to large right and small to moderate left pleural effusions with presumably und erlying atelectasis.
--- NOTE | 2022-09-14 16:53 | P.PN ---
Subjective Date of Service: 09/14/22 Chief Complaint: Acute CHF No acute events overnight. This morning he was alert and oriented, without any significant concerns. However, this afternoon, I received a call from RN stating that he had developed acute respiratory distress. His pulse oximetry readings were at 94% on room air. He was mildly tachypneic in the low 20s. CT chest concerning for worsening pleural effusion. Spoke with Dr. Enamorado (on-call radiologist), who stated that he is unavailable for a thoracentesis until tomorrow. Will continue furosemide and place on BiPAP at this time to see if this alleviates his respiratory symptoms. I have updated his family at bedside. Review of Systems 10-point ROS is otherwise unremarkable Neurological: Confusion (intermittent) Physical Examination - Vital Signs Temperature: 98.2 F Blood Pressure: 138/68 Pulse: 74 Respirations: 14 Pulse Ox (%): 96 Assessment And Plan - Plan - Physical Exam General: Alert, agitated, Oriented x3 HEENT: Atraumatic, Sclerae nonicteric Neck: JVD not distended Respiratory: Diminished breath sounds at the bilateral bases. Bibasilar rales. Cardiovascular: Regular rate/rhythm, No murmurs, Edema (1+ BLE) Gastrointestinal: Normal bowel sounds, Soft, Non-distended, No tenderness Musculoskeletal: No clubbing Integumentary: No rashes Neurological: Normal speech, Normal affect # Acute Decompensated Diastolic Congestive Heart Failure with Preserved Ejection Fraction # Moderate Pulmonary Hypertension # Hypertension - Consult Cardiology and spoke with Dr. Serna- recommendations appreciated - Chest x-ray = "1. Cardiomegaly, mild pulmonary venous congestion, small bilateral pleural effusions. 2. Bilateral lower lobe atelectasis." - Bilateral lower extremity Doppler = "No DVT. Bilateral lower extremity edema" - Transthoracic echocardiogram = "1. mild tricuspid regurgitation moderate pulmonary hypertension 2. right ventricular systolic pressure 52 mmHg 3. normal left ventricular ejection fraction and size." - CT chest (09/14) = "moderate to large right and small to moderate left pleural effusions with presumably underlying atelectasis." - Spoke with IR (Dr. Enamorado) - unavailable for thoracentesis until tomorrow - Placed on BiPAP to see if this alleviates symptoms - NPO past midnight for possible thoracentesis tomorrow - Continue furosemide - Continue carvedilol, hydralazine, spironolactone - Daily weights - Strict I/O - Cardiac diet, 1.5 L fluid restriction, 2 g Na restriction # Acute Metabolic Encephalopathy - likely due to Diphenhydramine - resolved - CT head = "no evidence of an acute intracranial process. Chronic findings as above." - Requested MRI brain - unable to obtain due to agitation - Diphenhydramine added to his allergy list # KDIGO Stage I Acute Kidney Injury with possible Chronic Kidney Disease Stage III # Left Renal Cyst (1.4 cm) # Microscopic Hematuria - Nephrology consulted - recommendations appreciated - Creatinine = 2.03 -> 2.23 -> 2.40 -> 2.31 -> 2.22 - Urinalysis = 11-20 RBCs, 1+ protein - Renal ultrasound = "no hydroureteronephrosis or evidence of echogenic calculi. Bilateral increased cortical echogenicity, suggesting medical renal disease. Incidentally noted 1.4 centimeter left renal cyst." - Diuretics as mentioned above - Monitor creatinine and urine output - Renally dose medications # Chronic Atrial Fibrillation s/p Watchman Device # History of Gastric Ulcer - Continue carvedilol - Not on anticoagulation at home - he is s/p Watchchai Santos M.D.
[2022-09-14] MEDS ORDERED: LORazepam 2 MG/ML VIAL IV ONE (18:26)
[2022-09-14] MEDS: DOCUSATE NA 100 MG CAP PO SCH (20:33)
[2022-09-15 04:35] LABS: Magnesium 2.1 mg/dL (1.6-2.4); Phosphorus 3.8 mg/dL (2.5-4.9); Potassium 4.1 mEq/L (3.5-5.1)
[2022-09-15] MEDS: HYDRALAZINE HCL 20 MG/ML VIAL IV PRN (05:24)
[2022-09-15 08:24] LABS: Albumin, (SPE) 2.8 g/dL (3.8-4.8); Alpha-1-Globulins 0.3 g/dL (0.2-0.3); Alpha-2-Globulins 0.6 g/dL (0.5-0.9); Gamma Globulins 1.2 g/dL (0.8-1.7); INTERPRETATION REPORT
[2022-09-15] MEDS: NITROGLYCERIN 0.2 MG/HR (5 MG) PATCH TD SCH (10:41)
[2022-09-15] MEDS: LIDOCAINE 4% PATCH TOP SCH (10:41)
[2022-09-15] MEDS: DOCUSATE NA 100 MG CAP PO SCH ×2 (10:42→21:14)
[2022-09-15] MEDS: SPIRONOLACTONE 25 MG TABLET PO SCH (10:42)
[2022-09-15] MEDS: FUROSEMIDE 40 MG TABLET PO SCH (10:43)
[2022-09-15] MEDS: HYDRALAZINE HCL 25 MG TABLET PO SCH ×3 (10:43→21:14)
--- NOTE | 2022-09-15 12:02 | RAD REPORT ---
EXAM DESCRIPTION: US - Thoracentesis w/ US Guide - 09/15/2022 10:01 am CLINICAL HISTORY: Pleural effusion. PLEURAL EFFUSION COMPARISON: No comparisons FINDINGS: Preoperative diagnosis: Right pleural effusion Post operative diagnosis: Same Conscious Sedation: None. Estimated blood loss: Minimal Specimens:A small volume of fluid was sent for requested lab studies. The patient was placed in the upright recumbent position and the right was prepped and draped in the usual sterile fashion. 1% Lidocaine was infiltrated into the soft tissues for local anesthesia. Und er sonographic guidance, a thoracentesis needle and 6 Yoruba catheter was advanced into the right ple ural space. Approximately 1500 mL yellow fluid was aspirated. Samples were sent to pathology for requ ested analysis. The patient tolerated the procedure without immediate complication and transferred to the floor in stable condition. IMPRESSION: Successful ultrasound-guided thoracentesis as detailed.
[2022-09-15 18:27] LABS: Body Fluid WBC 112 /mm^3
[2022-09-15 19:07] LABS: Body Fluid Source PLEURAL
[2022-09-15 19:08] LABS: Appearance CLEAR (CLEAR); Color of fluid Yellow (COLORLESS)
--- NOTE | 2022-09-16 02:18 | PN ---
Date of Progress Note: 09/15/2022 Chief Complaint: [id number]-qleoxxd congestive heart failure. Subjective: The patient presented with anasarca, lower extremity edema, and shortness of breath. He is to have a thoracentesis today. Review of Systems: patient lethargic , review of the system unobtainable Physical Examination: Lungs: Few rhonchi. Heart: S1, S2. Abdomen: Soft. Extremities: Edema. Impression And Plan: 1. [id number] kidney injury secondary to prerenal state and acute tubular necrosis. Serum creatinine level is gradually improving. The patient has advanced chronic kidney disease. Baseline creatinine level previously was 2.0 in July. Continue Lasix and adjust dose according to volemia status. Avoid nephrotoxic medication. Avoid contrast. 2. Congestive heart failure and moderate pulmonary hypertension. RVSP 52 mmHg. Left ventricular ejection fraction at 69%. Low-sodium diet and Lasix was started. Continue to monitor daily weight. Adjust diuretic dose. 3. Status post fall. PT consult and further workup per Primary Team. 4. Hypertension. Blood pressure overall is controlled. 5. Renal cyst, stable. The patient will follow up outpatient with Urology. 6. Anemia of chronic kidney disease. Iron saturation 35%. Continue DARBY and monitor CBCs. EB/MODL Voice ID: [id number] Report ID: [id number] MTDD
[2022-09-16 06:23] LABS: Absolute Lymphocytes (CBC) 1.6 K/uL (0.7-4.9); Hematocrit 32.5 % (39.6-49.0); Lymphocytes % 21.3 % (15.3-44.8); MCV 96.4 fL (80-100); MPV 7.7 fL (7.6-11.3); RBC Red Blood Cell Count 3.37 M/uL (4.33-5.43)
[2022-09-16 06:41] LABS: Albumin 2.6 g/dL (3.4-5.0); Bilirubin Total 0.4 mg/dL (0.2-1.0); Magnesium 2.2 mg/dL (1.6-2.4); Phosphorus 3.7 mg/dL (2.5-4.9); Potassium 4.2 mEq/L (3.5-5.1); Protein, Total 6.4 g/dL (6.4-8.2)
--- NOTE | 2022-09-16 07:32 | RAD REPORT ---
EXAM DESCRIPTION: [place] Single View09/16/2022 5:21 am CLINICAL HISTORY: Cough COMPARISON: September 14, 2022 FINDINGS: Small to moderate right pleural effusion. No pneumothorax. Basilar atelectasis. Small to moderate left pleural effusion Heart is mildly to moderately enlarged
[2022-09-16] MEDS: DOCUSATE NA 100 MG CAP PO SCH ×2 (10:23→20:38)
[2022-09-16] MEDS: FUROSEMIDE 40 MG TABLET PO SCH (10:23)
[2022-09-16] MEDS: NITROGLYCERIN 0.2 MG/HR (5 MG) PATCH TD SCH (10:23)
[2022-09-16] MEDS: HYDRALAZINE HCL 25 MG TABLET PO SCH ×3 (10:23→20:38)
[2022-09-16] MEDS: POLYETHYL GLY 3350 17 GM/DOSE PO PRN ×2 (10:23→10:25)
[2022-09-16] MEDS: LIDOCAINE 4% PATCH TOP SCH (10:24)
[2022-09-16] MEDS: SPIRONOLACTONE 25 MG TABLET PO SCH (10:24)
[2022-09-16] MEDS ORDERED: ALBUMIN HUMAN 25% 50 ML IV ONE (11:13)
[2022-09-16] MEDS ORDERED: FUROSEMIDE 40 MG/4 ML VIAL IV ONE (11:13)
--- NOTE | 2022-09-16 14:32 | PN ---
Date of Progress Note: 09/16/2022 Subjective: The patient was admitted with acute kidney injury secondary to cardiorenal syndrome. The patient was started on diuresis. Kidney function has been stabilized. The patient having good urine output. Physical Examination: Vital Signs: When I saw the patient; blood pressure 174/79, pulse of 64. The patient had good urine output of 3 L, negative of 2700. Chest: Decreased entry bilateral base with crackles. Heart: S1, S2. Systolic murmur. Abdomen: Soft, nontender. Extremity: Trace edema. Neuro: Alert. Pleasantly confused. No focality. Laboratory Data: Chest x-ray, cardiomegaly with congestion, but much better than before. Sodium 138, potassium 4.2, bicarb 29, BUN 46, creatinine 2.1, GFR of 30, calcium 9.1, phosphorus 3.7, magnesium 2.2. Current Medications: The patient on include; 1. Heparin. 2. Carvedilol 25 mg. 3. Hydralazine 50 t.i.d. 4. Nitroglycerin. 5. Spironolactone 25 daily. 6. Lasix 80 daily. 7. Zofran. Assessment And Plan: 1. Acute kidney injury on chronic kidney disease secondary to cardiorenal, improved significantly. Currently looked to me reached to his euvolemic status. I am going to go ahead and increase his spironolactone to 50 for better blood pressure control. Continue current diuresis dose and we will monitor. 2. Hypertension, not controlled. We will increase hydralazine to 100 mg t.i.d., continue Lasix, increase spironolactone, and we will follow up. 3. Congestive heart failure with exacerbation. We will optimize fluid status as above. 4. Pulmonary hypertension. Increasing hydralazine. Continue spironolactone. Time spent examining the patient [id number], reviewing data, lab and radiology, placing order, discussing the case with the patient and steam gigger including hospitalist and nurses more than 35 minutes. JANET Voice ID: [id number] Report ID: [id number] ALHAJI
[2022-09-16] MEDS: MELATONIN 5 MG TABLET PO PRN (20:38)
[2022-09-17] MEDS ORDERED: ALPRAZOLAM 0.5 MG TABLET PO ONE (00:08)
[2022-09-17] MEDS: HYDRALAZINE HCL 25 MG TABLET PO SCH ×3 (09:06→19:59)
[2022-09-17] MEDS: FUROSEMIDE 40 MG TABLET PO SCH (09:07)
[2022-09-17] MEDS: SPIRONOLACTONE 25 MG TABLET PO SCH (09:07)
[2022-09-17] MEDS: DOCUSATE NA 100 MG CAP PO SCH ×2 (09:07→19:59)
[2022-09-17] MEDS: LIDOCAINE 4% PATCH TOP SCH (09:08)
[2022-09-17] MEDS: NITROGLYCERIN 0.2 MG/HR (5 MG) PATCH TD SCH (10:53)
--- NOTE | 2022-09-17 11:57 | PN ---
Date of Progress Note: 09/17/2022 Subjective: The patient complaining from abdominal pain today. The patient was admitted with acute kidney injury on chronic kidney disease, over volume. The patient was started on diuresis. Kidney function has been stabilized. Physical Examination: Vital Signs: Blood pressure 140/70, pulse of 68, afebrile. The patient had good urine output of 1900, negative of 1500. Chest: Clear to auscultation. Heart: S1, S2. Systolic murmur. Abdomen: Soft, nontender. Extremity: No edema. Neuro: Alert. No focality. Laboratory Data: The patient's chest x-ray significant improvement. Hemoglobin 10.9, sodium 138, potassium 4.2, bicarb 29, BUN 46, creatinine 2.1, GFR of 30, calcium 9.1, phosphorus 3.7, magnesium 2.2. PTH 137. Iron saturation 34. Hemoglobin 10.8. Serum protein electrophoresis positive to elevation without significant M spike. Serology, HIV negative. Assessment And Plan: 1. Acute kidney injury secondary to cardiorenal, plateaued, looked to me on the normal volume side. Yesterday, we increased the spironolactone to 50 mg, we switched the Lasix to oral, the patient maintained well. Blood pressure has been controlled. I am going to continue current diuresis dose and we will monitor the patient. 2. Positive serum protein electrophoresis. I am going to go ahead and get immunofixation. Can be followed as outpatient. 3. Abdominal pain. We will go ahead and get abdominal ultrasound. We will follow up with primary. 4. Hypertension, controlled, optimal. Continue current treatment. 5. Cardiorenal syndrome with congestive heart failure, currently normal volume. Continue current diuresis dose. 6. Hyponatremia, dilutional. We will continue Lasix and spironolactone. Time spent examining the patient [id number], reviewing data, lab and radiology, placing order, discussing the case with the patient and deboning team leader including hospitalist and nurses more than 35 minutes. JANET Voice ID: [id number] Report ID: [id number] ALHAJI
--- NOTE | 2022-09-17 20:30 | RAD REPORT ---
EXAM DESCRIPTION: US - Abdomen Exam Complete - 09/17/2022 7:54 pm CLINICAL HISTORY: Abdominal pain COMPARISON: August 2022 FINDINGS: Small to moderate right and small left pleural effusions. The liver has a normal echotexture A gallstone is not seen. The gallbladder wall is not thickened. The biliary tree is normal caliber. The pancreas is normal in size and echotexture The right kidney measures 10 centimeters with a borderline increased echotexture The left kidney measures 18 centimeters with a borderline increased echotexture. A 1.[address] The spleen measures 8 centimeters. Abdominal aorta/IVC do not demonstrate a significant abnormality IMPRESSION: Borderline increased renal echotexture may indicate parenchymal disease
[2022-09-17] MEDS: MELATONIN 5 MG TABLET PO PRN (22:08)
[2022-09-18] MEDS: DOCUSATE NA 100 MG CAP PO SCH ×2 (09:03→20:44)
[2022-09-18] MEDS: HYDRALAZINE HCL 25 MG TABLET PO SCH ×3 (09:03→20:43)
[2022-09-18] MEDS: FUROSEMIDE 40 MG TABLET PO SCH (09:04)
[2022-09-18] MEDS: SPIRONOLACTONE 25 MG TABLET PO SCH (09:04)
[2022-09-18] MEDS: NITROGLYCERIN 0.2 MG/HR (5 MG) PATCH TD SCH (09:05)
[2022-09-18] MEDS: LIDOCAINE 4% PATCH TOP SCH (09:05)
--- NOTE | 2022-09-18 13:16 | PN ---
Date of Progress Note: 09/18/2022 Subjective: The patient was admitted with acute kidney injury secondary to cardiorenal. The patient has been on diuresis, responding very well. The patient is currently on room air. Physical Examination: Vital Signs: When I saw the patient; blood pressure 116/56, pulse of 81, afebrile. Chest: Faint crackles on the base. Heart: S1, S2. Regular. Systolic murmur. Abdomen: Soft, nontender. Extremity: Trace edema. Neuro: Alert. No focality. Laboratory Data: Hemoglobin 10.8. Sodium 138, potassium 4.2, bicarb 29, BUN 46, creatinine 2.1, calcium 9.1, phosphorus 3.7, magnesium 2.2. Current Medications: The patient on include carvedilol 25 b.i.d., hydralazine 100 t.i.d., nitroglycerin, spironolactone 50 daily, alprazolam, Lasix 80 daily, Zofran, melatonin. Assessment And Plan: 1. Acute kidney injury secondary to cardiorenal, currently looked to me on the normal volume side. Continue current diuresis dose of the Lasix and spironolactone and we will monitor. 2. Positive protein electrophoresis. IPAP still pending. 3. Pleural effusion, status post thoracocentesis. We will follow up with Pulmonary. 4. Congestive heart failure with cardiorenal syndrome. Continue current treatment. Time spent examining the patient [id number], reviewing data, lab and radiology, placing order, discussing the case with the patient and head orthopedic team physician including hospitalist and nurses more than 35 minutes. JANET Voice ID: [id number] Report ID: [id number] MTDBrody
[2022-09-18] MEDS: MELATONIN 5 MG TABLET PO PRN (20:44)
[2022-09-18 22:34] VITALS: O2SAT 95
[2022-09-19] MEDS: NITROGLYCERIN 0.2 MG/HR (5 MG) PATCH TD SCH (08:55)
[2022-09-19] MEDS: HYDRALAZINE HCL 25 MG TABLET PO SCH ×3 (08:57→20:45)
[2022-09-19] MEDS: LIDOCAINE 4% PATCH TOP SCH (08:58)
[2022-09-19] MEDS: SPIRONOLACTONE 25 MG TABLET PO SCH (08:58)
[2022-09-19] MEDS: FUROSEMIDE 40 MG TABLET PO SCH (08:58)
[2022-09-19] MEDS: DOCUSATE NA 100 MG CAP PO SCH ×2 (09:52→20:45)
[2022-09-19] MEDS: POLYETHYL GLY 3350 17 GM/DOSE PO PRN (09:52)
--- NOTE | 2022-09-19 11:19 | P.PN ---
Date of Service: 09/15/22 Subjective Physical Examination - Vital Signs reviewed - Physical Exam General: Alert, agitated, Oriented x3 Respiratory: Diminished breath sounds Cardiovascular: Regular rate/rhythm, No murmurs Gastrointestinal: Normal bowel sounds, Soft, Non-distended, No tenderness Musculoskeletal: No clubbing/cyanosis/edema Neurological: No focal deficits Assessment And Plan - Assessment/Plan # Acute Decompensated Diastolic Congestive Heart Failure with Preserved Ejection Fraction # Moderate Pulmonary Hypertension # Hypertension # Acute Metabolic Encephalopathy - likely due to Diphenhydramine - resolved # KDIGO Stage I Acute Kidney Injury with possible Chronic Kidney Disease Stage III # Left Renal Cyst (1.4 cm) # Microscopic Hematuria # Chronic Atrial Fibrillation s/p Watchman Device # History of Gastric Ulcer
--- NOTE | 2022-09-19 16:23 | P.PN ---
Subjective Date of Service: 09/19/22 Chief Complaint: Acute CHF Subjective: No new changes Physical Examination - Vital Signs Temperature: 97.8 F Blood Pressure: 142/68 Pulse: 71 Respirations: 14 Pulse Ox (%): 92 - Physical Exam General: Other (chronically ill-appearing) HEENT: Atraumatic, Normocephalic Neck: Supple, JVD not distended Respiratory: Other (symmetric chest expansion) Cardiovascular: No rubs, No murmurs Gastrointestinal: Soft and benign, No guarding Musculoskeletal: No clubbing Integumentary: No warmth Neurological: Normal tone Urinary: Other (no bladder distention) External genitalia: Deferred Rectal: Deferred Assessment And Plan - Plan # ANA 2/2 prerenal state +/- ATN SCr improved to 2.1 encourage by mouth fluid intake # New CHF, Mod pulmo Htn TTE on 09/09/2022 showed moderate pulmonary hypertension with RVSP 52 mmHg, LVEF normal at 69% Cont diuretics Low Na diet [place] po fluid intake # L hip pain Recent mechanical fall Lidocaine patch to L hip OOB w/ PT # Hypertension Cont current BP med regimen Pain control as above # Renal cyst Stable, follow up as outpatient # Anemia of chronic kidney disease Received Retacrit monitor CBC # Secondary hyperparathyroidism No need for vitamin D for the time being Recheck serum iPTH as outpt Physician Review: Patient Assessed, Agree with Above Assessment and Plan
[2022-09-19] MEDS ORDERED: ALBUMIN HUMAN 25% 50 ML IV ONE (18:27)
[2022-09-19] MEDS ORDERED: FUROSEMIDE 20 MG/ 2ML VIAL IV ONE (18:27)
[2022-09-19] MEDS: MELATONIN 5 MG TABLET PO PRN (20:46)
[2022-09-20] MEDS: FUROSEMIDE 40 MG TABLET PO SCH (08:26)
[2022-09-20] MEDS: SPIRONOLACTONE 25 MG TABLET PO SCH (08:26)
[2022-09-20] MEDS: DOCUSATE NA 100 MG CAP PO SCH (08:26)
[2022-09-20] MEDS: HYDRALAZINE HCL 25 MG TABLET PO SCH (08:26)
[2022-09-20] MEDS: NITROGLYCERIN 0.2 MG/HR (5 MG) PATCH TD SCH (08:27)
[2022-09-20] MEDS: LIDOCAINE 4% PATCH TOP SCH (08:27)
[2022-09-20 12:04] VITALS: BP 140/72; TEMP 97.9
--- NOTE | 2022-09-20 13:36 | PN ---
Date of Progress Note: 09/20/2022 Subjective: The patient was admitted with acute kidney injury secondary to cardiorenal with CHF exac erbation. The patient was started on diuresis, maintained well. The patient on room air. Kidney fu nction has been stabilized. Physical Examination: Vital Signs: Blood pressure 133/70, pulse of 67, afebrile. The patient had good urine output of 110 0 negative balance of 500. Chest: Clear to auscultation. Heart: S1, S2. Systolic murmur. Abdomen: Soft, nontender. Extremities: Trace edema. Significant improvement in edema with wrinkling skin. Neuro: Alert, pleasantly confused. Difficulty hearing. No tremor. Laboratory Data: Hemoglobin 10.8. Sodium 138, potassium 4.2, bicarb 29, BUN 46, creatinine 2.1 that is back on the second. Current Medications: The patient on include: Lasix 80 daily, Zofran, docusate, melatonin. Assessment And Plan: 1.Acute kidney injury secondary to cardiorenal applied to normal volume. I am going to continue cur rent dose of Lasix, and we will continue to monitor the patient. 2.Hypertension, keep utilizing the blood pressure for more diuresis to optimize fluid status. 3.Pleural effusion, status post thoracocentesis. We will follow up with Pulmonary. 4.Congestive heart failure with exacerbation, currently normal volume. Continue Lasix. 5.Abdominal pain. Follow up with the primary. JANET Voice ID: [id number] Report ID: [id number]
[2022-09-20 17:27] LABS: ALBUMIN, PLEURAL FLUID 1.3 g/dL
== END 2022-09-20 14:45 | disposition home health service (06) | DRG 291 ==
LOC: ER 23:00 → 2ND 09-09 02:15
PROVIDERS: ADMIT Internal Medicine; ATTEND Hospitalist
PROC: 5A09457 Assistance with Respiratory Ventilation, 24-96 Consecutive Hours, Continuous Positive Airway Pressure (ICD-10-PCS; 2022-09-14)
PROC: 0W993ZZ Drainage of Right Pleural Cavity, Percutaneous Approach (ICD-10-PCS; principal; 2022-09-15)
DX: I13.0 Hypertensive heart and chronic kidney disease with heart failure and stage 1 through stage 4 chronic kidney disease, or unspecified chronic kidney disease (principal); G92.8 Other toxic encephalopathy; I50.33 Acute on chronic diastolic (congestive) heart failure; N17.0 Acute kidney failure with tubular necrosis; I48.20 Chronic atrial fibrillation, unspecified; N25.81 Secondary hyperparathyroidism of renal origin; E87.1 Hypo-osmolality and hyponatremia; N18.30 Chronic kidney disease, stage 3 unspecified; D63.1 Anemia in chronic kidney disease; I27.20 Pulmonary hypertension, unspecified; I87.8 Other specified disorders of veins; G47.00 Insomnia, unspecified; M25.552 Pain in left hip; I07.1 Rheumatic tricuspid insufficiency; K27.9 Peptic ulcer, site unspecified, unspecified as acute or chronic, without hemorrhage or perforation; N28.1 Cyst of kidney, acquired; R31.29 Other microscopic hematuria; T45.0X5A Adverse effect of antiallergic and antiemetic drugs, initial encounter; Z79.899 Other long term (current) drug therapy; Z95.818 Presence of other cardiac implants and grafts
CPT/HCPCS: 32555; 36415; 70450; 71045; 71250; 74018; 76700; 76770; 80048; 80053; 80069; 80076; 81001; 82042; 82550; 82607; 82728; 82945; 83520; 83540; 83615; 83735; 83880; 83970; 84100; 84145; 84165; 84439; 84443; 84466; 84484; 84550; 85025; 85044; 85610; 86021; 86038; 86160; 86225; 86334; 86430; 87070; 87389; 88108; 88305; 89050; 93005; 93306; 93970; 94010; 94660; 94760; 96365; 96375; 97110; 97116; 97161; 97530; 99285; J0360; J0690; J1644; J1940; J2001; J2270; J2405; P9047; Q5106

== ENCOUNTER 2022-09-28 22:27 | Inpatient (IN) | payer BC ==
[2022-09-28] MEDS ORDERED: ONDANSETRON 4 MG/2 ML VIAL ONE (22:54)
[2022-09-28 23:12] LABS: Absolute Lymphocytes (CBC) 1.2 K/uL (0.7-4.9); Hematocrit 31.4 % (39.6-49.0); Lymphocytes % 15.9 % (15.3-44.8); MCV 97.3 fL (80-100); MPV 8.1 fL (7.6-11.3); RBC Red Blood Cell Count 3.22 M/uL (4.33-5.43)
[2022-09-28 23:15] LABS: Protime INR 0.99
[2022-09-28 23:26] LABS: Specific Gravity 1.014 (1.005-1.030); Urine Bacteria None Seen /HPF (<20); Urine Bilirubin NEGATIVE (Negative); Urine Blood 1+ (Negative); Urine Clarity Clear (Clear); Urine Color Light-Yellow (Yellow); Urine Glucose NEGATIVE (Negative); Urine Protein 1+ (Negative); Urine RBC >50 /HPF (None Seen); Urine Urobilinogen Normal (Normal)
[2022-09-28 23:37] LABS: Albumin 2.7 g/dL (3.4-5.0); Bilirubin Direct 0.1 mg/dL (0-0.2); Bilirubin Indirect, Calculated 0.4 mg/dL (0.2-0.8); Bilirubin Total 0.5 mg/dL (0.2-1.0); Magnesium 2.9 mg/dL (1.6-2.4); Potassium 5.6 mEq/L (3.5-5.1); Protein, Total 6.8 g/dL (6.4-8.2); Troponin High Sensitivity 16.7 pg/mL (<58.9)
[2022-09-29] MEDS ORDERED: ATROPINE SULF 1 MG/10 ML SYR IV ONE ×2 (01:14→05:19)
[2022-09-29] MEDS ORDERED: ZIPRASIDONE MESYLA 20 MG/VIAL IM ONE (01:14)
[2022-09-29] MEDS ORDERED: ONDANSETRON 4 MG/2 ML VIAL ONE (01:14)
[2022-09-29] MEDS ORDERED: MORPHINE 2 MG/ML SYR ONE (01:14)
[2022-09-29] MEDS ORDERED: WATER FOR INJ,STERILE 10 ML ONE (01:16)
[2022-09-29 01:25] LABS: Arterial Blood Carboxyhemoglob 1.6 % (0-1.5); Blood O2 Saturation 95.8 % (92-98.5)
[2022-09-29] MEDS ORDERED: SODIUM BICARB 50 MEQ/50ML VIAL ONE (01:46)
[2022-09-29] MEDS ORDERED: FUROSEMIDE 20 MG/ 2ML VIAL ONE (01:46)
[2022-09-29] MEDS ORDERED: CALCIUM GLUCONATE 1 GM IVPB 2 GM/100 ML BAG IV ONE (01:47)
[2022-09-29] MEDS ORDERED: ALBUMIN HUMAN 25% 50 ML IV ONE ×2 (01:47→03:10)
--- NOTE | 2022-09-29 02:21 | EDPHYS ---
Physician Documentation [facility] Name: Asim Ochoa Age: 82 yrs Sex: Male : 1940 Arrival Date: 09/28/2022 Time: 22:27 Bed 3 Private MD: ED Physician Tyson Celeste HPI: 09/28 22:33 This 82 yrs old Male presents to ER via Unassigned with complaints of sp4 generalized pain. 09/29 02:04 82-year-old male with extensive past medical history of renal failure, congestive heart sp4 failure, pulmonary hypertension, right pleural effusion, physical debility, renal cyst, anemia of chronic disease, hyperparathyroidism, presents with EMS after he developed generalized pain and discomfort. Patient was actually at home being managed with hospice. Family decided to revoke hospice and asked EMS to bring patient to the emergency department. Patient was admitted to this hospital on 09/09/2022 for acute heart failure. Patient was diagnosed with acute decompensated diastolic congestive heart failure with preserved ejection fraction, moderate pulmonary hypertension, renovascular hypertension he was managed with furosemide, carvedilol, hydralazine, spironolactone, moderate to large right pleural effusion was drained via interventional radiology via thoracentesis. Patient was also managed with BiPAP. Patient also was managed for acute metabolic encephalopathy due to Benadryl. And acute kidney injury in the setting of chronic kidney disease. Renal cyst. Microscopic hematuria. Anemia of chronic disease. Chronic atrial fibrillation status post Watchman device. History of gastric ulcer. Patient was discharged home on 09/20/2022 with hospice care for end-stage congestive heart failure and other multiple comorbidities. . Family of the patient states that he developed generalized discomfort, at home patient was thrashing about and screaming. Family stated that they are unable to manage him at home and they wanted patient assessed in the hospital also family stated that hospice is revoked and patient at this time is full code. . Historical: - Home Meds: 09/28 22:38 morphine 20 mg/5 mL (4 mg/mL) Oral solution [Active]; lorazepam 0.5 mg oral tablet lg3 [Active]; promethazine 25 mg Oral tablet [Active]; Hyoscyamine Sulfate SL [Active]; Hydralazine Oral [Active]; Spironolactone Oral [Active]; Furosemide Oral [Active]; Haloperidol Oral [Active]; carvedilol oral [Active]; Senokot Oral [Active]; - PMHx: 22:38 Atrial fibrillation; Hypertension; Ulcers; Dementia; CHF; ESRD; failure to thrive; lg3 - PSHx: 22:38 watchman; lg3 - Immunization history:: Adult Immunizations up to date. - Social history:: Smoking status: unknown. - Family history:: not pertinent. ROS: 09/29 02:04 Constitutional: Negative for fever, chills, and weight loss, positive for generalized sp4 pain, and agitation Unable to obtain ROS due to altered mental status. Exam: 02:04 Constitutional: This is a thin frail elderly man who is nonverbal at this time. Signs sp4 of moderate to severe dementia also possible encephalopathy and hypoactive delirium. Periodically patient becomes mildly agitated and begins to thrash about the bed . Patient appears acutely uncomfortable, has distended neck veins consistent with volume overload and CHF. Signs of moderate weight loss moderate to severe physical deconditioning Head/Face: Normocephalic, atraumatic. Eyes: Pupils equal round and reactive to light, Lids and lashes normal. Conjunctiva and sclera are not injected. Not able to cooperate for extraocular eye movement ENT: Nares patent. No nasal discharge, no septal abnormalities noted. Tympanic membranes are normal and external auditory canals are clear. Oropharynx with no redness, swelling, or masses, exudates, or evidence of obstruction, uvula midline. Mucous membranes moist. Neck: Trachea midline, no thyromegaly or masses palpated, and no cervical lymphadenopathy. Supple, full range of motion without nuchal rigidity, or vertebral point tenderness. No Meningismus. Chest/axilla: Normal chest wall appearance and motion. Nontender with no deformity. No lesions are appreciated. Cardiovascular: Regular rate and rhythm with a normal S1 and S2. No gallops, murmurs, or rubs. Normal PMI, no JVD. No pulse deficits. Respiratory: Lungs have equal breath sounds bilaterally, bilateral crackles, tachypnea, moderate respiratory distress. Generalized pallor. Dyspnea on exam Abdomen/GI: Soft, non-tender, with normal bowel sounds. No distension or tympany. No guarding or rebound. No evidence of tenderness throughout. Back: No spinal tenderness. No costovertebral tenderness. Male : Normal genitalia with no discharge or lesions. Skin: Generalized pallor, poor skin turgor. Senile skin change with no rashes, no lesions, and no evidence of cellulitis. MS/ Extremity: Pulses equal, no cyanosis. Generalized contractures secondary to immobility and moderate to severe physical debility. Upper extremities on exam. Generalized pallor present Neuro: Patient is obtunded with episodes of periodic agitation. Overall exam is limited 02:04 ECG was reviewed by the Attending Physician. EKG time 2337. Atrial fibrillation at the rate of 72. Left axis deviation. Right bundle branch block. No ventricular ectopy. Vital Signs: 09/28 22:32 BP 128 / 75; Pulse 66; Resp 19 S; Temp 97.9(TE); Pulse Ox 100% on 2 lpm NC; Weight lg3 67.13 kg; 23:30 BP 131 / 61; Pulse 56; Resp 16; Pulse Ox 100% on BiPAP; pf1 09/29 00:30 BP 140 / 63; Pulse 61; Resp 14; Pulse Ox 100% on BiPAP; pf1 01:30 BP 100 / 66; Pulse 71; Resp 14; Pulse Ox 99% on BiPAP; pf1 02:30 BP 96 / 58; Pulse 66; Resp 14; Pulse Ox 99% on BiPAP; pf1 03:24 BP 139 / 104; Pulse 63; Resp 16; Temp 97.9(TE); Pulse Ox 100% on BiPAP; pf1 Oliva Coma Score: 02:04 Eye Response: to pain(2). Motor Response: flexion (decorticate)(3). Verbal Response: sp4 incomprehensible(2). Total: 7. Procedures: 02:04 Central Line: the site was prepped with in sterile fashion, Hibiclens , a triple lumen sp4 catheter was inserted, in the left internal jugular vein, in 1 attempts. placement was verified, by CXR, by blood return, the site was dressed with Tegaderm, using sterile technique, the patient tolerated the procedure, well, Ultrasound-guided left internal jugular triple-lumen central venous line was placed without complication. MDM: 09/28 22:34 Patient medically screened. sp4 09/29 00:00 ED course: August Ochoa . snw 02:04 Differential Diagnosis altered mental status, sepsis, flu. Data reviewed: vital signs, sp4 nurses notes, EMS record, old medical records, lab test result(s), cardiac enzymes, CBC, electrolytes, hepatic panel, urinalysis, EKG, radiologic studies, CT scan, plain films. Consideration of Admission/Observation Patient was admitted/placed on observation. Escalation of care including admission/observation considered. Management of patient was discussed with the following: Hospitalist: Admission hospitalist. ED course: Chest x-ray revealed-diffuse right hemithoracic airspace opacities with layering right effusion. Suspected passive right-sided atelectasis. Cannot exclude a small layering left effusion. Prominent appearance of the right deltoid tuberosity nonspecific. This is favored to request pseudotumor deltoideos. In conclusion new diffuse right hemithoracic airspace opacification with layering right pleural effusion. CT head revealed no acute intrathoracic finding. . 09/28 22:33 Order name: Basic Metabolic Panel; Complete Time: 23:42 [facility] 09/28 22:33 Order name: CBC with Diff; Complete Time: 23:36 4 09/28 22:33 Order name: LFT's; Complete Time: 23:42 [facility] 09/28 22:33 Order name: Magnesium; Complete Time: 23:42 [facility] 09/28 22:33 Order name: NT PRO-BNP; Complete Time: 23:42 4 09/28 22:33 Order name: PT-INR; Complete Time: 23:36 4 09/28 22:33 Order name: Troponin HS; Complete Time: 23:42 [facility] 09/28 22:34 Order name: Lactate w/ 2H reflex if indic.; Complete Time: 23:42 4 09/28 22:34 Order name: Urinalysis W/Microscopic; Complete Time: 23:36 4 09/29 00:36 Order name: ABG; Complete Time: 01:32 4 09/28 22:33 Order name: XRAY Chest (1 view) 4 09/28 22:33 Order name: CT Head Brain wo Cont 4 09/29 00:36 Order name: BIPAP [facility] 09/29 02:00 Order name: XRAY Chest (1 view) 3 09/28 22:33 Order name: EKG; Complete Time: 22:34 4 09/28 22:33 Order name: Cardiac monitoring; Complete Time: 22:49 sp4 09/28 22:33 Order name: EKG - Nurse/Tech; Complete Time: 23:40 sp4 09/28 22:33 Order name: IV Saline Lock; Complete Time: 22:49 sp4 09/28 22:33 Order name: Labs collected and sent; Complete Time: 22:49 sp4 09/28 22:33 Order name: O2 Per Protocol; Complete Time: 22:49 sp4 09/28 22:33 Order name: O2 Sat Monitoring; Complete Time: 22:49 sp4 09/28 22:34 Order name: Mcdermott; Complete Time: 23:02 sp4 09/29 01:23 Order name: Central Line Kit; Complete Time: 01:59 sp4 EC:04 Rate is 72 beats/min. Rhythm is irregularly irregular, A fib. No ST changes noted. sp4 Clinical impression: Atrial Fibrillation and No evidence of ischemia. Interpreted by me. Administered Medications: 09/28 22:49 Drug: Ondansetron IVP 4 mg Route: IVP; Site: right antecubital; lg3 23:40 Follow up: Response: No adverse reaction; Marked relief of symptoms pf1 09/29 01:15 Drug: Atropine IVP 1 mg Route: IVP; Site: right antecubital; pf1 01:56 Follow up: Response: No adverse reaction; Marked relief of symptoms pf1 01:20 Drug: Geodon IM 10 mg Route: IM; Site: left ventrogluteal; pf1 01:57 Follow up: Response: No adverse reaction; Marked relief of symptoms pf1 01:23 Drug: morphine IVP or IV 2 mg Route: IVP; Infused Over: 4 mins; Site: right antecubital;pf1 01:57 Follow up: Response: No adverse reaction; Marked relief of symptoms; Pain is decreased; pf1 RASS: Alert and Calm (0) 01:23 Drug: Ondansetron IVP 4 mg Route: IVP; Site: right antecubital; pf1 01:57 Follow up: Response: No adverse reaction; Marked relief of symptoms pf1 02:04 Drug: Furosemide IVP 20 mg Route: IVP; Site: right antecubital; pf1 03:00 Follow up: Response: No adverse reaction; Marked relief of symptoms pf1 02:07 Drug: Sodium Bicarbonate IVP 1 amp Route: IVP; Site: right antecubital; pf1 03:00 Follow up: Response: No adverse reaction; Marked relief of symptoms pf1 02:15 Drug: Albumin IVPB 25 grams Volume: 100 ml; Route: IVPB; Site: right antecubital; pf1 03:09 Follow up: Response: No adverse reaction; Marked relief of symptoms pf1 03:18 Follow up: Response: No adverse reaction; Marked relief of symptoms; IV Status: pf1 Completed infusion; IV Intake: 100ml 02:18 Drug: Calcium Gluconate IVPB 2 grams Route: IVPB; Infused Over: 60 mins; Site: left pf1 jugular; 03:08 Follow up: Response: No adverse reaction; Marked relief of symptoms pf1 03:18 Follow up: Response: No adverse reaction; Marked relief of symptoms; IV Status: pf1 Completed infusion; IV Intake: 200ml Disposition: 02:04 Co-signature as Attending Physician, Tyson Celeste MD I agree with the assessment sp4 and plan of care. I reviewed the patient's care provided by Advanced Practice Provider \T\ agree w/ the diagnosis \T\ care plan. I personally saw the pt \T\ performed a substantive portion of the visit, incldng all aspects of the (History/Exam/Medical Decision Making). Disposition Summary: 09/29/22 02:21 Hospitalization Ordered Hospitalization Status: Inpatient Admission sp4 Provider: Cachorro Santos Location: Intensive Care Unit sp4 Condition: Serious sp4 Problem: new sp4 Symptoms: have improved sp4 Bed/Room Type: Standard sp4 Room Assignment: 6-(09/29/22 02:54) cg Diagnosis - Acute on chronic renal failure, acute diastolic congestive heart failure, right sp4 pleural effusion, renovascular hypertension, acute metabolic encephalopathy, respiratory acidosis, CHF exacerbation, acute hypoactive delirium - Acute on chronic combined systolic (congestive) and diastolic (congestive) heart sp4 failure Forms: - Medication Reconciliation Form sp4 - SBAR form sp4 Critical care time excluding procedures: 02:04 Critical care time: Bedside Care: 36 minutes, Consultation: 10 minutes, Family sp4 Intervention: 12 minutes. Total time: 58 minutes Signatures: Dispatcher [employer] Mariana Zarate FNP-C SECURITY PUBLIC SAFETY OFFICER-Csnw Attema, Saurabh, SECURITY PUBLIC SAFETY OFFICER-C SECURITY PUBLIC SAFETY OFFICER-Cla1 Karin Andre, RN RN cg Lashae Hanson RN RN lg3 Shayla Adorno RN RN pf1 Tyson Celeste MD MD sp4 Corrections: (The following items were deleted from the chart) 02:54 02:21 sp4
--- NOTE | 2022-09-29 02:21 | ER ---
Nurse's Notes [facility] Name: Asim Ochoa Age: 82 yrs Sex: Male : 1940 Arrival Date: 09/28/2022 Time: 22:27 Bed 3 Private MD: Diagnosis: Acute on chronic renal failure, acute diastolic congestive heart failure, right pleural effusion, renovascular hypertension, acute metabolic encephalopathy, respiratory acidosis, CHF exacerbation, acute hypoactive delirium;Acute on chronic combined systolic (congestive) and diastolic (congestive) heart failure Presentation: 09/28 22:32 Chief complaint: EMS states: toned out by family for "pain all over" pt is currently on lg3 hospice. family states they are planning on revoking hospice care but have not done so yet. . no out of hospital DNR in place. family stated low O2 saturation at home. on EMS arrival Pt not on home O2 as ordered. saturation at 91% on room air. Coronavirus screen: Client denies travel out of the [place] in the last 14 days. At this time, the client does not indicate any symptoms associated with coronavirus-19. Ebola Screen: No symptoms or risks identified at this time. Initial Sepsis Screen: Does the patient meet any 2 criteria? No. Patient's initial sepsis screen is negative. Does the patient have a suspected source of infection? No. Patient's initial sepsis screen is negative. Risk Assessment: Do you want to hurt yourself or someone else? Patient reports no desire to harm self or others. Onset of symptoms is unknown. 22:32 Method Of Arrival: EMS: [facility] lg3 22:32 Acuity: JEFF 3 lg3 Triage Assessment: 22:38 General: Appears distressed, uncomfortable, Behavior is restless. Pain: Complains of lg3 pain in all over. EENT: No deficits noted. No signs and/or symptoms were reported regarding the EENT system. Neuro: Light Agitation-Sedation Scale (RASS): +1 Restless Level of Consciousness is awake, confused, Oriented to person. Cardiovascular: No deficits noted. Capillary refill < 3 seconds Patient's skin is warm and dry. Respiratory: No deficits noted. Airway is patent Respiratory effort is even, unlabored, Respiratory pattern is regular, symmetrical, Breath sounds are clear bilaterally. GI: No deficits noted. No signs and/or symptoms were reported involving the gastrointestinal system. Abdomen is flat, non-distended. : No deficits noted. No signs and/or symptoms were reported regarding the genitourinary system. Derm: No deficits noted. No signs and/or symptoms reported regarding the dermatologic system. Skin is intact, is thin, Skin is dry, Skin is normal, Skin temperature is warm. Musculoskeletal: No signs and/or symptoms reported regarding the musculoskeletal system. Circulation, motion, and sensation intact. Historical: - Home Meds: 22:38 morphine 20 mg/5 mL (4 mg/mL) Oral solution [Active]; lorazepam 0.5 mg oral tablet lg3 [Active]; promethazine 25 mg Oral tablet [Active]; Hyoscyamine Sulfate SL [Active]; Hydralazine Oral [Active]; Spironolactone Oral [Active]; Furosemide Oral [Active]; Haloperidol Oral [Active]; carvedilol oral [Active]; Senokot Oral [Active]; - PMHx: 22:38 Atrial fibrillation; Hypertension; Ulcers; Dementia; CHF; ESRD; failure to thrive; lg3 - PSHx: 22:38 watchman; lg3 - Immunization history:: Adult Immunizations up to date. - Social history:: Smoking status: unknown. - Family history:: not pertinent. Screenin:45 [facility] ED Fall Risk Assessment (Adult) History of falling in the last 3 months, lg3 including since admission No falls in past 3 months (0 pts). Abuse screen: Denies threats or abuse. Denies injuries from another. Nutritional screening: No deficits noted. Tuberculosis screening: No symptoms or risk factors identified. Assessment: 22:44 General: see triage assessment . lg3 23:30 General: Appears in no apparent distress. Behavior is AMS. pf1 23:30 Pain: Unable to use pain scale. Patient is disoriented. Neuro: Level of Consciousness pf1 is confused, Oriented to AMS. Cardiovascular: Capillary refill < 3 seconds Patient's skin is warm and dry. 23:30 Respiratory: Airway is patent Trachea midline Respiratory effort is even, unlabored, pf1 Respiratory pattern is regular, symmetrical, patient on 02 2LNC. 23:30 GI: Abdomen is flat, non-distended, Bowel sounds present X 4 quads. : Mcdermott in place pf1 to gravity drainage. EENT: No deficits noted. No signs and/or symptoms were reported regarding the EENT system. Derm: No deficits noted. No signs and/or symptoms reported regarding the dermatologic system. 09/29 00:30 Reassessment: Patient appears in no apparent distress at this time. Patient and/or pf1 family updated on plan of care and expected duration. Pain level reassessed. Patient states symptoms have improved. 01:30 Reassessment: Patient appears in no apparent distress at this time. Patient and/or pf1 family updated on plan of care and expected duration. Pain level reassessed. Patient states symptoms have improved. 02:30 Reassessment: Patient appears in no apparent distress at this time. Patient and/or pf1 family updated on plan of care and expected duration. Pain level reassessed. Patient states symptoms have improved. Vital Signs: 09/28 22:32 BP 128 / 75; Pulse 66; Resp 19 S; Temp 97.9(TE); Pulse Ox 100% on 2 lpm NC; Weight lg3 67.13 kg; 23:30 BP 131 / 61; Pulse 56; Resp 16; Pulse Ox 100% on BiPAP; pf1 09/29 00:30 BP 140 / 63; Pulse 61; Resp 14; Pulse Ox 100% on BiPAP; pf1 01:30 BP 100 / 66; Pulse 71; Resp 14; Pulse Ox 99% on BiPAP; pf1 02:30 BP 96 / 58; Pulse 66; Resp 14; Pulse Ox 99% on BiPAP; pf1 03:24 BP 139 / 104; Pulse 63; Resp 16; Temp 97.9(TE); Pulse Ox 100% on BiPAP; pf1 [place] Coma Score: 02:04 Eye Response: to pain(2). Motor Response: flexion (decorticate)(3). Verbal Response: sp4 incomprehensible(2). Total: 7. ED Course: 09/28 22:31 Patient arrived in ED. lg3 22:32 Lashae Hanson RN is Primary Nurse. lg3 22:32 Tyson Celeste MD is Attending Physician. sp4 22:38 Triage completed. lg3 22:38 Arm band placed on right wrist. lg3 22:45 Patient has correct armband on for positive identification. Placed in gown. Bed in low lg3 position. Call light in reach. Side rails up X2. Client placed on continuous cardiac and pulse oximetry monitoring. NIBP monitoring applied. monitoring coordinator on. Door closed. Noise minimized. Warm blanket given. 22:45 Oxygen administration via nasal cannula \\T\\ 2L/min. lg3 22:46 Maintain EMS IV. Dressing intact. Good blood return noted. Site clean \\T\\ dry. Gauge \\T\\ lg 3 site: 18 RAC. IV is patent. 22:49 XRAY Chest (1 view) In Process Unspecified. EDMS 22:53 Basic Metabolic Panel Sent. rv1 22:53 CBC with Diff Sent. rv1 22:53 LFT's Sent. rv1 22:53 Magnesium Sent. rv1 22:53 NT PRO-BNP Sent. rv1 22:53 PT-INR Sent. rv1 22:53 Troponin HS Sent. rv1 22:54 Lactate w/ 2H reflex if indic. Sent. rv1 23:02 Mcdermott cath inserted, using sterile technique, 16 Fr., by va, balloon inflated, to lg3 gravity drainage, urine specimen collected. returned clear yellow urine. Patient tolerated well. 23:10 Lactate w/ 2H reflex if indic. Sent. rv1 23:10 Basic Metabolic Panel Sent. rv1 23:10 CBC with Diff Sent. rv1 23:10 LFT's Sent. rv1 23:10 Magnesium Sent. rv1 23:10 NT PRO-BNP Sent. rv1 23:10 PT-INR Sent. rv1 23:10 Troponin HS Sent. rv1 23:32 CT Head Brain wo Cont In Process Unspecified. EDMS 09/29 00:57 Call son, Joshua Ochoa, with any updates [phone]. rv1 01:40 Assisted provider with central line placement. Set up central line tray. Triple lumen pf1 line placed in left internal jugular. Line placed by Tyson Celeste MD Placement verified by CXR, blood return, Dressed with Tegaderm, Patient tolerated well. Before procedure, did Practitioner(s) obtain informed consent? No. Patient \\T\\ family education about procedure, CLABSI prevention and S/S of infection? No. Time-out/Briefing performed prior to start of procedure? Yes. Was handwashing/sanitizing done immediately prior to procedure? Yes. Was patient positioned to in a way to prevent air embolism? Yes. Was procedure site sterilized? Yes, with chlorhexidine. Was the site allowed to dry? Yes. Was local anesthetic and/or sedation utilized? Yes. During the procedure, did the Practitioner(s) maintain a sterile field? Yes. Were unused ports clamped during insertion? Yes. Was blood aspirated from each lumen? Yes. After the procedure, did the Practitioner(s) clean the site and apply a sterile dressing? Yes. consent not obtained due to patient having altered mental status. 02:11 BIPAP Sent. lg3 02:17 XRAY Chest (1 view) In Process Unspecified. EDMS 02:20 Cachorro Santos MD is Hospitalizing Provider. sp4 03:47 Patient admitted, IV remains in place. pf1 Administered Medications: 09/28 22:49 Drug: Ondansetron IVP 4 mg Route: IVP; Site: right antecubital; lg3 23:40 Follow up: Response: No adverse reaction; Marked relief of symptoms pf1 09/29 01:15 Drug: Atropine IVP 1 mg Route: IVP; Site: right antecubital; pf1 01:56 Follow up: Response: No adverse reaction; Marked relief of symptoms pf1 01:20 Drug: Geodon IM 10 mg Route: IM; Site: left ventrogluteal; pf1 01:57 Follow up: Response: No adverse reaction; Marked relief of symptoms pf1 01:23 Drug: morphine IVP or IV 2 mg Route: IVP; Infused Over: 4 mins; Site: right antecubital;pf1 01:57 Follow up: Response: No adverse reaction; Marked relief of symptoms; Pain is decreased; pf1 RASS: Alert and Calm (0) 01:23 Drug: Ondansetron IVP 4 mg Route: IVP; Site: right antecubital; pf1 01:57 Follow up: Response: No adverse reaction; Marked relief of symptoms pf1 02:04 Drug: Furosemide IVP 20 mg Route: IVP; Site: right antecubital; pf1 03:00 Follow up: Response: No adverse reaction; Marked relief of symptoms pf1 02:07 Drug: Sodium Bicarbonate IVP 1 amp Route: IVP; Site: right antecubital; pf1 03:00 Follow up: Response: No adverse reaction; Marked relief of symptoms pf1 02:15 Drug: Albumin IVPB 25 grams Volume: 100 ml; Route: IVPB; Site: right antecubital; pf1 03:09 Follow up: Response: No adverse reaction; Marked relief of symptoms pf1 03:18 Follow up: Response: No adverse reaction; Marked relief of symptoms; IV Status: pf1 Completed infusion; IV Intake: 100ml 02:18 Drug: Calcium Gluconate IVPB 2 grams Route: IVPB; Infused Over: 60 mins; Site: left pf1 jugular; 03:08 Follow up: Response: No adverse reaction; Marked relief of symptoms pf1 03:18 Follow up: Response: No adverse reaction; Marked relief of symptoms; IV Status: pf1 Completed infusion; IV Intake: 200ml Medication: 02:58 VIS not applicable for this client. pf1 Intake: 03:18 IV: 200ml; Total: 200ml. pf1 03:18 IV: 100ml; Total: 300ml. pf1 Output: 03:30 Urine: 300ml (Mcdermott); Total: 300ml. pf1 Outcome: 02:21 Decision to Hospitalize by Provider. sp4 03:46 Admitted to ICU accompanied by nurse, via stretcher, room 6, with oxygen, on monitor, pf1 with chart, Report called to ALISON Hartmann 03:46 Condition: stable 03:47 Patient left the ED. pf1 Signatures: Dispatcher [employer] EDLashae Meng RN RN lg3 Shayla Adorno RN RN pf1 Jennifer Arshad rv1 Tyson Celeste MD MD sp4 Corrections: (The following items were deleted from the chart) 02:36 05/14 23:30 Pain: Unable to use pain scale. Patient is disoriented. pf1 pf1
--- NOTE | 2022-09-29 03:07 | P.HP ---
Certification for Inpatient Patient admitted to: Inpatient With expected LOS: >2 Midnights Patient will require the following post-hospital care: None Practitioner: I am a practitioner with admitting privileges, knowledge of patient current condition, hospital course, and medical plan of care. Services: Services provided to patient in accordance with Admission requirements found in Title 42 Section 412.3 of the Code of Federal Regulations Patient History Date of Service: 09/29/22 Reason for admission: ANA/CHF History of Present Illness: 82-year-old male with history of chronic diastolic congestive heart failure, moderate pulmonary hypertension, hypertension, CKD 3, chronic atrial fibrillation status post Watchman device, history of gastric ulcer presents to the emergency department with chief complaint of shortness of breath, Pain, agitation per family. Patient was discharged from our facility to home on hospice on 09/21/2019., Patient's son Joshua Ochoa reports that his father has been home since then it has appeared very uncomfortable, agitated and shortness of breath, he has been yelling out. They reportedly attempted to reach out to hospice notes medications adjusted. He was brought to the emergency department for evaluation, family/Joshua chose to revoke hospice he wishes for his mother to be medically optimized. He was evaluated in the emergency department his labs were significant for ANA on CKD creatinine 3.54 GFR 16 BUN 87 BNP 5715 sodium 130 potassium 5.6 chloride 95 ABG was performed which revealed a pH of 7.31 PCO2 64.2, patient is altered, currently on BiPAP. Discussed situation with son at length, he agrees patient should not be treated with aggressive measures including CPR/intubation but does not wish for further evaluation/treatment for his kidney injury/CHF/agitation and pain. Will admit to the ICU for further management. Allergies diphenhydramine [From Benadryl] Allergy (Intermediate, Verified 09/12/22 10:13) Shortness of breath Home Medications: Amlodipine Besylate/Benazepril [Amlodipine-Benazepril 10-20 mg] 10 mg PO DAILY 05/23/18 Docusate [Colace Cap*] 100 mg PO BID #60 cap 09/20/22 Furosemide [Lasix] 40 mg PO BIDL #60 tab 09/20/22 Hydralazine HCl 100 mg PO TID #90 tab 09/20/22 Lidocaine 4% Patch [Lidoderm 5% Patch*] 1 patch TOP DAILY #30 pat 09/20/22 Melatonin 5 mg PO BEDTIME PRN PRN #30 tab 09/20/22 Spironolactone [Aldactone*] 50 mg PO DAILY #60 tab 09/20/22 carvediloL [Coreg*] 25 mg PO BID #60 tab 09/20/22 - Past Medical/Surgical History Diabetic: No -: Hypertension -: Gastric ulcer -: Atrial fibrillation status post Watchman procedure -: Chronic diastolic congestive heart failure -: CKD 3 -: cataract sx -: Watchman procedure Psychosocial/ Personal History: Patient lives at home with family - Social History Alcohol use: No CD- Drugs: No Caffeine use: Yes Place of Residence: Home Review of Systems 10-point ROS is otherwise unremarkable Neurological: Confusion Physical Examination - Physical Exam General: Confused, Other (Responsive to loud verbal stimulus/painful stimulus) HEENT: Atraumatic, PERRLA, Mucous membr. moist/pink, EOMI, Sclerae nonicteric Neck: Supple, 2+ carotid pulse no bruit, No LAD, Without JVD or thyroid abnormality Respiratory: Diminished Cardiovascular: Regular rate/rhythm, Normal S1 S2 Capillary refill: <2 Seconds Gastrointestinal: Normal bowel sounds, No tenderness Musculoskeletal: No tenderness Integumentary: No rashes Neurological: Other (On BiPAP, alert to loud verbal or physical stimulus, moves all extremities, occasionally grunts/groans) - Studies Laboratory Data (last 24 hrs) 09/28/22 22:40: PT 10.9, INR 0.99 09/28/22 22:40: WBC 7.30, Hgb 10.5 L, Hct 31.4 L, Plt Count 307 09/28/22 22:40: Sodium 130 L, Potassium 5.6 H, BUN 87 H, Creatinine 3.54 H, Glucose 108 H, Magnesium 2.9 H, Total Bilirubin 0.5, AST 13 L, ALT 12 L, Alkaline Phosphatase 57 Assessment and Plan - Plan Assessment: ANA on CKD 3 with hyperkalemia Acute on chronic diastolic congestive heart failure Acute hypercapnic respiratory failure secondary to CHF/pleural effusion Acute metabolic encephalopathy secondary to ANA/respiratory failure Chronic atrial fibrillation status post Watchman procedure Plan: ANA on CKD 3 with hyperkalemia Treated in ED for mild hyperkalemia, no EKG changes associated. Repeat chemistry this morning, nephrology consulted continue diuresis. Acute on chronic diastolic congestive heart failure Continue IV Lasix, other home medications. Blood pressure soft at this time may need to hold blood pressure medication including carvedilol. Continue BiPAP. DNI. Patient recently on hospice at home, hospice was revoked by family with concern for his condition including shortness of breath/agitation/pain. They feel unable to care for him at home. They report that they are in the process of arranging for long-term care at [facility] but this process has not been completed yet per chart review he does not have any SNF benefits. He is likely inpatient hospice appropriate if that is an option I feels that the family would be amendable. Acute hypercapnic respiratory failure secondary to CHF/pleural effusion Continue BiPAP, pulmonology consult in place. Had thoracentesis during recent hospitalization. May benefit with additional thoracentesis although reinitiation of hospice may be more appropriate. Need to have further discussion with family. Acute metabolic encephalopathy secondary to ANA/respiratory failure Continue as above Chronic atrial fibrillation status post Watchman procedure Continue medications. DVT PPX: Heparin subcu Code status: DNR/DNI Discharge Plan: Other (Hospice) Plan to discharge in: 48 Hours - Advance Directives Does patient have a Living Will: No Does patient have a Durable POA for Healthcare: No - Code Status/Comfort Care Code Status Assessed: Yes (DNR) Critical Care: No Time Spent Managing Pts Care (In Minutes): 70
[2022-09-29] MEDS ORDERED: ONDANSETRON 4 MG/2 ML VIAL IV PRN (04:29)
[2022-09-29 05:03] LABS: Absolute Lymphocytes (CBC) 0.9 K/uL (0.7-4.9); Hematocrit 28.6 % (39.6-49.0); Lymphocytes % 13.1 % (15.3-44.8); MCV 96.9 fL (80-100); MPV 7.6 fL (7.6-11.3); RBC Red Blood Cell Count 2.95 M/uL (4.33-5.43)
[2022-09-29] MEDS ORDERED: ATROPINE SULFATE 1 MG/ML INJ IV ONE (05:14)
[2022-09-29 05:27] LABS: Potassium 5.6 mEq/L (3.5-5.1)
[2022-09-29 05:43] LABS: Arterial Blood Carboxyhemoglob 1.6 % (0-1.5); Blood Gas Oxyhemoglobin 92.7 % (94-97); Blood O2 Saturation 95.5 % (92-98.5)
--- NOTE | 2022-09-29 05:53 | P.PN ---
Date of Service: 09/29/22 Was notified by nursing staff that patient's heart rate and blood pressure were dropping, he was becoming bradycardicA-fib rates down to 40s and 50s occasionally dipping into the 30s blood pressure dropped as well with systolic in the 70s patient is likely in cardiogenic shock. Called patient's son and discussed patient's condition again, he stated he would come up and see him but still does not want any CPR or intubation. Wanted to come to the hospital before discussing pressors. Upon arrival to the hospital evaluated patient at bedside with his son, his son wishes for us to focus on comfort at this point does not want any more aggressive measures including vasopressors, intubation, chest compressions. Discussed the possibility of inpatient hospice, son seems amenable to this at this point time.
[2022-09-29 06:10] VITALS: BMI 20.7
[2022-09-29] MEDS: MORPHINE 2 MG/ML SYR IV PRN ×2 (08:26→13:18)
[2022-09-29] MEDS ORDERED: FUROSEMIDE 40 MG/4 ML VIAL IV SCH (09:00)
[2022-09-29] MEDS ORDERED: HEPARIN 5000 UNIT/ML 1 ML VIAL SQ SCH (09:00)
[2022-09-29 09:16] LABS: Potassium 5.6 mEq/L (3.5-5.1)
--- NOTE | 2022-09-29 11:42 | EKG ---
Test Date: 2022-09-28 Test Time: 23:37:26 Undercover Operator: DARCI MEASUREMENT RESULTS: Intervals: Rate: 72 CA: QRSD: 158 QT: 456 QTc: 499 [place]: P: CA: QRS: -71 T: 57 INTERPRETIVE STATEMENTS: Atrial fibrillation Left axis deviation Right bundle branch block Anteroseptal infarct, age undetermined Abnormal ECG Compared to ECG 09/08/2022 23:49:13 No significant changes Electronically Signed On 09-29-22 11:41:24 CDT by Sarabjit Saucedo
[2022-09-29 12:34] VITALS: O2SAT 100
--- NOTE | 2022-09-29 13:19 | P.DS ---
Admission Date: 09/29/22 Discharge Date: 09/29/22 Disposition: HOSPICE-MEDICAL FACILITY Discharge Condition: FAIR Reason for Admission: ANA/CHF Consultations: 1. Case Management Hospital Course: DIAGNOSES: # Suspect Developing Cardiogenic Shock due to Acute on Chronic Decompensated Diastolic Congestive Heart Failure with Preserved Ejection Fraction # Acute Hypercapnic Respiratory Failure due to above # Acute Toxic Metabolic Encephalopathy due to above # KDIGO Stage I Acute Kidney Injury on Chronic Kidney Disease Stage III with Hyperkalemia # Chronic Atrial Fibrillation s/p Watchman Device # Moderate Pulmonary Hypertension # Hypertension # History of Gastric Ulcer # Left Renal Cyst (1.4 cm) # Microscopic Hematuria HOSPITAL COURSE: Mr. Asim Ochoa is an 82 year old male with a past medical history significant for chronic diastolic congestive heart failure, moderate pulmonary hypertension, hypertension, chronic kidney disease stage III, chronic atrial fibrillation s/p Watchman device, and history of gastric ulcer who was admitted to the [facility] on 09/29/2022 for shortness of breath. Prior to presentation, he was enrolled in hospice services and presented due to worsening symptoms. He was admitted to the Medicine service. On rounds this morning, he was very short of breath and he was on BiPAP. Per his family, he was brought to the hospital because of difficulty managing his symptoms at home. I had a detailed discussion with his , daughter, and son at bedside. I endorsed concern that he may be developing cardiogenic shock as he was bradycardic and hypotensive. We discussed aggressive management with IV diuresis, vasopressors, inotropes, and endotracheal intubation if needed versus resuming hospice/comfort care. They verbalized understanding of both treatment/management plans, and state that hospice/comfort care is most consistent with his wishes. They stated that they would like him to be under i npatient hospice services. With the assistance of case management, he was discharged to inpatient hospice. On 09/29/2022, he was seen on morning rounds. His family members were given the opportunity to ask questions and reported no further questions. Furthermore, all questions were answered to the best of my ability. Today, I personally spent 25 minutes on his case, of which greater than 50% of the time was spent in patient education, counseling, and coordination of care as described above. Vital Signs/Physical Exam: Temp Pulse Resp BP Pulse Ox 96.5 F L 58 17 118/62 100 09/29/22 04:00 09/29/22 08:26 09/29/22 06:00 09/29/22 08:26 09/29/22 06:00 General: Moderate distress (respiratory), Confused HEENT: Atraumatic, Sclerae nonicteric Neck: JVD distended Respiratory: Diminished, Crackles/rales Cardiovascular: No murmurs, Other (Bradycardic rate), Edema (1+ BLE) Gastrointestinal: Hypoactive, Soft and benign, No tenderness Musculoskeletal: No clubbing Integumentary: No rashes Neurological: Other (somnolent, minimally responsive) Laboratory Data at Discharge: WBC 7.00 thou/uL (4.3-10.9) 09/29/22 04:51 Hgb 9.4 g/dL (13.6-17.9) L D 09/29/22 04:51 Hct 28.6 % (39.6-49.0) L 09/29/22 04:51 Plt Count 259 thou/uL (152-406) 09/29/22 04:51 PT 10.9 SECONDS (9.5-12.5) 09/28/22 22:40 INR 0.99 09/28/22 22:40 Sodium 131 mEq/L (136-145) L 09/29/22 08:44 Potassium 5.6 mEq/L (3.5-5.1) H 09/29/22 08:44 BUN 90 mg/dL (7-18) H 09/29/22 08:44 Creatinine 3.43 mg/dL (0.70-1.30) H 09/29/22 08:44 Glucose 103 mg/dL (74-106) 09/29/22 08:44 Magnesium 2.9 mg/dL (1.6-2.4) H 09/28/22 22:40 Total Bilirubin 0.5 mg/dL (0.2-1.0) 09/28/22 22:40 AST 13 U/L (15-37) L 09/28/22 22:40 ALT 12 U/L (16-61) L 09/28/22 22:40 Alkaline Phosphatase 57 U/L (45-117) 09/28/22 22:40 Home Medications: Amlodipine Besylate/Benazepril [Amlodipine-Benazepril 10-20 mg] 10 mg PO DAILY 05/23/18 Docusate [Colace Cap*] 100 mg PO BID #60 cap 09/20/22 Furosemide [Lasix] 40 mg PO BIDL #60 tab 09/20/22 Hydralazine HCl 100 mg PO TID #90 tab 09/20/22 Lidocaine 4% Patch [Lidoderm 5% Patch*] 1 patch TOP DAILY #30 pat 09/20/22 Melatonin 5 mg PO BEDTIME PRN PRN #30 tab 09/20/22 Spironolactone [Aldactone*] 50 mg PO DAILY #60 tab 09/20/22 carvediloL [Coreg*] 25 mg PO BID #60 tab 09/20/22 Physician Discharge Instructions: - Continue care with [facility] Diet: Regular Activity: Bedrest Time spent managing pt's care (in minutes): 25
[2022-09-29 13:46] VITALS: BP 109/48; TEMP 97.2
--- NOTE | 2022-09-30 15:15 | RAD REPORT ---
EXAM DESCRIPTION: RAD - Chest Single View - 09/29/2022 2:15 am CLINICAL HISTORY: Central line verification COMPARISON: 09/28/2022. TECHNIQUE: XR CHEST 1 VIEW 09/29/2022 2:00 AM CDT FINDINGS: The heart is enlarged. There is mild diffuse interstitial prominence throughout both lungs . There are bilateral large pleural effusions, more so on the right. There is no pneumothorax. There are no acute osseous findings. Left IJ central line tip is in the lower SVC. IMPRESSION: No pneumothorax following left IJ central line placement. Electronically signed by: Francisco Krueger MD 09/29/2022 2:24 AM CDT Due to temporary technical issues with the PACS/Fluency reporting system, reports are being signed by the in house radiologist without review as a courtesy to ensure prompt reporting. The interpreting r adiologist is fully responsible for the content of the report.
--- NOTE | 2022-09-30 16:30 | RAD REPORT ---
EXAM DESCRIPTION: RAD - Chest Single View - 09/28/2022 10:48 pm CLINICAL HISTORY: Central line verification COMPARISON: 09/28/2022. TECHNIQUE: XR CHEST 1 VIEW 09/29/2022 2:00 AM CDT FINDINGS: The heart is enlarged. There is mild diffuse interstitial prominence throughout both lungs . There are bilateral large pleural effusions, more so on the right. There is no pneumothorax. There are no acute osseous findings. Left IJ central line tip is in the lower SVC. IMPRESSION: No pneumothorax following left IJ central line placement. Electronically signed by: Francisco Krueger MD 09/29/2022 2:24 AM CDT Due to temporary technical issues with the PACS/Fluency reporting system, reports are being signed by the in house radiologist without review as a courtesy to ensure prompt reporting. The interpreting r adiologist is fully responsible for the content of the report.
--- NOTE | 2022-09-30 16:31 | RAD REPORT ---
EXAM DESCRIPTION: CT - Head Brain Wo Cont - 09/29/2022 6:38 am CLINICAL HISTORY: AMS COMPARISON: 09/12/2022. TECHNIQUE: CT HEAD WITHOUT IV CONTRAST on 09/28/2022 10:33 PM CDT This exam was performed according to our departmental dose-optimization program, which includes autom ated exposure control, adjustment of the mA and/or kV according to patient size and/or use of iterati ve reconstruction technique. FINDINGS: There is no acute hemorrhage, mass effect or midline shift. Bernstein-white differentiation is preserved. There is no hydrocephalus. There is no significant volume loss for age. The calvarium is intact. Orbits and globes are unremarkable. The paranasal sinuses are clear. Mastoid air cells are clear. IMPRESSION: No acute intracranial findings. Electronically signed by: Francisco Krueger MD 09/28/2022 11:44 PM CDT Due to temporary technical issues with the PACS/Fluency reporting system, reports are being signed by the in house radiologist without review as a courtesy to ensure prompt reporting. The interpreting r adiologist is fully responsible for the content of the report.
== END 2022-09-29 13:46 | disposition hospice, inpatient (51) | DRG 291 ==
LOC: ER 22:27 → ERHOLD 09-29 02:24 → 3RD-ICU 09-29 03:00
PROVIDERS: ADMIT Internal Medicine; ATTEND Internal Medicine
PROC: 5A09357 Assistance with Respiratory Ventilation, Less than 24 Consecutive Hours, Continuous Positive Airway Pressure (ICD-10-PCS; principal; 2022-09-29)
PROC: 05HN33Z Insertion of Infusion Device into Left Internal Jugular Vein, Percutaneous Approach (ICD-10-PCS; 2022-09-29)
PROC: B548ZZA Ultrasonography of Superior Vena Cava, Guidance (ICD-10-PCS; 2022-09-29)
DX: I13.0 Hypertensive heart and chronic kidney disease with heart failure and stage 1 through stage 4 chronic kidney disease, or unspecified chronic kidney disease (principal); G92.8 Other toxic encephalopathy; I50.33 Acute on chronic diastolic (congestive) heart failure; J96.02 Acute respiratory failure with hypercapnia; R57.0 Cardiogenic shock; N17.9 Acute kidney failure, unspecified; I48.20 Chronic atrial fibrillation, unspecified; F03.C11 Unspecified dementia, severe, with agitation; N18.30 Chronic kidney disease, stage 3 unspecified; I27.20 Pulmonary hypertension, unspecified; E87.5 Hyperkalemia; Z66 Do not resuscitate; N28.1 Cyst of kidney, acquired; R31.29 Other microscopic hematuria; Z95.818 Presence of other cardiac implants and grafts; Z51.5 Encounter for palliative care; R62.7 Adult failure to thrive
CPT/HCPCS: 36415; 70450; 71045; 80048; 80076; 81001; 82805; 83605; 83735; 83880; 84484; 85025; 85610; 93005; 94660; 94760; J0461; J0610; J1644; J1940; J2270; J2405; J3486; P9047

== ENCOUNTER 2022-09-29 14:03 | Inpatient (IN) | payer BC, OTHER ==
[2022-09-29] MEDS ORDERED: LORazepam 2 MG/ML VIAL IV PRN (14:25)
[2022-09-29] MEDS ORDERED: MORPHINE 4 MG/ML SYR IV PRN (14:25)
[2022-09-29] MEDS ORDERED: ACETAMINOPHEN 650MG/RECT SUPP PR PRN (14:26)
[2022-09-29] MEDS ORDERED: BISACODYL 10 MG RECTAL SUPP PR PRN (14:27)
[2022-09-29] MEDS ORDERED: ONDANSETRON 4 MG/2 ML VIAL IV PRN (14:29)
[2022-09-29] MEDS ORDERED: SCOPOLAMINE HYDROBROMIDE PATCH TD PRN (14:29)
[2022-09-29 14:50] VITALS: BMI 20.7
[2022-09-29] MEDS: LORazepam 2 MG/ML VIAL IV SCH (18:33)
[2022-09-29] MEDS: MORPHINE 4 MG/ML SYR IV SCH ×2 (18:34→21:19)
[2022-09-29] MEDS ORDERED: FUROSEMIDE 40 MG/4 ML VIAL IV SCH (21:00)
[2022-09-29 21:14] VITALS: BP 90/52; TEMP 96.9
[2022-09-29 22:56] VITALS: O2SAT 93
[2022-09-30] MEDS: LORazepam 2 MG/ML VIAL IV SCH (00:24)
[2022-09-30] MEDS: MORPHINE 4 MG/ML SYR IV SCH (01:26)
== END 2022-09-30 04:19 | disposition expired | DRG 951 ==
LOC: 3RD-ICU 14:03 → 2ND 17:34
PROVIDERS: ADMIT Internal Medicine Hematology & Oncology; ATTEND Internal Medicine Hematology & Oncology
DX: Z51.5 Encounter for palliative care (principal)
CPT/HCPCS: 94660; J1940